=== PATIENT | female | born 1945 | race Caucasian/White ===

== ENCOUNTER 2017-08-21 11:22 | Inpatient (IN) | payer OTHER ==
[~2017-08-21] VITALS: Ht 157.5 cm; Wt 71.7 kg
[~2017-08-21 11:22] MED LIST: AMIODARONE; AMIODARONE HCL200 MG PO; ASPIR 8181 MG PO; ASPIRIN; CATAPRES0.1 MG PO; COUMADIN5 MG PO; DIGOXIN125 MCG PO; FUROSEMIDE; FUROSEMIDE20 MG PO; HYDRALAZINE HCL25 MG PO; KEFLEX250 MG PO; LASIX40 MG PO; LEVOTHYROXINE150 MCG PO; LOPRESSOR25 MG PO; MEDROL4 MG/DOSE- PO; METOPROLOL; METOPROLOL SUCC25 MG PO; METOPROLOL SUCC50 MG PO; METOPROLOL TART50 MG PO; MIDODRINE HCL2.5 MG PO; MIDORINE PO; PRAVACHOL40 MG PO; PRAVASTATIN; PREDNISONE5 MG PO; SODIUM BICARBO650 MG PO; SODIUM BICARBONATE; SYMBICORT 80-10.2 GM INH; THYROID; ULTRACET TABLE1 EACH PO; VITAMIN B-12500 MCG PO; VITAMIN B12-FO1 EACH PO; VITAMIN D; VITAMIN D400 UNI1 PO; VITAMIN D400 UNIT PO; WARFARIN SODIU2.5 MG PO; XOPENEX1.25 MG/3 INH; [UNRECOGNIZED DRUG - CODE] PO
--- OUTSIDE RECORDS SUMMARY | 2017-08-21 11:26 | XMS REPORT ---
Author Author [facility] Address Unknown Phone Unavailable Care Team Providers Care Wheel Adjuster Name Role Phone BREE SUSHILA Unavailable Unavailable CARLY RINCON Unavailable Unavailable KETTY BEAR Unavailable Unavailable Problems This patient has no known problems. Allergies, Adverse Reactions, Alerts This patient has no known allergies or adverse reactions. Medications This patient has no known medications. Results Test Description Test Time Test Comments Text Results Atomic Results Result Comments HEPATITIS B SURFACE ANTIGEN 2017-03-25 09:53:00 HEPATITIS B SURFACE ANTIGEN (2) (BEAKER) (test pnwc=5997) Nonreactive Nonreactive CBC W/PLT COUNT & AUTO [id number] 05:35:00* Test Item Value Reference Range Comments WHITE BLOOD CELL COUNT (BEAKER) (test kczq=445) 5.1 K/ L 3.5-10.5 RED BLOOD CELL COUNT (BEAKER) (test zkoj=886) 3.23 M/ L 3.93-5.22 HEMOGLOBIN (BEAKER) (test cvrc=904) 9.7 GM/DL 11.2-15.7 HEMATOCRIT (BEAKER) (test eunt=283) 32.1 % 34.1-44.9 MEAN CORPUSCULAR VOLUME (BEAKER) (test ulle=471) 99.4 fL 79.4-94.8 MEAN CORPUSCULAR HEMOGLOBIN (BEAKER) (test lhoi=351) 30.0 pg 25.6-32.2 MEAN CORPUSCULAR HEMOGLOBIN CONC (BEAKER) (test kpdr=683) 30.2 GM/DL 32.2- 35.5 RED CELL DISTRIBUTION WIDTH (BEAKER) (test dwxv=844) 18.3 % 11.7-14.4 PLATELET COUNT (BEAKER) (test rpvg=708) 92 K/CU MM 150-450 MEAN PLATELET VOLUME (BEAKER) (test thpr=650) 11.5 fL 9.4-12.3 NUCLEATED RED BLOOD CELLS (BEAKER) (test gdhz=131) 0 /100 WBC 0-0 NEUTROPHILS RELATIVE PERCENT (BEAKER) (test oith=242) 64 % LYMPHOCYTES RELATIVE PERCENT (BEAKER) (test ipac=680) 18 % MONOCYTES RELATIVE PERCENT (BEAKER) (test drvn=952) 10 % EOSINOPHILS RELATIVE PERCENT (BEAKER) (test enmz=926) 7 % BASOPHILS RELATIVE PERCENT (BEAKER) (test xnyr=416) 1 % NEUTROPHILS ABSOLUTE COUNT (BEAKER) (test wlyl=202) 3.27 K/ L 1.56-6.13 LYMPHOCYTES ABSOLUTE COUNT (BEAKER) (test tkug=859) 0.89 K/ L 1.18-3.74 MONOCYTES ABSOLUTE COUNT (BEAKER) (test btra=040) 0.48 K/ L 0.24-0.36 EOSINOPHILS ABSOLUTE COUNT (BEAKER) (test hury=072) 0.36 K/ L 0.04-0.36 BASOPHILS ABSOLUTE COUNT (BEAKER) (test jrdh=483) 0.06 K/ L 0.01-0.08 IMMATURE GRANULOCYTES-RELATIVE PERCENT (BEAKER) (test kzhs=8011) 0 % 0-1 BASIC METABOLIC [id number] 04:31:00* Test Item Value Reference Range Comments SODIUM (BEAKER) (test zslx=804) 135 meq/L 136-145 POTASSIUM (BEAKER) (test upkt=755) 5.5 meq/L 3.5-5.1 CHLORIDE (BEAKER) (test grse=900) 102 meq/L 98-107 CO2 (BEAKER) (test ouqg=120) 22 meq/L 22-29 BLOOD UREA NITROGEN (BEAKER) (test ghrj=062) 49 mg/dL 7-21 CREATININE (BEAKER) (test betd=389) 7.52 mg/dL 0.57-1.25 GLUCOSE RANDOM (BEAKER) (test eiip=839) 74 mg/dL 70-105 CALCIUM (BEAKER) (test scws=314) 8.1 mg/dL 8.4-10.2 EGFR (BEAKER) (test xadg=7546) 5 mL/min/1.73 sq m ESTIMATED GFR IS NOT ACCURATE CREATININE CLEARANCE IN PREDICTING GLOMERULAR FILTRATION RATE. ESTIMATED GFR IS NOT APPLICABLE FOR DIALYSIS PATIENTS. PROTHROMBIN TIME/[id number] 04:22:00* Test Item Value Reference Range Comments PROTIME (BEAKER) (test qowc=538) 15.6 seconds 11.7-14.7 INR (BEAKER) (test tkzf=482) 1.3 <=5.9 RECOMMENDED COUMADIN/WARFARIN INR THERAPY RANGESSTANDARD DOSE: 2.0 - 3.0 Includes: PROPHYLAXIS for venous thrombosis, systemic embolization; TREATMENT for venous thrombosis and/or pulmonary embolus.HIGH RISK: Target INR is 2.5-3.5 for patients with mechanical heart valves.While on warfarin.[id number] 13:53:00* Test Item Value Reference Range Comments ACTIVATED CLOTTING TIME (BEAKER) (test blyv=023) 136 sec TESTED AT [place] [address] [id number] 13:43:00* Test Item Value Reference Range Comments ACTIVATED CLOTTING TIME (BEAKER) (test csvg=636) 241 sec TESTED AT [place] [address] [id number] 13:10:00* Test Item Value Reference Range Comments ACTIVATED CLOTTING TIME (BEAKER) (test oyas=385) 191 sec TESTED AT [place] [id number] POTASSIUM-STAT [id number] 09:14:00* Test Item Value Reference Range Comments POTASSIUM (BEAKER) (test nyim=356) 4.5 meq/L 3.6-5.5 B-TYPE NATRIURETIC FACTOR (BNP)2017-03-22 12:40:00* Test Item Value Reference Range Comments B-TYPE NATRIURETIC PEPTIDE (BEAKER) (test ogiz=153) 2627 pg/mL 0-100 BASIC METABOLIC [id number] 12:25:00* Test Item Value Reference Range Comments SODIUM (BEAKER) (test wutt=946) 138 meq/L 136-145 POTASSIUM (BEAKER) (test setq=337) 4.8 meq/L 3.5-5.1 CHLORIDE (BEAKER) (test auol=065) 97 meq/L 98-107 CO2 (BEAKER) (test fgxl=130) 26 meq/L 22-29 BLOOD UREA NITROGEN (BEAKER) (test ayvi=287) 36 mg/dL 7-21 CREATININE (BEAKER) (test ksla=478) 5.98 mg/dL 0.57-1.25 GLUCOSE RANDOM (BEAKER) (test iogy=161) 74 mg/dL 70-105 CALCIUM (BEAKER) (test rked=827) 9.0 mg/dL 8.4-10.2 EGFR (BEAKER) (test jagu=6454) mL/min/1.73 sq m INSUFFICIENT CLINICAL DATA TO CALCULATE ESTIMATED GFR. [id number] 12:18:00* Test Item Value Reference Range Comments ALBUMIN (BEAKER) (test inft=6832) 3.4 g/dL 3.5-5.0 PROTHROMBIN TIME/[id number] 12:08:00* Test Item Value Reference Range Comments PROTIME (BEAKER) (test vrax=499) 14.5 seconds 11.7-14.7 INR (BEAKER) (test dzqd=846) 1.1 <=5.9 RECOMMENDED COUMADIN/WARFARIN INR THERAPY RANGESSTANDARD DOSE: 2.0 - 3.0 Includes: PROPHYLAXIS for venous thrombosis, systemic embolization; TREATMENT for venous thrombosis and/or pulmonary embolus.HIGH RISK: Target INR is 2.5-3.5 for patients with mechanical heart valves.CBC W/PLT COUNT & AUTO [id number] 11:58:00* Test Item Value Reference Range Comments WHITE BLOOD CELL COUNT (BEAKER) (test jvzz=698) 5.6 K/ L 3.5-10.5 RED BLOOD CELL COUNT (BEAKER) (test qjxo=773) 3.75 M/ L 3.93-5.22 HEMOGLOBIN (BEAKER) (test hupg=715) 11.4 GM/DL 11.2-15.7 HEMATOCRIT (BEAKER) (test oamd=501) 37.4 % 34.1-44.9 MEAN CORPUSCULAR VOLUME (BEAKER) (test bmdi=495) 99.7 fL 79.4-94.8 MEAN CORPUSCULAR HEMOGLOBIN (BEAKER) (test uhjk=583) 30.4 pg 25.6-32.2 MEAN CORPUSCULAR HEMOGLOBIN CONC (BEAKER) (test xrcd=826) 30.5 GM/DL 32.2- 35.5 RED CELL DISTRIBUTION WIDTH (BEAKER) (test lbdd=712) 19.1 % 11.7-14.4 PLATELET COUNT (BEAKER) (test nloi=628) 118 K/CU MM 150-450 MEAN PLATELET VOLUME (BEAKER) (test fvxo=446) 11.3 fL 9.4-12.3 NUCLEATED RED BLOOD CELLS (BEAKER) (test ncje=676) 0 /100 WBC 0-0 NEUTROPHILS RELATIVE PERCENT (BEAKER) (test ikqh=615) 68 % LYMPHOCYTES RELATIVE PERCENT (BEAKER) (test bobu=250) 17 % MONOCYTES RELATIVE PERCENT (BEAKER) (test sglf=468) 8 % EOSINOPHILS RELATIVE PERCENT (BEAKER) (test xdsh=021) 6 % BASOPHILS RELATIVE PERCENT (BEAKER) (test hjqi=023) 1 % NEUTROPHILS ABSOLUTE COUNT (BEAKER) (test ojcs=505) 3.81 K/ L 1.56-6.13 LYMPHOCYTES ABSOLUTE COUNT (BEAKER) (test rmjx=847) 0.93 K/ L 1.18-3.74 MONOCYTES ABSOLUTE COUNT (BEAKER) (test jvou=275) 0.45 K/ L 0.24-0.36 EOSINOPHILS ABSOLUTE COUNT (BEAKER) (test zkff=670) 0.35 K/ L 0.04-0.36 BASOPHILS ABSOLUTE COUNT (BEAKER) (test ocpx=832) 0.06 K/ L 0.01-0.08 IMMATURE GRANULOCYTES-RELATIVE PERCENT (BEAKER) (test hfzy=6042) 0 % 0-1 CTA, CHEST, ABDOMEN - PELVIS, FOR [id number] 17:16:00Reason for exam:- >TAVR ProtocolAddendum BeginsREPORT STATUS:A ADDENDUM: Study reviewed by radiology. Agree with the nonvascular findings as described below. Signed: Shayne Gibson MDReport Verified Date/Time: 02/23/2017 17:16: 08 Reading Location: [facility] P048 Angio Body Reading RoomAddendum EndsFINAL REPORT CT angiography of the thoracoabdominal aorta and pelvic arteries, 23 February 2017 INDICATION: This is a 72 years old female, with a diagnosis of aortic stenosis presents for preprocedure TAVR assessment. This study is performed in attempt to avoid invasive procedure. TECHNIQUE: Spiral acquisition before and during contrast administration using a Paulette multidetector CT scanner. Multiplanar 3-D volume rendering reformation was performed using an independent workstation interactively by the dictating physician and and the 3-D specialist. The amount of contrast used and method of administration can be found in the scanned EPIC document. This exam was performed according to our departmental dose-optimization program, which includes automated exposure control, adjustment of the mA and/or kV according to patient size and/or use of iterative reconstruction technique. Dose modulation, iterative reconstruction, and/or weight based adjustment of the mA/ kV was utilized to reduce the radiation dose to as low as reasonably achievable. This is a second examination due to IV infiltration during test bolus a few days ago. FINDINGS: VASCULAR: The central pulmonary artery is mildly prominent, measure 3.3 cm in diameter. No evidence of central pulmonary artery embolism is seen. The left ventricle is mildly prominent. Mitral annular calcification is seen, both posteriorly and anteriorly. Left and right atrial enlargement is identified. Diffuse coronary artery calcification is seen in all three coronary territories. A DOLAN graft is identified. At the level of the left brachiocephalic vein, the DOLAN is at most 102 mm behind the sternum at image 67 of the 35% reconstruction. More inferiorly, at image 85, it is approximately 1.3 cm behind the sternum. One bypass graft is seen to the RCA territory and another bypass graft is seen to the left circumflex territory. These grafts, at image 115, is approximately 2.4 cm behind the sternum. Both the RV free wall of the pericardium is in close proximity to the sternum, for example image 172. Patient has a diagnosis of aortic stenosis. Aortic Agatston score is [____]. Aortic valve area by planimetry is 74 mm sq. The location of aortic valvular calcification can be seen in dedicated reformatted data sent to PACS. Regarding the aorta, there is mild calcific atherosclerosis seen in the ascending thoracic aorta and both mild calcific and noncalcific atherosclerosis is seen in the transverse arch, and mild calcific and noncalcific atherosclerosis seen in the descending thoracic aorta. In the abdominal aorta, an endostent is identified, commencing inferior to the takeoff of the left renal artery, with typical salma crossing pattern. No endoleak is identified in the arterial phase image. No delayed images were obtained as this is a dedicated TAVR examination. Volumetric measurement would not be provided in the abdominal aorta. The common iliac, external iliac, common femoral, and the visualized superficial femoral arteries are patent with eccentric calcific atherosclerosis identified. The celiac axis has substantial calcific and noncalcific atherosclerosis seen proximally making accurate assessment limited and there is also mild to moderate calcific atherosclerosis seen in the takeoff of the SMA. The remainder of the SMA, and hepatic and splenic arteries are seen to be well enhanced by contrast. The renal arteries are not well seen. Arch vessel branching pattern is normal. Noncalcific atherosclerosis identified in the proximal left subclavian artery and the left subclavian artery, image 31 measuring 7 to 8 mm in diameter. Nonobstructive calcific atherosclerosis is identified in the right ablation artery, and the minimum diameter of the right occlusion artery, at image 25 is approximately 6 to 7 mm, image 23. Dimensions that may be helpful for TAVR are as below: There is mild calcific atherosclerosis identified in the ascending thoracic aorta. The major and minor aortic annulus diameter measures 24.0 and 18.9 mm, respectively. The aortic annulus perimeter measured 70 mm and the cross-sectional area measures 378 mm2. The aortic annulus diameter at the traditional LVOT and coronal LVOT measures 18.4 and 18.5 mm, respectively. For reference purpose, per [employer] S3 brochure, recommendation are as follows: CT area between 273 to 345 mm2 (20 mm valve); 338 to 430 mm2 (23 mm valve); 430 to 546 mm2 (26 mm valve); 540 to 683 mm2 (29 mm valve). For reference purpose, per [employer] brochure, recommendation are as follows: CT perimeter between 56.5-62.8 mm (23 mm valve); 62.8-72.3 mm (26 mm valve); 72.3-81.7 mm (29 mm valve); and 81.7-94.2. mm (34 mm valve). Agatston Score is 809. By planimetry, the aortic valve area is approximately 74 sq mm. The minimum distance between the most inferior bypass graft to the aortic annulus is approximately 3.6 cm. The sinus of Valsalva height, RCC (systole): 11.8 mmThe sinus of Valsalva height, LCC (systole): 12.9 mm The sinus of Valsalva diameter, RCC (diastole): 28.3 mmThe sinus of Valsalva diameter, LCC (diastole): 26.2 mmThe sinus of Valsalva diameter, NCC (diastole) : 26.2 mm The sinotubular junction measures approximately 26.3 x 25.5 mm. The aortic root angulation measures 31.5 degrees. The angle of delivery is COMORAN 7 CAR 4. The minimal and perpendicular abdominal aortic diameter measure 21.1 and 23.1 mm, respectively. The abdominal aortic diameter measure 6.2 x 6.0 cm by multiplanar reformation. The minimum and the perpendicular left common iliac artery measures 10.3 and 10.7 mm (stent). The minimum and the perpendicular left external iliac artery measures 7.3 and 8.4 mm, respectively with minimal tortuosity and no calcific atherosclerosis present. The minimum and the perpendicular left femoral artery measures 6.3 and 7.4 mm, respectively with minimal tortuosity and mild calcific atherosclerosis present. The minimum and the perpendicular right common iliac artery measures 11.11 and 11.3 mm (stent), with mild calcification seen in the most distal segment, at image 401, measures approximately 8.8 x 9.2 mm. The minimum and the perpendicular right external iliac artery measures 6.2 and 7.4 mm, respectively with mild tortuosity and mild calcific atherosclerosis present. The minimum and the perpendicular right femoral artery measures 6.3 and 6.7 mm, respectively with minimal tortuosity and mild calcific atherosclerosis present. NONVASCULAR: Assessment of the thyroid gland is limited. The chest wall and mediastinum is remarkable for prior median sternotomy. Note there are number of lymph nodes identified in the mediastinum, for example anterior to the ascending thoracic aorta at image 92, the short axis diameter is 1.5 cm and other smaller lymph nodes are seen, for example also below the sergio, image 110, measures up to 1.6 cm in diameter. Clinical significance of this finding is uncertain. Whilst this could be reactive in nature, this should be correlated clinically, and if needed follow with follow-up examination to document stability. In the lung windows, no obvious endobronchial lesion is seen. No pleural effusion is identified. Some subsegmental atelectatic changes are noted. Pulmonary vasculature appears mildly prominent that may reflect underlying cardiac congestion. Correlate with clinical examination. Overall, no suspicious pulmonary nodule is identified. In the abdomen, the liver and spleen appears unremarkable. The liver edge is smooth. No abnormal enhancing structure is identified. Gallstones are seen in the gallbladder with no wall thickening present. The adrenal glands appears not to be enlarged. The pancreas appears grossly unremarkable. The yuhaaviatam kidneys are not identified bilaterally. Correlate clinically. Some surgical clips are seen inferior to the spleen. Bowel is incompletely assessed by CT angiography as enteric contrast is not given. No obvious bowel dilation is identified. Suture material is identified in the right side indicating prior GI surgery. There is diverticular disease present. In addition, there could be some wall thickening identified in the descending and sigmoid colon. An addendum will be dictated thereafter, if needed. Tiny ventral hernia is identified, with loops of bowel present, at image 418. There could be another fat-containing hernia is identified to the right side of the abdomen, for example image 359. The bladder is not distended. The uterus not identified. No obvious abnormal adnexal masses seen though CT is not optimized in assessment of pelvic gynecological structures. There could be surgical clips identified in the dependent portion of the pelvis. Correlate clinically. In the bony windows, no acute bony pathology is identified. Some degenerative changes are noted. Conclusions: 1. Patient has a diagnosis of aortic stenosis. The Agatston score is over 1000. Aortic valve area is approximately 74 sq mm. There is mild calcific atherosclerosis seen in the ascending thoracic aorta. Mild mitral annular calcification is seen in the anterior posterior mitral valve annulus. Diffuse coronary artery calcification is identified and patient is post coronary artery bypass surgery with a DOLAN graft as well as two bypass grafts identified that are patent. Dimensions that may be helpful for TAVR as described above. 2. The central pulmonary artery is mildly prominent with no evidence of central pulmonary artery embolism as described. 3. Other findings as described above including the bowel findings, a degree of mediastinal adenopathy. 4. An addendum will be dictated by the Bridge Attacher Radiologist regarding the nonvascular findings. Signed: [facility] Verified Date/Time: 02/23/2017 12:22:19 Reading Location: [place] [address] Cardiology MRI IUM , [id number] 05:47:00* Test Item Value Reference Range Comments CALCIUM IONIZED (BEAKER) (test puvp=950) 1.09 mmol/L 1.12-1.27 PH, BLOOD (BEAKER) (test yart=0443) 7.39 BASIC METABOLIC [id number] 04:47:00* Test Item Value Reference Range Comments SODIUM (BEAKER) (test txzu=098) 138 meq/L 136-145 POTASSIUM (BEAKER) (test jllp=195) 4.8 meq/L 3.5-5.1 CHLORIDE (BEAKER) (test ohlf=401) 101 meq/L 98-107 CO2 (BEAKER) (test yfwg=066) 26 meq/L 22-29 BLOOD UREA NITROGEN (BEAKER) (test muku=929) 33 mg/dL 7-21 CREATININE (BEAKER) (test zcmj=578) 6.06 mg/dL 0.57-1.25 GLUCOSE RANDOM (BEAKER) (test tkcs=226) 92 mg/dL 70-105 CALCIUM (BEAKER) (test rqty=999) 9.1 mg/dL 8.4-10.2 EGFR (BEAKER) (test ceoc=7984) mL/min/1.73 sq m INSUFFICIENT CLINICAL DATA TO CALCULATE ESTIMATED GFR. [id number] 04:34:00* Test Item Value Reference Range Comments PHOSPHORUS (BEAKER) (test ujny=644) 3.9 mg/dL 2.3-4.7 [id number] 04:34:00* Test Item Value Reference Range Comments MAGNESIUM (BEAKER) (test nspt=538) 2.0 mg/dL 1.6-2.6 CBC W/PLT COUNT & AUTO [id number] 04:31:00* Test Item Value Reference Range Comments WHITE BLOOD CELL COUNT (BEAKER) (test iixg=949) 5.7 K/ L 3.5-10.5 RED BLOOD CELL COUNT (BEAKER) (test wepr=395) 3.07 M/ L 3.93-5.22 HEMOGLOBIN (BEAKER) (test kdzq=511) 9.0 GM/DL 11.2-15.7 HEMATOCRIT (BEAKER) (test hhrr=971) 29.4 % 34.1-44.9 MEAN CORPUSCULAR VOLUME (BEAKER) (test wivz=815) 95.8 fL 79.4-94.8 MEAN CORPUSCULAR HEMOGLOBIN (BEAKER) (test gbrl=500) 29.3 pg 25.6-32.2 MEAN CORPUSCULAR HEMOGLOBIN CONC (BEAKER) (test ihak=345) 30.6 GM/DL 32.2- 35.5 RED CELL DISTRIBUTION WIDTH (BEAKER) (test pncn=351) 17.3 % 11.7-14.4 PLATELET COUNT (BEAKER) (test doax=272) 164 K/CU MM 150-450 MEAN PLATELET VOLUME (BEAKER) (test crpf=871) 10.8 fL 9.4-12.3 NUCLEATED RED BLOOD CELLS (BEAKER) (test nvsh=542) 0 /100 WBC 0-0 NEUTROPHILS RELATIVE PERCENT (BEAKER) (test vxbo=790) 55 % LYMPHOCYTES RELATIVE PERCENT (BEAKER) (test qdtp=293) 20 % MONOCYTES RELATIVE PERCENT (BEAKER) (test ntxc=844) 11 % EOSINOPHILS RELATIVE PERCENT (BEAKER) (test qriv=418) 13 % BASOPHILS RELATIVE PERCENT (BEAKER) (test ndsb=489) 1 % NEUTROPHILS ABSOLUTE COUNT (BEAKER) (test pqbp=047) 3.11 K/ L 1.56-6.13 LYMPHOCYTES ABSOLUTE COUNT (BEAKER) (test jrpx=714) 1.16 K/ L 1.18-3.74 MONOCYTES ABSOLUTE COUNT (BEAKER) (test pkcd=689) 0.60 K/ L 0.24-0.36 EOSINOPHILS ABSOLUTE COUNT (BEAKER) (test yxcb=305) 0.71 K/ L 0.04-0.36 BASOPHILS ABSOLUTE COUNT (BEAKER) (test wjjd=381) 0.06 K/ L 0.01-0.08 IMMATURE GRANULOCYTES-RELATIVE PERCENT (BEAKER) (test whuw=9988) 1 % 0-1 BASIC METABOLIC [id number] 05:10:00* Test Item Value Reference Range Comments SODIUM (BEAKER) (test ajlq=372) 141 meq/L 136-145 POTASSIUM (BEAKER) (test ouox=813) 3.9 meq/L 3.5-5.1 CHLORIDE (BEAKER) (test cflj=581) 103 meq/L 98-107 CO2 (BEAKER) (test hbwm=166) 27 meq/L 22-29 BLOOD UREA NITROGEN (BEAKER) (test eqrd=960) 20 mg/dL 7-21 CREATININE (BEAKER) (test dydz=809) 4.29 mg/dL 0.57-1.25 GLUCOSE RANDOM (BEAKER) (test wepj=763) 105 mg/dL 70-105 CALCIUM (BEAKER) (test tfhx=584) 8.9 mg/dL 8.4-10.2 EGFR (BEAKER) (test arrk=5192) mL/min/1.73 sq m INSUFFICIENT CLINICAL DATA TO CALCULATE ESTIMATED GFR. CBC W/PLT COUNT & AUTO [id number] 05:05:00* Test Item Value Reference Range Comments WHITE BLOOD CELL COUNT (BEAKER) (test wsok=665) 5.2 K/ L 3.5-10.5 RED BLOOD CELL COUNT (BEAKER) (test bwhz=122) 3.03 M/ L 3.93-5.22 HEMOGLOBIN (BEAKER) (test teuv=501) 8.8 GM/DL 11.2-15.7 HEMATOCRIT (BEAKER) (test jllm=237) 28.9 % 34.1-44.9 MEAN CORPUSCULAR VOLUME (BEAKER) (test zlee=211) 95.4 fL 79.4-94.8 MEAN CORPUSCULAR HEMOGLOBIN (BEAKER) (test owxv=902) 29.0 pg 25.6-32.2 MEAN CORPUSCULAR HEMOGLOBIN CONC (BEAKER) (test wwsh=351) 30.4 GM/DL 32.2- 35.5 RED CELL DISTRIBUTION WIDTH (BEAKER) (test xiic=536) 17.4 % 11.7-14.4 PLATELET COUNT (BEAKER) (test vpdp=854) 175 K/CU MM 150-450 MEAN PLATELET VOLUME (BEAKER) (test dgfk=657) 10.7 fL 9.4-12.3 NUCLEATED RED BLOOD CELLS (BEAKER) (test vvgh=010) 0 /100 WBC 0-0 NEUTROPHILS RELATIVE PERCENT (BEAKER) (test csxw=314) 56 % LYMPHOCYTES RELATIVE PERCENT (BEAKER) (test xjjf=575) 18 % MONOCYTES RELATIVE PERCENT (BEAKER) (test afgb=569) 11 % EOSINOPHILS RELATIVE PERCENT (BEAKER) (test dhbd=767) 14 % BASOPHILS RELATIVE PERCENT (BEAKER) (test dwfq=052) 2 % NEUTROPHILS ABSOLUTE COUNT (BEAKER) (test vfiq=607) 2.90 K/ L 1.56-6.13 LYMPHOCYTES ABSOLUTE COUNT (BEAKER) (test meix=456) 0.91 K/ L 1.18-3.74 MONOCYTES ABSOLUTE COUNT (BEAKER) (test lqmp=794) 0.55 K/ L 0.24-0.36 EOSINOPHILS ABSOLUTE COUNT (BEAKER) (test rnni=547) 0.74 K/ L 0.04-0.36 BASOPHILS ABSOLUTE COUNT (BEAKER) (test jrrn=046) 0.08 K/ L 0.01-0.08 IMMATURE GRANULOCYTES-RELATIVE PERCENT (BEAKER) (test sfcg=6210) 0 % 0-1 CBC W/PLT COUNT & AUTO [id number] 05:28:00* Test Item Value Reference Range Comments WHITE BLOOD CELL COUNT (BEAKER) (test lfxx=604) 7.1 K/ L 3.5-10.5 RED BLOOD CELL COUNT (BEAKER) (test ddti=112) 2.98 M/ L 3.93-5.22 HEMOGLOBIN (BEAKER) (test bjjz=263) 8.7 GM/DL 11.2-15.7 HEMATOCRIT (BEAKER) (test pzub=197) 28.1 % 34.1-44.9 MEAN CORPUSCULAR VOLUME (BEAKER) (test bjfc=022) 94.3 fL 79.4-94.8 MEAN CORPUSCULAR HEMOGLOBIN (BEAKER) (test bkrn=802) 29.2 pg 25.6-32.2 MEAN CORPUSCULAR HEMOGLOBIN CONC (BEAKER) (test ihpi=721) 31.0 GM/DL 32.2- 35.5 RED CELL DISTRIBUTION WIDTH (BEAKER) (test vvna=822) 17.4 % 11.7-14.4 PLATELET COUNT (BEAKER) (test mftj=539) 177 K/CU MM 150-450 MEAN PLATELET VOLUME (BEAKER) (test oonp=353) 10.9 fL 9.4-12.3 NUCLEATED RED BLOOD CELLS (BEAKER) (test mnyi=801) 0 /100 WBC 0-0 NEUTROPHILS RELATIVE PERCENT (BEAKER) (test lxhw=366) 66 % LYMPHOCYTES RELATIVE PERCENT (BEAKER) (test fvya=209) 15 % MONOCYTES RELATIVE PERCENT (BEAKER) (test wazn=022) 7 % EOSINOPHILS RELATIVE PERCENT (BEAKER) (test mtjg=342) 12 % BASOPHILS RELATIVE PERCENT (BEAKER) (test wkpr=253) 1 % NEUTROPHILS ABSOLUTE COUNT (BEAKER) (test afza=419) 4.67 K/ L 1.56-6.13 LYMPHOCYTES ABSOLUTE COUNT (BEAKER) (test ewdd=925) 1.03 K/ L 1.18-3.74 MONOCYTES ABSOLUTE COUNT (BEAKER) (test gegm=857) 0.46 K/ L 0.24-0.36 EOSINOPHILS ABSOLUTE COUNT (BEAKER) (test jqki=362) 0.85 K/ L 0.04-0.36 BASOPHILS ABSOLUTE COUNT (BEAKER) (test oarj=720) 0.06 K/ L 0.01-0.08 IMMATURE GRANULOCYTES-RELATIVE PERCENT (BEAKER) (test fgcy=6576) 0 % 0-1 CALCIUM, [id number] 05:19:00* Test Item Value Reference Range Comments CALCIUM IONIZED (BEAKER) (test hacc=799) 1.09 mmol/L 1.12-1.27 PH, BLOOD (BEAKER) (test qcjw=3305) 7.42 [id number] 05:19:00* Test Item Value Reference Range Comments PHOSPHORUS (BEAKER) (test hljn=222) 4.6 mg/dL 2.3-4.7 [id number] 05:19:00* Test Item Value Reference Range Comments MAGNESIUM (BEAKER) (test rsjg=235) 1.9 mg/dL 1.6-2.6 BASIC METABOLIC [id number] 05:19:00* Test Item Value Reference Range Comments SODIUM (BEAKER) (test ymsk=847) 141 meq/L 136-145 POTASSIUM (BEAKER) (test xtik=947) 4.3 meq/L 3.5-5.1 CHLORIDE (BEAKER) (test oudm=706) 103 meq/L 98-107 CO2 (BEAKER) (test wfnp=428) 27 meq/L 22-29 BLOOD UREA NITROGEN (BEAKER) (test nkcd=655) 47 mg/dL 7-21 CREATININE (BEAKER) (test xoxl=570) 7.22 mg/dL 0.57-1.25 GLUCOSE RANDOM (BEAKER) (test hcxe=059) 105 mg/dL 70-105 CALCIUM (BEAKER) (test hopl=682) 8.9 mg/dL 8.4-10.2 EGFR (BEAKER) (test qlnp=8898) mL/min/1.73 sq m INSUFFICIENT CLINICAL DATA TO CALCULATE ESTIMATED GFR. BASIC METABOLIC [id number] 05:40:00* Test Item Value Reference Range Comments SODIUM (BEAKER) (test sbqr=877) 140 meq/L 136-145 POTASSIUM (BEAKER) (test cjby=143) 4.7 meq/L 3.5-5.1 CHLORIDE (BEAKER) (test ehfk=305) 103 meq/L 98-107 CO2 (BEAKER) (test ishs=538) 30 meq/L 22-29 BLOOD UREA NITROGEN (BEAKER) (test rnyg=320) 31 mg/dL 7-21 CREATININE (BEAKER) (test gcvr=314) 5.85 mg/dL 0.57-1.25 GLUCOSE RANDOM (BEAKER) (test ftxu=223) 96 mg/dL 70-105 CALCIUM (BEAKER) (test fwvg=877) 8.8 mg/dL 8.4-10.2 EGFR (BEAKER) (test tsrt=9222) mL/min/1.73 sq m INSUFFICIENT CLINICAL DATA TO CALCULATE ESTIMATED GFR. CBC W/PLT COUNT & AUTO [id number] 05:22:00* Test Item Value Reference Range Comments WHITE BLOOD CELL COUNT (BEAKER) (test gkjl=681) 7.6 K/ L 3.5-10.5 RED BLOOD CELL COUNT (BEAKER) (test yqhd=679) 3.02 M/ L 3.93-5.22 HEMOGLOBIN (BEAKER) (test vvwh=653) 8.8 GM/DL 11.2-15.7 HEMATOCRIT (BEAKER) (test zcxl=823) 28.9 % 34.1-44.9 MEAN CORPUSCULAR VOLUME (BEAKER) (test lesj=761) 95.7 fL 79.4-94.8 MEAN CORPUSCULAR HEMOGLOBIN (BEAKER) (test mnei=636) 29.1 pg 25.6-32.2 MEAN CORPUSCULAR HEMOGLOBIN CONC (BEAKER) (test vwqt=697) 30.4 GM/DL 32.2- 35.5 RED CELL DISTRIBUTION WIDTH (BEAKER) (test aquv=059) 17.8 % 11.7-14.4 PLATELET COUNT (BEAKER) (test rtxx=212) 180 K/CU MM 150-450 MEAN PLATELET VOLUME (BEAKER) (test vash=188) 10.6 fL 9.4-12.3 NUCLEATED RED BLOOD CELLS (BEAKER) (test ibst=623) 0 /100 WBC 0-0 NEUTROPHILS RELATIVE PERCENT (BEAKER) (test mlag=667) 65 % LYMPHOCYTES RELATIVE PERCENT (BEAKER) (test dtwo=673) 14 % MONOCYTES RELATIVE PERCENT (BEAKER) (test cnfp=240) 7 % EOSINOPHILS RELATIVE PERCENT (BEAKER) (test pwar=469) 13 % BASOPHILS RELATIVE PERCENT (BEAKER) (test eqte=405) 1 % NEUTROPHILS ABSOLUTE COUNT (BEAKER) (test vper=785) 4.93 K/ L 1.56-6.13 LYMPHOCYTES ABSOLUTE COUNT (BEAKER) (test puxe=256) 1.09 K/ L 1.18-3.74 MONOCYTES ABSOLUTE COUNT (BEAKER) (test ukof=074) 0.55 K/ L 0.24-0.36 EOSINOPHILS ABSOLUTE COUNT (BEAKER) (test gxgz=953) 0.95 K/ L 0.04-0.36 BASOPHILS ABSOLUTE COUNT (BEAKER) (test fzbc=846) 0.05 K/ L 0.01-0.08 IMMATURE GRANULOCYTES-RELATIVE PERCENT (BEAKER) (test rsal=2353) 0 % 0-1 BASIC METABOLIC [id number] 05:59:00* Test Item Value Reference Range Comments SODIUM (BEAKER) (test wcdq=904) 139 meq/L 136-145 POTASSIUM (BEAKER) (test htxo=398) 4.0 meq/L 3.5-5.1 CHLORIDE (BEAKER) (test hjdb=289) 103 meq/L 98-107 CO2 (BEAKER) (test molt=915) 30 meq/L 22-29 BLOOD UREA NITROGEN (BEAKER) (test rxrl=011) 18 mg/dL 7-21 CREATININE (BEAKER) (test hvay=905) 3.76 mg/dL 0.57-1.25 GLUCOSE RANDOM (BEAKER) (test wtfv=973) 109 mg/dL 70-105 CALCIUM (BEAKER) (test xkbq=088) 8.6 mg/dL 8.4-10.2 EGFR (BEAKER) (test nayo=2583) mL/min/1.73 sq m INSUFFICIENT CLINICAL DATA TO CALCULATE ESTIMATED GFR. CBC W/PLT COUNT & AUTO [id number] 05:54:00* Test Item Value Reference Range Comments WHITE BLOOD CELL COUNT (BEAKER) (test xice=100) 7.1 K/ L 3.5-10.5 RED BLOOD CELL COUNT (BEAKER) (test vzyp=090) 2.85 M/ L 3.93-5.22 HEMOGLOBIN (BEAKER) (test blih=387) 8.3 GM/DL 11.2-15.7 HEMATOCRIT (BEAKER) (test gllq=311) 26.8 % 34.1-44.9 MEAN CORPUSCULAR VOLUME (BEAKER) (test htts=546) 94.0 fL 79.4-94.8 MEAN CORPUSCULAR HEMOGLOBIN (BEAKER) (test vwar=551) 29.1 pg 25.6-32.2 MEAN CORPUSCULAR HEMOGLOBIN CONC (BEAKER) (test fehg=278) 31.0 GM/DL 32.2- 35.5 RED CELL DISTRIBUTION WIDTH (BEAKER) (test qzuh=949) 17.8 % 11.7-14.4 PLATELET COUNT (BEAKER) (test ljnu=382) 175 K/CU MM 150-450 MEAN PLATELET VOLUME (BEAKER) (test sqpi=787) 10.7 fL 9.4-12.3 NUCLEATED RED BLOOD CELLS (BEAKER) (test hnkv=283) 0 /100 WBC 0-0 NEUTROPHILS RELATIVE PERCENT (BEAKER) (test otsz=278) 64 % LYMPHOCYTES RELATIVE PERCENT (BEAKER) (test sqqv=322) 15 % MONOCYTES RELATIVE PERCENT (BEAKER) (test ohes=388) 8 % EOSINOPHILS RELATIVE PERCENT (BEAKER) (test ipvk=794) 12 % BASOPHILS RELATIVE PERCENT (BEAKER) (test mifs=953) 1 % NEUTROPHILS ABSOLUTE COUNT (BEAKER) (test ckyj=642) 4.53 K/ L 1.56-6.13 LYMPHOCYTES ABSOLUTE COUNT (BEAKER) (test auku=780) 1.07 K/ L 1.18-3.74 MONOCYTES ABSOLUTE COUNT (BEAKER) (test jlez=020) 0.55 K/ L 0.24-0.36 EOSINOPHILS ABSOLUTE COUNT (BEAKER) (test jkqo=696) 0.86 K/ L 0.04-0.36 BASOPHILS ABSOLUTE COUNT (BEAKER) (test fkaa=500) 0.04 K/ L 0.01-0.08 IMMATURE GRANULOCYTES-RELATIVE PERCENT (BEAKER) (test jnvj=2515) 0 % 0-1 [id number] 05:31:00* Test Item Value Reference Range Comments PHOSPHORUS (BEAKER) (test ibpu=807) 2.9 mg/dL 2.3-4.7 CALCIUM, [id number] 06:32:00* Test Item Value Reference Range Comments CALCIUM IONIZED (BEAKER) (test nqhu=603) 1.05 mmol/L 1.12-1.27 PH, BLOOD (BEAKER) (test jspd=3974) 7.41 BASIC METABOLIC [id number] 05:29:00* Test Item Value Reference Range Comments SODIUM (BEAKER) (test iejj=036) 140 meq/L 136-145 POTASSIUM (BEAKER) (test zpjs=617) 4.4 meq/L 3.5-5.1 CHLORIDE (BEAKER) (test jxbn=776) 104 meq/L 98-107 CO2 (BEAKER) (test pjsm=322) 27 meq/L 22-29 BLOOD UREA NITROGEN (BEAKER) (test omeh=975) 33 mg/dL 7-21 CREATININE (BEAKER) (test hpcz=059) 5.82 mg/dL 0.57-1.25 GLUCOSE RANDOM (BEAKER) (test izof=382) 92 mg/dL 70-105 CALCIUM (BEAKER) (test utvl=996) 8.3 mg/dL 8.4-10.2 EGFR (BEAKER) (test javi=1614) mL/min/1.73 sq m INSUFFICIENT CLINICAL DATA TO CALCULATE ESTIMATED GFR. [id number] 05:22:00* Test Item Value Reference Range Comments PHOSPHORUS (BEAKER) (test tfbi=654) 4.4 mg/dL 2.3-4.7 [id number] 05:22:00* Test Item Value Reference Range Comments MAGNESIUM (BEAKER) (test anbk=475) 1.8 mg/dL 1.6-2.6 CBC W/PLT COUNT & AUTO [id number] 04:55:00* Test Item Value Reference Range Comments WHITE BLOOD CELL COUNT (BEAKER) (test yarr=126) 9.3 K/ L 3.5-10.5 RED BLOOD CELL COUNT (BEAKER) (test ebkt=102) 2.41 M/ L 3.93-5.22 HEMOGLOBIN (BEAKER) (test qnku=209) 6.9 GM/DL 11.2-15.7 HEMATOCRIT (BEAKER) (test kmbv=315) 23.3 % 34.1-44.9 MEAN CORPUSCULAR VOLUME (BEAKER) (test qqlp=248) 96.7 fL 79.4-94.8 MEAN CORPUSCULAR HEMOGLOBIN (BEAKER) (test yami=631) 28.6 pg 25.6-32.2 MEAN CORPUSCULAR HEMOGLOBIN CONC (BEAKER) (test hada=428) 29.6 GM/DL 32.2- 35.5 RED CELL DISTRIBUTION WIDTH (BEAKER) (test wdfy=794) 18.2 % 11.7-14.4 PLATELET COUNT (BEAKER) (test ymmy=473) 180 K/CU MM 150-450 MEAN PLATELET VOLUME (BEAKER) (test jjuc=878) 10.5 fL 9.4-12.3 NUCLEATED RED BLOOD CELLS (BEAKER) (test ykmp=328) 0 /100 WBC 0-0 NEUTROPHILS RELATIVE PERCENT (BEAKER) (test reed=006) 69 % LYMPHOCYTES RELATIVE PERCENT (BEAKER) (test hnpu=354) 13 % MONOCYTES RELATIVE PERCENT (BEAKER) (test efxn=696) 8 % EOSINOPHILS RELATIVE PERCENT (BEAKER) (test opzz=391) 10 % BASOPHILS RELATIVE PERCENT (BEAKER) (test jrnj=501) 0 % NEUTROPHILS ABSOLUTE COUNT (BEAKER) (test cduc=913) 6.41 K/ L 1.56-6.13 LYMPHOCYTES ABSOLUTE COUNT (BEAKER) (test inil=624) 1.20 K/ L 1.18-3.74 MONOCYTES ABSOLUTE COUNT (BEAKER) (test yial=649) 0.72 K/ L 0.24-0.36 EOSINOPHILS ABSOLUTE COUNT (BEAKER) (test hawn=779) 0.92 K/ L 0.04-0.36 BASOPHILS ABSOLUTE COUNT (BEAKER) (test bccj=829) 0.03 K/ L 0.01-0.08 IMMATURE GRANULOCYTES-RELATIVE PERCENT (BEAKER) (test cyvc=8132) 0 % 0-1 CT, [id number] 10:10:00FINAL REPORT CT OF THE ABDOMEN AND PELVIS CLINICAL HISTORY: GI bleed TECHNIQUE: CT of the abdomen and pelvis is performed without intravenous contrast administration. This exam was performed according to our departmental dose-optimization program which includes automated exposure control, adjustment of the mA and/or kV according to patient size and/or use of iterative reconstruction technique. COMPARISON FILM: None DISCUSSION: LOWER THORAX: Trace bilateral pleural effusions. Subsegmental bibasilar atelectasis and scarring. Cardiomegaly. HEPATOBILIARY: Cholelithiasis. Mildly cirrhotic morphology of the liver.PANCREAS: No pancreatic ductal dilation. No peripancreatic inflammatory change. SPLEEN: No splenomegaly. ADRENALS: No nodule. 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 GI TRACT: Moderate colonic diverticulosis. There is minimal stranding adjacent to the sigmoid colon with minimal wall thickening. Assessment is limited bilateral intravenous and oral contrast. There are findings of prior partial right colectomy. Remainder of the bowel is grossly unremarkable. PERITONEUM/RETROPERITONEUM: No free fluid or free air.LYMPH NODES: No upper abdominal, retroperitoneal, mesenteric, or pelvic lymphadenopathy.VESSELS: Assessment of the vasculature is limited by lack of intravenous contrast. There is a 5.7 x 5.8 cm infrarenal abdominal aortic aneurysm which extends to the aortic bifurcation. An aortobiiliac stent graft is present. BONES AND SOFT TISSUES: Degenerative changes in the lower lumbar spine. No destructive osseous lesion. IMPRESSION: Moderate colonic diverticulosis with wall thickening and minimal stranding adjacent to the sigmoid colon. Assessment is limited by lack of intravenous contrast. Findings may suggest diverticulitis or colitis in the appropriate clinical context. Infrarenal abdominal aortic aneurysm measuring 5.8 cm, status post aortobiiliac stent graft placement. Assessment for leak or aortoenteric fistula is difficult without intravenous contrast. Findings of prior partial right hemicolectomy, bilateral nephrectomy, hysterectomy, and likely pelvic lymph node dissection. Signed: Naveen Honeycutt MDReport Verified Date/Time: 02/17/2017 10:10:39 Reading Location: [address] Radiology Reading Room C METABOLIC [id number] 03:53: 00* Test Item Value Reference Range Comments SODIUM (BEAKER) (test grkt=900) 141 meq/L 136-145 POTASSIUM (BEAKER) (test otdv=533) 3.2 meq/L 3.5-5.1 CHLORIDE (BEAKER) (test hlwg=612) 104 meq/L 98-107 CO2 (BEAKER) (test lptt=712) 29 meq/L 22-29 BLOOD UREA NITROGEN (BEAKER) (test lqjo=017) 21 mg/dL 7-21 CREATININE (BEAKER) (test ewlm=553) 2.93 mg/dL 0.57-1.25 GLUCOSE RANDOM (BEAKER) (test rbtk=684) 95 mg/dL 70-105 CALCIUM (BEAKER) (test vwnp=162) 8.5 mg/dL 8.4-10.2 EGFR (BEAKER) (test uiyh=8616) mL/min/1.73 sq m INSUFFICIENT CLINICAL DATA TO CALCULATE ESTIMATED GFR. [id number] 03:51:00* Test Item Value Reference Range Comments PHOSPHORUS (BEAKER) (test yfcj=528) 2.0 mg/dL 2.3-4.7 [id number] 03:51:00* Test Item Value Reference Range Comments MAGNESIUM (BEAKER) (test uoro=370) 1.8 mg/dL 1.6-2.6 CALCIUM, [id number] 03:43:00* Test Item Value Reference Range Comments CALCIUM IONIZED (BEAKER) (test ugij=862) 1.13 mmol/L 1.12-1.27 PH, BLOOD (BEAKER) (test zufp=1936) 7.51 CBC W/PLT COUNT & AUTO [id number] 03:30:00* Test Item Value Reference Range Comments WHITE BLOOD CELL COUNT (BEAKER) (test fyce=083) 7.7 K/ L 3.5-10.5 RED BLOOD CELL COUNT (BEAKER) (test dwqq=165) 2.57 M/ L 3.93-5.22 HEMOGLOBIN (BEAKER) (test xwgd=530) 7.5 GM/DL 11.2-15.7 HEMATOCRIT (BEAKER) (test wcvc=338) 23.6 % 34.1-44.9 MEAN CORPUSCULAR VOLUME (BEAKER) (test evwl=764) 91.8 fL 79.4-94.8 MEAN CORPUSCULAR HEMOGLOBIN (BEAKER) (test awft=217) 29.2 pg 25.6-32.2 MEAN CORPUSCULAR HEMOGLOBIN CONC (BEAKER) (test nobi=318) 31.8 GM/DL 32.2- 35.5 RED CELL DISTRIBUTION WIDTH (BEAKER) (test mfru=325) 17.9 % 11.7-14.4 PLATELET COUNT (BEAKER) (test eupa=583) 181 K/CU MM 150-450 MEAN PLATELET VOLUME (BEAKER) (test sgxs=401) 10.3 fL 9.4-12.3 NUCLEATED RED BLOOD CELLS (BEAKER) (test wnct=660) 0 /100 WBC 0-0 NEUTROPHILS RELATIVE PERCENT (BEAKER) (test ggeg=207) 73 % LYMPHOCYTES RELATIVE PERCENT (BEAKER) (test tqfi=344) 12 % MONOCYTES RELATIVE PERCENT (BEAKER) (test xple=126) 6 % EOSINOPHILS RELATIVE PERCENT (BEAKER) (test dsdo=918) 9 % BASOPHILS RELATIVE PERCENT (BEAKER) (test vuui=970) 0 % NEUTROPHILS ABSOLUTE COUNT (BEAKER) (test jbqj=955) 5.56 K/ L 1.56-6.13 LYMPHOCYTES ABSOLUTE COUNT (BEAKER) (test pdyy=906) 0.89 K/ L 1.18-3.74 MONOCYTES ABSOLUTE COUNT (BEAKER) (test vmzo=423) 0.47 K/ L 0.24-0.36 EOSINOPHILS ABSOLUTE COUNT (BEAKER) (test izqh=654) 0.69 K/ L 0.04-0.36 BASOPHILS ABSOLUTE COUNT (BEAKER) (test kmpe=524) 0.02 K/ L 0.01-0.08 IMMATURE GRANULOCYTES-RELATIVE PERCENT (BEAKER) (test rukq=6553) 0 % 0-1 HEMORRHAGE IMAGING, [id number] 10:07:00Per Dr. Jacobson, HarshinieFINAL REPORT PROCEDURE: HEMORRHAGE STUDY with RBCs CPT CODE : 18523 INDICATION: Gastrointestinal Bleeding PROTOCOL: 19.8 mCi of Tc-99m was injected intravenously as labeled autologous red blood cells. Flow images of the abdomen were obtained, followed by serial images for approximately 60 minutes. Additional images were obtained 4 hours and 18 hours hours after tracer injection. FINDINGS: There is increase in tracer activity in the right upper quadrant of the abdomen in the area of the hepatic flexure, as well as in the mid abdomen. IMPRESSION: Findings are suggestive of interval gastrointestinal bleed. Signed: Marky Cheathamort Verified Date/Time: 02/16/2017 10:07:39 Reading Location: [address] Reading Room Electronically signed by: MARKY CHEATHAM M.D. on 10:07 AM CALCIUM, [id number] 05:53:00* Test Item Value Reference Range Comments CALCIUM IONIZED (BEAKER) (test yshw=552) 0.99 mmol/L 1.12-1.27 PH, BLOOD (BEAKER) (test vrtp=5902) 7.43 BASIC METABOLIC [id number] 05:40:00* Test Item Value Reference Range Comments SODIUM (BEAKER) (test nfum=757) 139 meq/L 136-145 POTASSIUM (BEAKER) (test jayo=032) 4.8 meq/L 3.5-5.1 CHLORIDE (BEAKER) (test ckha=023) 101 meq/L 98-107 CO2 (BEAKER) (test slqr=795) 25 meq/L 22-29 BLOOD UREA NITROGEN (BEAKER) (test lqvx=603) 61 mg/dL 7-21 CREATININE (BEAKER) (test egha=476) 6.83 mg/dL 0.57-1.25 GLUCOSE RANDOM (BEAKER) (test xvnm=149) 87 mg/dL 70-105 CALCIUM (BEAKER) (test fyze=664) 8.2 mg/dL 8.4-10.2 EGFR (BEAKER) (test yyoo=3550) mL/min/1.73 sq m INSUFFICIENT CLINICAL DATA TO CALCULATE ESTIMATED GFR. [id number] 05:38:00* Test Item Value Reference Range Comments PHOSPHORUS (BEAKER) (test bito=782) 5.8 mg/dL 2.3-4.7 [id number] 05:38:00* Test Item Value Reference Range Comments MAGNESIUM (BEAKER) (test odty=043) 2.0 mg/dL 1.6-2.6 PROTHROMBIN [id number] 05:36:00* Test Item Value Reference Range Comments PROTIME (BEAKER) (test stpv=172) 14.0 seconds 11.7-14.7 INR (BEAKER) (test amgw=163) 1.1 <=5.9 RECOMMENDED COUMADIN/WARFARIN INR THERAPY RANGESSTANDARD DOSE: 2.0 - 3.0 Includes: PROPHYLAXIS for venous thrombosis, systemic embolization; TREATMENT for venous thrombosis and/or pulmonary embolus.HIGH RISK: Target INR is 2.5-3.5 for patients with mechanical heart valves.CBC W/PLT COUNT & AUTO [id number] 05:20:00* Test Item Value Reference Range Comments WHITE BLOOD CELL COUNT (BEAKER) (test swrx=337) 7.4 K/ L 3.5-10.5 RED BLOOD CELL COUNT (BEAKER) (test bgvp=846) 2.50 M/ L 3.93-5.22 HEMOGLOBIN (BEAKER) (test svzd=917) 7.3 GM/DL 11.2-15.7 HEMATOCRIT (BEAKER) (test dwbc=351) 23.6 % 34.1-44.9 MEAN CORPUSCULAR VOLUME (BEAKER) (test gooq=733) 94.4 fL 79.4-94.8 MEAN CORPUSCULAR HEMOGLOBIN (BEAKER) (test lwau=476) 29.2 pg 25.6-32.2 MEAN CORPUSCULAR HEMOGLOBIN CONC (BEAKER) (test dmgt=373) 30.9 GM/DL 32.2- 35.5 RED CELL DISTRIBUTION WIDTH (BEAKER) (test pwzx=659) 18.1 % 11.7-14.4 PLATELET COUNT (BEAKER) (test bmak=543) 180 K/CU MM 150-450 MEAN PLATELET VOLUME (BEAKER) (test rrhg=135) 10.9 fL 9.4-12.3 NUCLEATED RED BLOOD CELLS (BEAKER) (test xmvj=242) 0 /100 WBC 0-0 NEUTROPHILS RELATIVE PERCENT (BEAKER) (test omxc=717) 70 % LYMPHOCYTES RELATIVE PERCENT (BEAKER) (test xgaz=113) 16 % MONOCYTES RELATIVE PERCENT (BEAKER) (test btwc=240) 8 % EOSINOPHILS RELATIVE PERCENT (BEAKER) (test sdjj=487) 6 % BASOPHILS RELATIVE PERCENT (BEAKER) (test ckgb=701) 0 % NEUTROPHILS ABSOLUTE COUNT (BEAKER) (test slqi=890) 5.18 K/ L 1.56-6.13 LYMPHOCYTES ABSOLUTE COUNT (BEAKER) (test dkpb=685) 1.17 K/ L 1.18-3.74 MONOCYTES ABSOLUTE COUNT (BEAKER) (test wval=311) 0.61 K/ L 0.24-0.36 EOSINOPHILS ABSOLUTE COUNT (BEAKER) (test afwk=996) 0.41 K/ L 0.04-0.36 BASOPHILS ABSOLUTE COUNT (BEAKER) (test pmrq=205) 0.03 K/ L 0.01-0.08 IMMATURE GRANULOCYTES-RELATIVE PERCENT (BEAKER) (test qamd=4908) 0 % 0-1 CALCIUM, [id number] 06:38:00* Test Item Value Reference Range Comments CALCIUM IONIZED (BEAKER) (test pvah=991) 1.09 mmol/L 1.12-1.27 PH, BLOOD (BEAKER) (test atgb=5591) 7.47 BASIC METABOLIC [id number] 06:05:00* Test Item Value Reference Range Comments SODIUM (BEAKER) (test jtau=566) 139 meq/L 136-145 POTASSIUM (BEAKER) (test xpjk=267) 4.6 meq/L 3.5-5.1 CHLORIDE (BEAKER) (test ykwu=031) 102 meq/L 98-107 CO2 (BEAKER) (test ovpm=138) 27 meq/L 22-29 BLOOD UREA NITROGEN (BEAKER) (test fgle=927) 47 mg/dL 7-21 CREATININE (BEAKER) (test jxvf=090) 5.17 mg/dL 0.57-1.25 GLUCOSE RANDOM (BEAKER) (test cloi=459) 123 mg/dL 70-105 CALCIUM (BEAKER) (test hhpt=391) 8.8 mg/dL 8.4-10.2 EGFR (BEAKER) (test yhdb=2979) mL/min/1.73 sq m INSUFFICIENT CLINICAL DATA TO CALCULATE ESTIMATED GFR. [id number] 05:55:00* Test Item Value Reference Range Comments PHOSPHORUS (BEAKER) (test voxj=147) 4.7 mg/dL 2.3-4.7 [id number] 05:55:00* Test Item Value Reference Range Comments MAGNESIUM (BEAKER) (test sxcv=576) 1.9 mg/dL 1.6-2.6 PROTHROMBIN [id number] 05:34:00* Test Item Value Reference Range Comments PROTIME (BEAKER) (test epdp=512) 14.2 seconds 11.7-14.7 INR (BEAKER) (test njmt=437) 1.1 <=5.9 RECOMMENDED COUMADIN/WARFARIN INR THERAPY RANGESSTANDARD DOSE: 2.0 - 3.0 Includes: PROPHYLAXIS for venous thrombosis, systemic embolization; TREATMENT for venous thrombosis and/or pulmonary embolus.HIGH RISK: Target INR is 2.5-3.5 for patients with mechanical heart valves.CBC W/PLT COUNT & AUTO [id number] 05:30:00* Test Item Value Reference Range Comments WHITE BLOOD CELL COUNT (BEAKER) (test ooyr=748) 4.3 K/ L 3.5-10.5 RED BLOOD CELL COUNT (BEAKER) (test zmrr=786) 2.54 M/ L 3.93-5.22 HEMOGLOBIN (BEAKER) (test pwef=530) 7.3 GM/DL 11.2-15.7 HEMATOCRIT (BEAKER) (test hzqh=168) 23.4 % 34.1-44.9 MEAN CORPUSCULAR VOLUME (BEAKER) (test scil=464) 92.1 fL 79.4-94.8 MEAN CORPUSCULAR HEMOGLOBIN (BEAKER) (test zknd=272) 28.7 pg 25.6-32.2 MEAN CORPUSCULAR HEMOGLOBIN CONC (BEAKER) (test ggcn=942) 31.2 GM/DL 32.2- 35.5 RED CELL DISTRIBUTION WIDTH (BEAKER) (test nhlf=134) 17.7 % 11.7-14.4 PLATELET COUNT (BEAKER) (test ljri=314) 169 K/CU MM 150-450 MEAN PLATELET VOLUME (BEAKER) (test sdvj=668) 10.7 fL 9.4-12.3 NUCLEATED RED BLOOD CELLS (BEAKER) (test onrp=827) 0 /100 WBC 0-0 NEUTROPHILS RELATIVE PERCENT (BEAKER) (test yrfw=185) 78 % LYMPHOCYTES RELATIVE PERCENT (BEAKER) (test kxnc=125) 14 % MONOCYTES RELATIVE PERCENT (BEAKER) (test ijeu=769) 8 % EOSINOPHILS RELATIVE PERCENT (BEAKER) (test comm=525) 0 % BASOPHILS RELATIVE PERCENT (BEAKER) (test cbpg=305) 1 % NEUTROPHILS ABSOLUTE COUNT (BEAKER) (test sajg=551) 3.31 K/ L 1.56-6.13 LYMPHOCYTES ABSOLUTE COUNT (BEAKER) (test dimt=863) 0.59 K/ L 1.18-3.74 MONOCYTES ABSOLUTE COUNT (BEAKER) (test ipjo=815) 0.33 K/ L 0.24-0.36 EOSINOPHILS ABSOLUTE COUNT (BEAKER) (test xjsx=140) 0.00 K/ L 0.04-0.36 BASOPHILS ABSOLUTE COUNT (BEAKER) (test yqwt=225) 0.02 K/ L 0.01-0.08 IMMATURE GRANULOCYTES-RELATIVE PERCENT (BEAKER) (test iwnp=2435) 1 % 0-1 HEPATITIS B SURFACE [id number] 22:17:00* Test Item Value Reference Range Comments HEPATITIS B SURFACE ANTIGEN (2) (BEAKER) (test krgt=7284) Nonreactive Nonreactive HEMOGLOBIN AND [id number] 10:17:00* Test Item Value Reference Range Comments HEMOGLOBIN (BEAKER) (test vonh=008) 8.7 GM/DL 11.2-15.7 HEMATOCRIT (BEAKER) (test rowi=278) 27.5 % 34.1-44.9 HEMOGLOBIN AND [id number] 08:21:00* Test Item Value Reference Range Comments HEMOGLOBIN (BEAKER) (test hzyu=006) 7.1 GM/DL 11.2-15.7 HEMATOCRIT (BEAKER) (test esry=872) 22.7 % 34.1-44.9 BASIC METABOLIC [id number] 06:00:00* Test Item Value Reference Range Comments SODIUM (BEAKER) (test towi=032) 135 meq/L 136-145 POTASSIUM (BEAKER) (test ttqi=259) 4.8 meq/L 3.5-5.1 CHLORIDE (BEAKER) (test qdoz=490) 97 meq/L 98-107 CO2 (BEAKER) (test rszf=009) 26 meq/L 22-29 BLOOD UREA NITROGEN (BEAKER) (test cwyk=406) 82 mg/dL 7-21 CREATININE (BEAKER) (test fril=245) 7.25 mg/dL 0.57-1.25 GLUCOSE RANDOM (BEAKER) (test aqlf=676) 84 mg/dL 70-105 CALCIUM (BEAKER) (test oagu=452) 8.2 mg/dL 8.4-10.2 EGFR (BEAKER) (test fuej=1189) mL/min/1.73 sq m INSUFFICIENT CLINICAL DATA TO CALCULATE ESTIMATED GFR. CBC (HEMOGRAM ONLY)2017-02-14 05:52:00* Test Item Value Reference Range Comments WHITE BLOOD CELL COUNT (BEAKER) (test xwef=856) 8.1 K/ L 3.5-10.5 RED BLOOD CELL COUNT (BEAKER) (test petw=396) 2.78 M/ L 3.93-5.22 HEMOGLOBIN (BEAKER) (test pbjf=028) 8.0 GM/DL 11.2-15.7 HEMATOCRIT (BEAKER) (test qygp=732) 25.7 % 34.1-44.9 MEAN CORPUSCULAR VOLUME (BEAKER) (test xmfc=073) 92.4 fL 79.4-94.8 MEAN CORPUSCULAR HEMOGLOBIN (BEAKER) (test gglh=486) 28.8 pg 25.6-32.2 MEAN CORPUSCULAR HEMOGLOBIN CONC (BEAKER) (test ojeh=163) 31.1 GM/DL 32.2- 35.5 RED CELL DISTRIBUTION WIDTH (BEAKER) (test ytzq=184) 17.8 % 11.7-14.4 PLATELET COUNT (BEAKER) (test gsbh=033) 187 K/CU MM 150-450 MEAN PLATELET VOLUME (BEAKER) (test ocdr=124) 10.8 fL 9.4-12.3 NUCLEATED RED BLOOD CELLS (BEAKER) (test kzpe=846) 0 /100 WBC 0-0 PROTHROMBIN TIME/[id number] 05:41:00* Test Item Value Reference Range Comments PROTIME (BEAKER) (test iwtx=764) 14.3 seconds 11.7-14.7 INR (BEAKER) (test nfgx=202) 1.1 <=5.9 RECOMMENDED COUMADIN/WARFARIN INR THERAPY RANGESSTANDARD DOSE: 2.0 - 3.0 Includes: PROPHYLAXIS for venous thrombosis, systemic embolization; TREATMENT for venous thrombosis and/or pulmonary embolus.HIGH RISK: Target INR is 2.5-3.5 for patients with mechanical heart valves.CALCIUM, [id number] 05:35:00* Test Item Value Reference Range Comments CALCIUM IONIZED (BEAKER) (test mbno=534) 0.96 mmol/L 1.12-1.27 PH, BLOOD (BEAKER) (test ikhy=5436) 7.39 HEMOGLOBIN AND [id number] 21:46:00* Test Item Value Reference Range Comments HEMOGLOBIN (BEAKER) (test fogw=154) 8.5 GM/DL 11.2-15.7 HEMATOCRIT (BEAKER) (test vphz=091) 27.5 % 34.1-44.9 BASIC METABOLIC [id number] 18:14:00* Test Item Value Reference Range Comments SODIUM (BEAKER) (test inec=105) 137 meq/L 136-145 POTASSIUM (BEAKER) (test tbps=125) 4.7 meq/L 3.5-5.1 CHLORIDE (BEAKER) (test qddz=591) 96 meq/L 98-107 CO2 (BEAKER) (test yute=510) 28 meq/L 22-29 BLOOD UREA NITROGEN (BEAKER) (test abni=075) 72 mg/dL 7-21 CREATININE (BEAKER) (test yput=417) 6.37 mg/dL 0.57-1.25 GLUCOSE RANDOM (BEAKER) (test txxo=324) 88 mg/dL 70-105 CALCIUM (BEAKER) (test xiba=805) 8.5 mg/dL 8.4-10.2 EGFR (BEAKER) (test cnoz=8529) mL/min/1.73 sq m INSUFFICIENT CLINICAL DATA TO CALCULATE ESTIMATED GFR. CBC (HEMOGRAM ONLY)2017-02-13 17:35:00* Test Item Value Reference Range Comments WHITE BLOOD CELL COUNT (BEAKER) (test rlyi=877) 8.3 K/ L 3.5-10.5 RED BLOOD CELL COUNT (BEAKER) (test bixl=346) 2.91 M/ L 3.93-5.22 HEMOGLOBIN (BEAKER) (test nwrw=137) 8.4 GM/DL 11.2-15.7 HEMATOCRIT (BEAKER) (test kkcg=868) 26.6 % 34.1-44.9 MEAN CORPUSCULAR VOLUME (BEAKER) (test ycqm=651) 91.4 fL 79.4-94.8 MEAN CORPUSCULAR HEMOGLOBIN (BEAKER) (test qqbm=953) 28.9 pg 25.6-32.2 MEAN CORPUSCULAR HEMOGLOBIN CONC (BEAKER) (test vayo=018) 31.6 GM/DL 32.2- 35.5 RED CELL DISTRIBUTION WIDTH (BEAKER) (test fidt=085) 17.7 % 11.7-14.4 PLATELET COUNT (BEAKER) (test yfio=553) 184 K/CU MM 150-450 MEAN PLATELET VOLUME (BEAKER) (test nflg=788) 10.6 fL 9.4-12.3 NUCLEATED RED BLOOD CELLS (BEAKER) (test itnb=183) 0 /100 WBC 0-0 G I BLEED [place] [address] Patient Name: JEFF CAI MR #: [id number] : 1945 Age/Sex: 72/F Req #: [id number] Adm Physician: KETTY BEAR MD Ordered by: CHAVO SWAN MD Report #: [id number] Location: MED/SURG2 Room/Bed: 200-1 Procedure: [id number] NM/G I BLEED Exam Date: 02/11/17 Exam Time: 1425 REPORT STATUS: Signed Tagged-RBC GI Bleed Study Clinical information: 72-year-old female with black stools and anemia. Patient notes rectal bleeding intermittently since 05/2016. Patient is on hemodialysis. Both kidneys and the bladder were removed in 06/2016. She was dialyzed immediately prior to this study. Discussion: The patient's own red blood cells were labeled with 24 mCi of technetium-99m pertechnetate using the in vitro method (UltraTag). Dynamic images of the abdomen were obtained through 60 minutes. A small focus of increased tracer appears in the mid abdomen slightly to the right of the IVC at the level of the aortic bifurcation at 12 minutes into the study. This focus slowly intensifies and then moves slightly to the right in a curvilinear pattern at 40 minutes into the study. Impression: Scan evidence of a very small GI bleed in small bowel that originates in the mid abdomen on the right just above the level of the aortic bifurcation. Results were called to Dr. Bernal at 3:50 PM and a message was left for him. Signed by: Dr. Emma Simental M.D. on 02/11 3:53 PM Dictated By: EMMA SIMENTAL MD 52 Transcribed By: TIESHA on 02/11/171552 COPY TO: CHAVO SWAN MD CHEST SINGLE (PORTABLE) [place] [id number] Patient Name: JEFF CAI MR #: [id number] : 1945 Age/Sex: 72/ F Req #: [id number] Adm Physician: Ordered by: SHAYNE GREGG [employer] Report #: [id number] Location: ER Room/Bed: Procedure: [id number] DX/CHEST SINGLE (PORTABLE) Exam Date: Exam Time: REPORT STATUS: Signed PROCEDURE: A single AP view of the chest. COMPARISON: [facility], DX, CHEST SINGLE (PORTABLE), 07/19/2016, 5:55. INDICATIONS: RECTAL BLEEDING FINDINGS: Lines/tubes: Previously visualized right tunneled dialysis catheter has been removed.. Lungs: The lungs are well inflated. Patchy bibasilar opacities, likely reflecting atelectasis. There is no evidence of consolidation. Pleura: There is no pleural effusion or pneumothorax. Rounded density projecting in the right lower lung may represent eventration of the right hemidiaphragm. Heart and mediastinum: Enlarged cardiac silhouette. Minimal central venous congestion. Bones: No acute bony abnormality. Plaster under wires. IMPRESSION : 1. bibasilar atelectasis. 2. Minimal central venous congestion. 3. Rounded density in the right lower lung may represent eventration of the right hemidiaphragm. Recommend chest PA and lateral for further evaluation. Brock Maradiaga M.D. Dictated by: Brock Maradiaga M.D. on 02/09/2017 at 18:55 Electronically approved by: Brock Maradiaga M.D. on 02/09/2017 at 18:55 Dictated By: BROCK MARADIAGA MD 54 Transcribed By: JUN on 02/09/171854 COPY TO: SHAYNE GREGG NP
[2017-08-21] MEDS ORDERED: MORPHINE SULFATE 2 MG/ML SYR IV STA (12:42)
[2017-08-21 12:46] LABS: BASOPHILS # (AUTO) 0.1 (0.0-0.1); BASOPHILS % 0.7 % (0.0-1.0); EOSINOPHILS # (AUTO) 0.2 (0.0-0.4); EOSINOPHILS % 3.4 % (0.0-6.0); HEMATOCRIT 35.2 % (34.2-44.1); HEMOGLOBIN 10.8 g/dL (12.0-16.0); LYMPHOCYTES % 13.6 % (18.0-39.1); MEAN CORPUSCULAR HEMOGLOBIN 29.8 pg (28-32); MEAN CORPUSCULAR HGB CONC 30.7 g/dL (31-35); MONOCYTES # (AUTO) 0.7 (0.2-0.8); MONOCYTES % 9.8 % (4.4-11.3); NEUTROPHILS # (AUTO) 5.1 (2.1-6.9); NEUTROPHILS % 72.2 % (38.7-80.0); PLATELET COUNT 192 x10e3/uL (140-360); RED BLOOD COUNT 3.63 x10e6/uL (3.6-5.1); RED CELL DISTRIBUTION WIDTH 18.1 % (11.7-14.4)
[2017-08-21 12:50] LABS: INR 1.05; PROTHROMBIN TIME 12.9 seconds (11.9-14.5)
[2017-08-21 12:51] LABS: PARTIAL THROMBOPLASTIN TIME 37.1 seconds (23.8-35.5)
[2017-08-21 13:01] LABS: ALBUMIN 3.2 g/dL (3.5-5.0); ALBUMIN/GLOBULIN RATIO 0.7 (0.8-2.0); ANION GAP 18.3 mmol/L (8-16); CALCIUM 9.5 mg/dL (8.4-10.2); CREATININE, SERUM 7.91 mg/dL (0.57-1.11)
[2017-08-21 13:03] LABS: POTASSIUM 5.3 mmol/L (3.5-5.1)
[2017-08-21 13:07] LABS: CREATINE KINASE MB 1.2 ng/mL (0-5.0)
[2017-08-21] MEDS ORDERED: DIATRIZOATE MEGL/DIATRIZOA SOD 30 ML BTL PO ONE (13:20)
[2017-08-21] MEDS ORDERED: ONDANSETRON HCL INJ 2 MG/ML VIAL IV ONE (13:30)
--- NOTE | 2017-08-21 14:25 | Diagnostic Imaging Report ---
EXAM: US GALLBLADDER DATE: 08/21/2017 12:37 PM INDICATION: Pain COMPARISON: 06/17/[address] FINDINGS: Image quality degraded by bowel gas and abdominal scars. Right nephrectomy changes are present. The liver has a lobulated contour. No distinct focal mass identified. Echotexture of the liver is normal. No gallbladder wall thickening or pericholecystic fluid identified. Sonographic Saldivar sign reported as negative. Question tubal echogenic material in the gallbladder neck. Common duct normal at 0.6 cm. Pancreas and aorta are largely obscured by bowel gas. IMPRESSION: 1. Right nephrectomy changes. 2. Questionable sludge or small stones gallbladder neck. No sonographic evidence of cholecystitis, however. 3. Lobular contour of the liver raises question of cirrhotic morphology; however, no distinct nodularity identified on 06/17/2016 CT. Signed by: Dr. Jose Herzog MD on 08/21/2017 2:21 PM
--- NOTE | 2017-08-21 14:58 | Diagnostic Imaging Report ---
EXAM: CT Abdomen and Pelvis WITHOUT contrast INDICATION: Pain. History of gallstones. COMPARISON: Same day ultrasound. TECHNIQUE: Abdomen and Pelvis was scanned utilizing a multidetector helical scanner without the use of IV contrast. Coronal and sagittal reformations were obtained. IV CONTRAST: None COMPLICATIONS: None RADIATION DOSE: Total DLP: 456 mGy*cm Estimated effective dose: (DLP x 0.015 x size factor) mSv CTDIvol has been reviewed. It is below the limits set by the Radiation Protocol Committee (RPC). FINDINGS: Abdomen: Lung Bases: Atelectasis. Cardiomegaly. Mitral annular calcifications. Solid Organs: Gallbladder is mildly distended. Bilateral nephrectomy changes present. Nonenhanced images of liver, adrenals, spleen, and pancreas grossly unremarkable. Upper GI Tract: Stomach is decompressed, limiting adequate evaluation. No small bowel obstructive changes. Vascularity: Advanced aortic vascular calcifications. Aortobiiliac stent present. Patency not assessed due to lack of IV contrast. Excluded aneurysm 60 mm. Mesenteric vascular calcifications. Lymph Nodes: Lack of IV contrast limits evaluation. Other: Mild haziness of mesentery. Small ventral hernia inferiorly. Pelvis: Bladder: Not distinctly visualized, presumably completely decompressed. Other: Numerous surgical clips in the pelvis. Cystectomy changes possible. Colon: Significant wall thickening and pericolonic stranding descending colon and sigmoid colon. Moderate stool transverse colon. Partial right hemicolectomy changes noted. Bones: Degenerative changes. IMPRESSION: 1. Colonic wall thickening and pericolonic stranding descending and sigmoid colon suggesting infectious/inflammatory colitis. 2. Post surgical changes as above. 3. Aortic aneurysm with aortobiiliac stent. 4. See above for full details. Signed by: Dr. Jose Herzog MD on 08/21/2017 2:54 PM
[2017-08-21] MEDS ORDERED: ALBUTEROL SULF 0.083% NEB SOLN 3 ML NEB NEB STA (15:18)
[2017-08-21] MEDS ORDERED: DEXTROSE 50% SYRINGE 50 ML IV PRN (15:30)
[2017-08-21] MEDS ORDERED: LACTULOSE SYRUP 20 GM/30 ML UDC PO ONE (15:30)
[2017-08-21] MEDS ORDERED: IPRATROPIUM BROMIDE 0.02% 2.5 ML NEB NEB ONE (15:30)
[2017-08-21] MEDS ORDERED: PLAVIX75 MG PO (15:32)
[2017-08-21] MEDS ORDERED: LEVOTHYROXINE50 MCG PO (15:32)
[2017-08-21] MEDS: INSULIN REGULAR, HUMAN 100 UNIT/1 ML 3ML VIAL SQ SCH ×2 (16:30→20:20)
[2017-08-21] MEDS ORDERED: PIPER-TAZ 3.375 GM/50 ML BAG IV ONE (16:30)
[2017-08-21] MEDS: MORPHINE SULFATE 2 MG/ML SYR IV PRN (17:55)
[2017-08-21] MEDS: ONDANSETRON HCL INJ 2 MG/ML VIAL IV PRN (17:55)
[2017-08-21 18:04] VITALS: BP 116/59
[2017-08-21] MEDS ORDERED: ASPIR 8181 MG PO (18:10)
[2017-08-21 19:30] VITALS: BP 104/52
[2017-08-21] MEDS: LACTULOSE SYRUP 20 GM/30 ML UDC PO SCH (21:34)
[2017-08-22] VITALS (7 sets, daily range): BP systolic 94–115; BP diastolic 47–56
[2017-08-22] MEDS: ONDANSETRON HCL INJ 2 MG/ML VIAL IV PRN (03:30)
[2017-08-22] MEDS: MORPHINE SULFATE 2 MG/ML SYR IV PRN (03:30)
[2017-08-22] MEDS: LACTULOSE SYRUP 20 GM/30 ML UDC PO SCH ×3 (05:44→21:29)
[2017-08-22 06:44] LABS: BASOPHILS # (AUTO) 0.1 (0.0-0.1); BASOPHILS % 0.5 % (0.0-1.0); EOSINOPHILS # (AUTO) 0.2 (0.0-0.4); EOSINOPHILS % 1.5 % (0.0-6.0); HEMATOCRIT 30.5 % (34.2-44.1); HEMOGLOBIN 9.4 g/dL (12.0-16.0); LYMPHOCYTES # (AUTO) 0.8 (1.0-3.2); LYMPHOCYTES % 7.4 % (18.0-39.1); MEAN CORPUSCULAR HEMOGLOBIN 30.4 pg (28-32); MEAN CORPUSCULAR HGB CONC 30.8 g/dL (31-35); MEAN CORPUSCULAR VOLUME 98.7 fL (81-99); MONOCYTES % 8.9 % (4.4-11.3); NEUTROPHILS # (AUTO) 8.7 (2.1-6.9); NEUTROPHILS % 81.4 % (38.7-80.0); PLATELET COUNT 174 x10e3/uL (140-360); RED BLOOD COUNT 3.09 x10e6/uL (3.6-5.1); RED CELL DISTRIBUTION WIDTH 18.2 % (11.7-14.4)
[2017-08-22 07:05] LABS: ALBUMIN 2.8 g/dL (3.5-5.0); ALBUMIN/GLOBULIN RATIO 0.8 (0.8-2.0); CALCIUM 8.6 mg/dL (8.4-10.2); CREATININE, SERUM 8.84 mg/dL (0.57-1.11)
[2017-08-22] MEDS: INSULIN REGULAR, HUMAN 100 UNIT/1 ML 3ML VIAL SQ SCH ×4 (07:30→21:00)
[2017-08-22] MEDS ORDERED: DEXTROSE 50% SYRINGE 50 ML IV STA (09:23)
[2017-08-22] MEDS ORDERED: INSULIN REGULAR, HUMAN 100 UNIT/1 ML 3ML VIAL SQ ONE (09:50)
[2017-08-22] MEDS: VANCOMYCIN 250MG/5ML ORAL SOLN PO SCH ×3 (09:58→21:29)
[2017-08-22] MEDS ORDERED: MANNITOL 25% 12.5GM/50 ML VIAL IV PRN (10:00)
[2017-08-22] MEDS ORDERED: ALBUMIN HUMAN 50 ML IV PRN (10:00)
[2017-08-22] MEDS ORDERED: SODIUM CHLORIDE 0.9% 1000ML 2,000 ML ONE (10:53)
--- NOTE | 2017-08-22 10:58 | Consultation ---
DATE OF CONSULTATION: August 22, 2017 Ms. Soumya Jones is well known to me. A 72-year-old female with underlying history of type 2 diabetes, end-organ damage, end-stage renal disease, history of inflammatory bowel disease, ulcerative colitis, history of hypothyroidism, hyperlipidemia, congestive heart failure, admitted with abdominal pain, history of recent GI bleed, history of prior nephrectomy, bladder resection, urostomy placement, prior coronary artery bypass surgery, history of ablation for SVT and aneurysmal repair, currently sitting up. Still has some abdominal discomfort, but no pain. No nausea, vomiting or diarrhea. No blood cultures have been done. No urine culture has been done. She is anuric as a matter of fact. White count is 10.66, hemoglobin 9.4. Potassium 6, BUN and creatinine 65 and 8.8. BNP 195.4. Total bili of 1 with alkaline phosphatase, AST and ALT normal range. Had abdominal CT of pelvis and shows colonic wall thickening with pericolonic stranding in descending sigmoid colon, infectious inflammatory colitis with aortic aneurysm with aortoiliac stent. ALLERGIES: CLONIDINE PATCH, SURGICAL TAPE, SULFA, AMLODIPINE, CLONIDINE, AND NIFEDIPINE. CURRENT MEDICATIONS 1. He is on Zofran p.r.n. 2. Albuterol. 3. Insulin. 4. Lactulose. 5. Thyroid medication has not been renewed. PHYSICAL EXAMINATION GENERAL: Awake, alert and sitting up in no apparent distress. VITALS: Blood pressure of 115/55, pulse rate 80, afebrile, oxygen saturation 94%. HEAD AND NECK: Corneae clear. Oral mucosa is dry. LUNGS: Bibasilar rales. HEART: S1 and S2 audible. ABDOMEN: Otherwise soft. Surgical incision scars. SOCIAL HISTORY: Does not smoke or drink. FAMILY HISTORY: Type 2 diabetes. PLAN: Arranging for dialysis. Treat hyperkalemia immediately with dextrose, insulin and calcium. Dialysis nurse on her way to dialysis. She should be here within the next 20 minutes. Will start p.o. vancomycin. Send stool for C. diff. Discussed with RN. Job#: [id number] SD
[2017-08-22] MEDS ORDERED: LEVOFLOXACIN 250 MG TAB PO SCH (14:45)
--- NOTE | 2017-08-22 15:05 | History and Physical ---
Patient came in with complaint of abdominal pain. HISTORY: The patient is a 72-year-old female with a history of nephrectomy, end-stage renal disease on dialysis. Patient came in with abdominal pain, diffuse and no radiation. No nausea or vomiting. The patient stated that the pain came on suddenly. She did not have any diet changes. No history of traveling. She did have some nausea, but much improved. The patient is otherwise stable. No diarrhea. No constipation. PAST MEDICAL HISTORY: End-stage renal disease, on dialysis, gallstones, coronary disease with history of previous coronary artery bypass surgery, dialysis abscess, urinary bladder surgery, aortic valve replacement, history of recurrent upper GI bleed, nephrectomy, history of ulcerative colitis, hypothyroidism, hyperlipidemia, congestive heart failure, history of ablation for SVT, aneurysm repair. SOCIAL HISTORY: Patient does not smoke or use alcohol. No regular drugs. ALLERGIES: CLONIDINE PATCH, SURGICAL TAPE, SULFA, NORVASC, CLONIDINE, AND NIFEDIPINE. HOME MEDICATIONS: List is reviewed. REVIEW OF SYSTEMS: Abdominal pain, improving. Some nausea but no vomiting. PHYSICAL EXAMINATION VITAL SIGNS: Temperature is 98, blood pressure 115/55, pulse rate 80, respirations 18. GENERAL: The patient is not in acute distress. She is awake. HEENT: Normocephalic and atraumatic. Sclera anicteric. NECK: Supple grossly. PULMONARY: Diminished breath sounds without any wheeze. CARDIOVASCULAR: S1 and S2. Regular rate and rhythm. ABDOMEN: Tenderness but no guarding or rebound. EXTREMITIES: No cyanosis or edema. NEUROLOGIC: No focal deficit. LABORATORY: Sodium is 136, potassium 6, chloride 93, bicarb 20, BUN 65, creatinine 8.8, glucose 85. WBC is 10.6, hemoglobin 9.4, hematocrit 30.5, and platelets is 174,000. IMPRESSION 1. Hyperkalemia. 2. Abdominal pain. PLAN: The patient had multiple imaging tests. CT scan of the abdomen and pelvis is done. Ultrasound is done. Will review. The patient is otherwise stable at this time. Job#: [id number] KAILEY
[2017-08-22] MEDS ORDERED: MORPHINE SULFATE 2 MG/ML SYR IV PRN (15:30)
[2017-08-22] MEDS: METRONIDAZOLE 250 MG TAB PO SCH ×2 (17:00→21:28)
[2017-08-22] MEDS ORDERED: ASPIRIN 81 MG CHEW TAB PO SCH (21:00)
[2017-08-23] VITALS: BP 124/58
[2017-08-23 04:00] VITALS: BP 102/50
[2017-08-23] MEDS: VANCOMYCIN 250MG/5ML ORAL SOLN PO SCH (05:46)
[2017-08-23] MEDS: LACTULOSE SYRUP 20 GM/30 ML UDC PO SCH (05:46)
[2017-08-23] MEDS ORDERED: LEVOTHYROXINE SODIUM 100 MCG TAB PO SCH (06:00)
[2017-08-23 06:57] LABS: ALBUMIN 2.5 g/dL (3.5-5.0); ALBUMIN/GLOBULIN RATIO 0.6 (0.8-2.0); ALKALINE PHOSPHATASE 109 IU/L (40-150); ANION GAP 15.1 mmol/L (8-16); BLOOD UREA NITROGEN 29 mg/dL (7-26); BUN/CREATININE RATIO 6 (6-25); CALCIUM 8.9 mg/dL (8.4-10.2); CARBON DIOXIDE 27 mmol/L (22-29); CHLORIDE 104 mmol/L (98-107); CREATININE, SERUM 5.27 mg/dL (0.57-1.11); EST GLOMERULAR FILTRATION RATE 8 ML/MIN (60-); GLUCOSE 89 mg/dL (74-118); POTASSIUM 5.1 mmol/L (3.5-5.1); SODIUM 141 mmol/L (136-145)
[2017-08-23 06:59] LABS: ALANINE AMINOTRANSFERASE < 6 IU/L (0-55)
[2017-08-23] MEDS: INSULIN REGULAR, HUMAN 100 UNIT/1 ML 3ML VIAL SQ SCH ×2 (07:30→11:30)
[2017-08-23 08:00] VITALS: BP 114/57
[2017-08-23] MEDS: METRONIDAZOLE 250 MG TAB PO SCH (08:30)
[2017-08-23] MEDS ORDERED: CLOPIDOGREL BISULFATE 75 MG TAB PO SCH (09:00)
[2017-08-23] MEDS ORDERED: LEVOTHYROXINE SODIUM 50 MCG TAB PO SCH (09:00)
[2017-08-23] MEDS ORDERED: AMIODARONE HCL 200 MG TAB PO SCH (09:00)
[2017-08-23 09:45] VITALS: BP 114/57
[2017-08-23 12:00] VITALS: BP 106/56
== END 2017-08-23 13:35 | disposition home or self-care (01) | DRG 640 ==
LOC: ER 11:22 → ERHOLD 16:09 → MED/SURG2 16:11
PROVIDERS: ADMIT Internal Medicine; ATTEND Internal Medicine
PROC: 5A1D70Z Performance of Urinary Filtration, Intermittent, Less than 6 Hours Per Day (ICD-10-PCS; principal; 2017-08-22)
DX: E87.5 Hyperkalemia (principal); N18.6 End stage renal disease; I13.2 Hypertensive heart and chronic kidney disease with heart failure and with stage 5 chronic kidney disease, or end stage renal disease; K51.50 Left sided colitis without complications; E11.22 Type 2 diabetes mellitus with diabetic chronic kidney disease; Z99.2 Dependence on renal dialysis; Z79.4 Long term (current) use of insulin; I50.9 Heart failure, unspecified; E03.9 Hypothyroidism, unspecified; E78.5 Hyperlipidemia, unspecified; Z90.5 Acquired absence of kidney; I25.10 Atherosclerotic heart disease of native coronary artery without angina pectoris; Z95.1 Presence of aortocoronary bypass graft; Z95.2 Presence of prosthetic heart valve; Z28.21 Immunization not carried out because of patient refusal; Z79.82 Long term (current) use of aspirin; Z79.02 Long term (current) use of antithrombotics/antiplatelets; Z88.8 Allergy status to other drugs, medicaments and biological substances; Z88.2 Allergy status to sulfonamides; Z91.048 Other nonmedicinal substance allergy status
CPT/HCPCS: 36415; 74176; 76705; 80053; 82150; 82550; 82553; 82948; 83690; 83880; 84484; 85025; 85610; 85730; 87340; 90962; 93005; 99285; J2270; J2405; J2543; J7030; J7799

== ENCOUNTER 2017-09-12 07:49 | Emergency (ER) | payer OTHER ==
[~2017-09-12] VITALS: Ht 309.9 cm; Wt 71.7 kg
[~2017-09-12 07:49] MED LIST changes: +LEVOTHYROXINE50 MCG PO; +PLAVIX75 MG PO
--- OUTSIDE RECORDS SUMMARY | 2017-09-12 07:52 | XMS REPORT | Clinical Summary ---
Author Author CLAUDIA [facility] Address Unknown Phone Unavailable Care Team Providers Care Ms Sql Dba Name Role Phone PCP Unavailable Allergies Active Allergy Reactions Severity Noted Date Comments Amoxicillin-Pot Itching 03/24/2017 Clavulanate Clonidine 02/13/2017 Pt unsure of reaction Amlodipine 02/13/2017 Pt states became confused Adhesive Tape 02/13/2017 Pt states gets red, starts itching, states is okay with paper tape Metronidazole Rash Low 03/24/2017 Vaginal insert cream made her itch with a rash Sulfa (Sulfonamide Rash Low 02/13/2017 Pt states broke out in Antibiotics) rash Current Medications Prescription Sig. Disp. Refills Start End Date Status Date levothyroxine (SYNTHROID, Take 175 mcg by mouth Active LEVOTHROID) 175 MCG every morning before tablet breakfast. amiodarone (PACERONE) 100 Take 100 mg by mouth Active MG tablet daily. pravastatin (PRAVACHOL) Take 40 mg by mouth Active 40 MG tablet daily. midodrine (PROAMATINE) 5 Take 5 mg by mouth once Active MG tabletIndications: as needed (taken before taken before diaylsis diaylsis). clopidogrel (PLAVIX) 75 Take 1 tablet (75 mg 90 tablet 3 03/26/20 Active mg tablet total) by mouth daily. 17 18 aspirin 81 MG EC tablet Take 1 tablet (81 mg 30 tablet 11 03/25/20 03/25/20 Active total) by mouth daily. 17 18 warfarin (COUMADIN) 2.5 Take 2.5 mg by mouth 02/24/20 Discontin MG tablet daily. 17 ued aspirin 81 MG EC tablet Take 81 mg by mouth 02/24/20 Discontin daily. 17 ued cephalexin (KEFLEX) 500 Take 500 mg by mouth 3 02/24/20 Discontin MG capsuleIndications: to (three) times daily. 17 ued be completed on 02/15/17 Active Problems Problem Noted Date Aortic valve stenosis, etiology of cardiac valve disease unspecified 2016 Aortic stenosis 03/23/2017 Obesity 02/23/2017 GI bleed 02/13/2017 HTN (hypertension) ESRD (end stage renal disease) ([facility]) Chronic a-fib ([facility]) Aortic valvar stenosis Anemia CAD (coronary artery disease) Bladder cancer ([facility]) Hypothyroidism Encounters Date Type Specialty Care Team Description 03/24/2017 [facility] Card[facility] Mihai Howard, Nonrheumatic aortic valve - Encounter MD stenosis 03/25/2017 03/24/2017 Anesthesia Shahram Velásquez, AA Event 03/24/2017 Procedure Pass 03/24/2017 Surgery Mihai Howard, TAVR / HA MCR - IP MD PROC ONLY 03/22/2017 [facility] Mihai Howard, Aortic valve stenosis, Encounter MD etiology of cardiac valve disease unspecified 03/22/2017 Orders Only General Internal Medicine 02/25/2017 Documentation Nephrology Maya Gamez MD 02/16/2017 Procedure Pass 02/16/2017 Surgery Travis Hoyt MD L CATH & CORONARY ANGIOS 02/15/2017 Procedure Pass Gastroenterology 02/14/2017 Anesthesia Gastroenterology Dale Lam, Event ASPHALT SMOOTHER 02/14/2017 Procedure Pass Gastroenterology 02/14/2017 Surgery Gastroenterology Amita Jacosbon ENTEROSCOPY, SALVADOR Lucas MD OVERTUBE SMALL INTESTINE-UPPER 02/13/2017 [facility] Cardiology Dank Quiroz MD Gastrointestinal - Encounter Tiffany Duque-D hemorrhage, unspecified 02/23/2017 Migel Dolan, gastrointestinal hemorrhage type;Tobi Escamilla MD (shortness of breath);AF (paroxysmal atrial fibrillation) ([facility]);Secondary hypertension;ESRD (end stage renal disease) ([facility]);Hypothyroidism, unspecified type;Hyperlipidemia, unspecified hyperlipidemia type;ESRD (end stage renal disease) on dialysis ([facility]);Essential hypertension;Nonrheumatic aortic valve stenosis;Non-rheumatic mitral regurgitation 02/11/2017 Orders Only Internal Medicine Dank Quiroz MD after 09/11/2016 Social History Tobacco Use Types Packs/Day Years Used Date Former Smoker Quit: 05/30/1998 Smokeless Tobacco: Never Used Alcohol Use Drinks/Week oz/Week Comments No Sex Assigned at Date Recorded Not on file Last Filed Vital Signs Vital Sign Reading Time Taken Blood Pressure 104/39 03/24/2017 3:45 PM CDT Pulse 69 03/25/2017 3:00 PM CDT Temperature 37 C (98.6 F) 03/25/2017 3:00 PM CDT Respiratory Rate 14 03/25/2017 3:00 PM CDT Oxygen Saturation 92% 03/25/2017 3:00 PM CDT Inhaled Oxygen - - Concentration Weight 69.2 kg (152 lb 8.9 oz) 03/25/2017 6:00 AM CDT Height 157.5 cm (5' 2") 03/24/2017 7:58 AM CDT Body Mass Index 27.9 03/25/2017 6:00 AM CDT Plan of Treatment Not on file Implants Implanted Type Area Real Estate Professional Device Expiration Model / Identifier Date Serial / Lot Device Clsr Angio-Seal Vip 6fr Cardiovasc Left: [employer] GILMAR 12/27/2017 [id number] / [id number] - [id number] ultony Beckwith MED:CARDIAC / Implanted: Qty: 1 on 03/24/2017 by SURG [id number] Mihai Howard MD Closure Sys Perclose Progl 6fr Cardiovasc Right: [place] [facility]:VASC [id number] / [id number] - [id number] isabella Beckwith DEV / Implanted: Qty: 2 on 03/24/2017 by [id number] Mihai Howard MD Device Clsr Angio-Seal Vip 6fr Cardiovasc Right: [employer] 02/27/2020 [id number] / [id number] - [id number] isabella Beckwith MED:CARDIAC / Implanted: Qty: 1 on 03/24/2017 by SURG [id number] Mihai Howard MD Valve Aortic 26 [id number] - Valves [employer]:STRUC 11/03/2019 EVOLUTR-26 [id number] TURAL HEART -US / Implanted: Qty: 1 on 03/24/2017 by [id number] / Mihai Howard MD Procedures Procedure Name Priority Date/Time Associated Diagnosis Comments TAVR / HA MCR - IP 03/24/2017 Aortic valve stenosis, PROC ONLY 11:18 AM CDT etiology of cardiac valve disease unspecified Case Notes POP6 ANGEL GUIDED (W/ANESTH) . 321mGy L CATH & CORONARY ANGIOS 02/16/2017 Encounter for 4:36 PM CDT pre-operative examination Case Notes 1546 Special Needs Ok by Sushant ENTEROSCOPY,BALLOON 02/14/2017 GI BLEED OVERTUBE SMALL 2:00 PM CDT INTESTINE-UPPER Case Notes ENTEROSCOP Y, BALLOON OVERTUBE SMALL INTESTINE- UPPER WITH ANES Special Needs ENTEROSCOP Y, BALLOON OVERTUBE SMALL INTESTINE- UPPER WITH ANES after 09/11/2016 Results * ECHOCARDIOGRAM REPORT - SCAN (03/31/2017 10:50 AM) Only the most recent of 4 results within the time period is included. * RHYTHM STRIP - SCAN (03/28/2017 12:50 PM) Only the most recent of 4 results within the time period is included. * CARDIAC CATH REPORT - SCAN (03/25/2017 9:50 PM) Only the most recent of 2 results within the time period is included. * TRANSFUSION SERVICE REPORT - SCAN (03/25/2017 5:42 PM) Only the most recent of 5 results within the time period is included. * 2D Echo W/Doppler(CW/PW/Color) (03/25/2017 11:05 AM) Only the most recent of 2 results within the time period is included. Component Value Ref Range Ejection Fraction Specimen Performing Laboratory [facility] ECHO HEARTLAB MKCKESSON CPACS Narrative Transthoracic Echocardiography Report (TTE) Demographics Patient Name Javid JONES of Study 03/25/2017 BLEYL [id number] Female Visit Number [id number] Unknown [id number] Room Number 6217 Number Date of Birth1945Referring Physician Anita Jerome Age72 year(s)Cream Dipper Emeli Rizvi, [facility] AnalystAlex Jeremiah Interpreting Zaire Chery MD Physician Procedure Type of Study TTE procedure:2DECHO W DOPPLER(CW/PW/COLOR) (Routine) Indications:Initial post operative evaluation of prosthetic valve. Clinical History HGB 9.7 HCT 32.1 % AbdAoAneurysm. , A-fib, ESRD, HTN, [place], CAD s/p ABC x 3 (2009) s/p Bilateral nephrectomy s/p TAVR/HA (03/24/2017, Evolut Pro #26) Height: 62 inches Weight: 68.95 kg (152 lbs) BSA: 1.7 m^2 BMI: 27.8 kg/m^2 HR: 69 bpm BP: 149/60 mmHg Summary 1. Severely enlarged LV. The LV function appears mildly depressed. LVEF is 40-44%. Severe hypokinesis noted in the inferior wall. 2. Diastology: Unable to comment due to sever mitral regurgitation. 3. S/p TAVR. Pk / Mn: 18.3 / 7 mm Hg. 4. Severe mitral regurgitation 5. Moderate to severe tricuspid regurgitation. Estimated RVSP 70-75 mm Hg. 6. When compared with previous study, the patient is s/p TAVR. Signature Findings Technical Quality: Technically adequate exam. Left Ventricle No evidence of LV hypertrophy. The following segment(s) appear severely hypokinetic: inferior . The other segments contract normally. Global LV systolic functionis mildly depressed.. Estimated LVEF by qualitative assessment is normal (50-54) . The left ventricle is chamber size (by vol index) is severely enlarged (female - LVED vol >80ml/m2). LV diastolic function is indeterminate. Left AtriumLA size is severely enlarged . Right VentricleRV chamber size is moderately enlarged . Global RV systolic function is depressed. Right Atrium RA size is severely dilated. Aortic Valve A Karli percutaneous (TAVR) biologic AoV prosthesis is visualized . The prosthetic AoV appears well- seated with normal function by Doppler. Mitral Valve Mild MV leaflet thickening. Mild mitral annular calcification. Severe mitral regurgitation. Tricuspid ValveModerate to severe tricuspid regurgitation (3+). Estimated peak systolic PA pressure is 70-75 mmHg . Pulmonic Valve Normal PV structure and function by limited views and Doppler. PericardiumNo evidence of pericardial effusion. IVC/SVC/PA/PV/PleuralThe estimated RA pressure by IVC dynamics 16-20mmHg . Chambers/Structures Left Atrium LA Dimension: 4.67 cmLA Area: 35.82 cm^2 LA Volume: 139.3 ml LA Vol. Index: 82 ml/m^2 Left Ventricle LVIDd: 5.27 cm LVEDV 2D:133.55 ml LV Septum Diastolic: 1.02 cm LV PW Diastolic: 1.14 cm LVEDV BP Hoyt's:199 ml LVESV BP Hoyt's:111 ml LVEF BP Hoyt's: 44 % Aorta Ao Root S of Lu.: 2.57 cm Doppler/Quantitative Measurements LVOT Peak Velocity: 1.01 m/s Peak Gradient: 4.08 mmHg Mean Velocity: 0.61 m/s Mean Gradient: 1.86 mmHg LVOT VTI: 16.71 cm Procedure Note Interface, External Ris In - 03/25/2017 2:31 PM CDT Transthoracic Echocardiography Report (TTE) Demographics Patient Name SOUMYA JONES Date of Study 03/25/2017 JAMIE Gender Female Visit Number [id number] Race Unknown Room Number 6217 Number Date of 1945 Referring Physician Anita Jerome Age 72 year(s) Cream Dipper Emeli Rizvi RDCS Bottle Packer Yves Daniels Interpreting Zaire Chery MD Physician Procedure Type of Study TTE procedure:2DECHO W DOPPLER(CW/PW/COLOR) (Routine) Indications:Initial post operative evaluation of prosthetic valve. Clinical History HGB 9.7 HCT 32.1 % AbdAoAneurysm. , A-fib, ESRD, HTN, [place], CAD s/p ABC x 3 (2009) s/p Bilateral nephrectomy s/p TAVR/HA (03/24/2017, Evolut Pro #26) Height: 62 inches Weight: 68.95 kg (152 lbs) BSA: 1.7 m^2 BMI: 27.8 kg/m^2 HR: 69 bpm BP: 149/60 mmHg Summary 1. Severely enlarged LV. The LV function appears mildly depressed. LVEF is 40-44%. Severe hypokinesis noted in the inferior wall. 2. Diastology: Unable to comment due to sever mitral regurgitation. 3. S/p TAVR. Pk / Mn: 18.3 / 7 mm Hg. 4. Severe mitral regurgitation 5. Moderate to severe tricuspid regurgitation. Estimated RVSP 70-75 mm Hg. 6. When compared with previous study, the patient is s/p TAVR. Signature Findings Technical Quality: Technically adequate exam. Left Ventricle No evidence of LV hypertrophy. The following segment(s) appear severely hypokinetic: inferior . The other segments contract normally. Global LV systolic functionis mildly depressed.. Estimated LVEF by qualitative assessment is normal (50-54) . The left ventricle is chamber size (by vol index) is severely enlarged (female - LVED vol >80ml/m2). LV diastolic function is indeterminate. Left Atrium LA size is severely enlarged . Right Ventricle RV chamber size is moderately enlarged . Global RV systolic function is depressed. Right Atrium RA size is severely dilated. Aortic Valve A Karli percutaneous (TAVR) biologic AoV prosthesis is visualized . The prosthetic AoV appears well-seated with normal function by Doppler. Mitral Valve Mild MV leaflet thickening. Mild mitral annular calcification. Severe mitral regurgitation. Tricuspid Valve Moderate to severe tricuspid regurgitation (3+). Estimated peak systolic PA pressure is 70-75 mmHg . Pulmonic Valve Normal PV structure and function by limited views and Doppler. Pericardium No evidence of pericardial effusion. IVC/SVC/PA/PV/Pleural The estimated RA pressure by IVC dynamics 16-20mmHg . Chambers/Structures Left Atrium LA Dimension: 4.67 cm LA Area: 35.82 cm^2 LA Volume: 139.3 ml LA Vol. Index: 82 ml/m^2 Left Ventricle LVIDd: 5.27 cm LVEDV 2D:133.55 ml LV Septum Diastolic: 1.02 cm LV PW Diastolic: 1.14 cm LVEDV BP Hoyt's:199 ml LVESV BP Hoyt's:111 ml LVEF BP Hoyt's: 44 % Aorta Ao Root S of Lu.: 2.57 cm Doppler/Quantitative Measurements LVOT Peak Velocity: 1.01 m/s Peak Gradient: 4.08 mmHg Mean Velocity: 0.61 m/s Mean Gradient: 1.86 mmHg LVOT VTI: 16.71 cm * Hepatitis B surface antigen (03/25/2017 7:35 AM) Only the most recent of 2 results within the time period is included. Component Value Ref Range hepatitis B Surface Ag Nonreactive Nonreactive Specimen Performing Laboratory Blood - Arm, [place] [address] * CBC with platelet count + automated diff (03/25/2017 3:56 AM) Only the most recent of 11 results within the time period is included. Component Value Ref Range WBC 5.1 3.5 - 10.5 K/ L RBC 3.23 (L) 3.93 - 5.22 M/ L Hemoglobin 9.7 (L) 11.2 - 15.7 GM/DL Hematocrit 32.1 (L) 34.1 - 44.9 % MCV 99.4 (H) 79.4 - 94.8 fL MCH 30.0 25.6 - 32.2 pg MCHC 30.2 (L) 32.2 - 35.5 GM/DL RDW 18.3 (H) 11.7 - 14.4 % Platelets 92 (L) 150 - 450 K/CU MM MPV 11.5 9.4 - 12.3 fL nRBC 0 0 - 0 /100 WBC % Neutros 64 % % Lymphs 18 % % Monos 10 % % Eos 7 % % Baso 1 % # Neutros 3.27 1.56 - 6.13 K/ L # Lymphs 0.89 (L) 1.18 - 3.74 K/ L # Monos 0.48 (H) 0.24 - 0.36 K/ L # Eos 0.36 0.04 - 0.36 K/ L # Baso 0.06 0.01 - 0.08 K/ L Immature 0 0 - 1 % Granulocytes-Relative Specimen Performing Laboratory Blood [address] [address] * Daily Prothrombin time/INR while on warfarin (03/25/2017 3:56 AM) Only the most recent of 5 results within the time period is included. Component Value Ref Range Protime 15.6 (H) 11.7 - 14.7 seconds INR 1.3 <=5.9 Specimen Performing Laboratory Blood [address] [address] Narrative RECOMMENDED COUMADIN/WARFARIN INR THERAPY RANGES STANDARD DOSE: 2.0 - 3.0 Includes: PROPHYLAXIS for venous thrombosis, systemic embolization; TREATMENT for venous thrombosis and/or pulmonary embolus. HIGH RISK: Target INR is 2.5-3.5 for patients with mechanical heart valves. While on warfarin. * CBC with platelet count + automated diff (03/25/2017 3:56 AM) Only the most recent of 11 results within the time period is included. Specimen Performing Laboratory Blood Narrative The following orders were created for panel order CBC with platelet count + automated diff. Procedure Abnormality Status --------- - ------ CBC with platelet count ...[[id number]]AbnormalFinal result Please view results for these tests on the individual orders. * Basic Metabolic Panel (03/25/2017 3:56 AM) Only the most recent of 13 results within the time period is included. Component Value Ref Range Sodium 135 (L) 136 - 145 meq/L Potassium 5.5 (H) 3.5 - 5.1 meq/L Chloride 102 98 - 107 meq/L CO2 22 22 - 29 meq/L BUN 49 (H) 7 - 21 mg/dL Creatinine 7.52 (H) 0.57 - 1.25 mg/dL Glucose 74 70 - 105 mg/dL Calcium 8.1 (L) 8.4 - 10.2 mg/dL EGFR 5Comment: ESTIMATED GFR IS NOT ACCURATE mL/min/1.73 sq m CREATININE CLEARANCE IN PREDICTING GLOMERULAR FILTRATION RATE. ESTIMATED GFR IS NOT APPLICABLE FOR DIALYSIS PATIENTS. Specimen Performing Laboratory Blood [address] [address] * Prepare Leuko-Red RBC (03/24/2017 2:39 PM) Only the most recent of 3 results within the time period is included. Component Value Ref Range CROSSMATCH COMPATIBLE Unit ABO A Pos UNIT NUMBER [id number] Status RETURNED FROM ISSUE Blood Bank Product RED BLOOD CELLS PRODUCT CODE F0302K48 CROSSMATCH COMPATIBLE Unit ABO A Pos UNIT NUMBER [id number] Status RETURNED FROM ISSUE Blood Bank Product RED BLOOD CELLS PRODUCT CODE F1102G56 CROSSMATCH COMPATIBLE Unit ABO A Pos UNIT NUMBER [id number] Status RETURNED FROM ISSUE Blood Bank Product RED BLOOD CELLS PRODUCT CODE R6802O24 CROSSMATCH COMPATIBLE Unit ABO A Pos UNIT NUMBER [id number] Status RETURNED FROM ISSUE Blood Bank Product RED BLOOD CELLS PRODUCT CODE [id number] Specimen Performing Laboratory Other [place] * POC ACTIVATED CLOTTING TIME (03/24/2017 1:45 PM) Only the most recent of 3 results within the time period is included. Component Value Ref Range Activated Clotting Time 136Comment: TESTED AT [address] [address] Specimen Performing Laboratory Blood [address] [address] * Transesophageal echo (03/24/2017 11:44 AM) Only the most recent of 2 results within the time period is included. Component Value Ref Range Ejection Fraction Specimen Performing Laboratory [facility] ECHO HEARTLAB MKCKESSON [facility] Narrative Transesophageal Echocardiography Report (ANGEL) Demographics Patient NameSOUMYA JONES Date of Study03/24/2017 BLEYL Gender Female Visit [id number] Race Unknown [id number] Number Date of 1945 Referring Physician Age 72 year(s) Cream Dipper Maria Luisa Dias [facility] Interpreting [facility] Needs to be Pre Physician Read Roman Berrios MD FellowBUCKY Palumbo Procedure Type of Study ANGEL procedure:TRANSESOPHAGEAL ECHO (STAT) Indications:TAVR. Clinical History AAA, Anemia, , Arrhythmia, AFib, Bladder Cancer, Obesity, CAD, ESRD, GIB (05/2016), Murmur, HTN, Hypotension, Hypothyroid, [place], CABG x 3 (2009), Cath (01/2017) Height: 62 inches Weight: 68.95 kg (152 lbs) BSA: 1.7 m^2 BMI: 27.8 kg/m^2 HR: 93 bpm BP: 101/51 mmHg Summary POST PROCEDURE: S/P TAVR Overall LV systolic function appears lower limits normal. Hypokinesis of the basal to mid inferior wall. Abnormal septal motion likely due to cardiac surgery. Mildly dilated RV with normal systolic function. Patient is s/p TAVR. The bioprosthetic valve is well-seated with normal function. There is no significant paravalvular regurgitation. There is a severe, eccentric, posteriorly directed MR jet. Systolic reversal of flow seen in the LUPV consistent with severe MR. Severe TR jet impinging on the interatrial septum. PASP is at least 45-50mmHg + RAP; this is likely an underestimation due to TR Previous Study Compared to prior study dated 02/17/2017, patient is s/p TAVR. Signature Findings Left Ventricle Overall LV systolic function appears lower limits normal. Hypokinesis of the basal to mid inferior wall. Abnormal septal motion likely due to cardiac surgery. Left AtriumSeverely dilated LA. Left atrial appendage with windsock morphology. No thrombus visualized. Right VentricleMildly dilated RV with normal systolic function. Right Atrium Severely dilated RA. Atrial SeptumNormal interatrial septum by available views. Aortic Valve Patient is s/p TAVR. The bioprosthetic valve is well-seated with normal function. There is no significant paravalvular regurgitation. Mitral Valve Mildly thickened and calcified mitral valve leaflets with severely restricted movement of the posterior leaflet. Moderate mitral annular calcification. There is a severe, eccentric, posteriorly directed MR jet. Tricuspid ValveMildly thickened TV with severe TR jet impinging on the interatrial septum. PASP is at least 45-50mmHg + RAP ; this is likely an underestimation due to TR severity. Pulmonic Valve Normal PV structure and function by limited views and Doppler. PericardiumNo pericardial effusion is visualized. IVC/SVC/PA/PV/PleuralSystolic reversal of flow seen in the LUPV consistent with severe MR. Procedure Note Interface, External Ris In - 03/31/2017 10:20 AM CDT Transesophageal Echocardiography Report (ANGEL) Demographics Patient Name SOUMYA JONES Date of Study 03/24/2017 JAMIE Gender Female Visit Number [id number] Race Unknown Room Number 6217 Number Date of 1945 Referring Physician Age 72 year(s) Cream Dipper Maria Luisa Dias RDCS Interpreting [facility] Needs to be Pre Physician Read Roman Berrios MD Fellow BUCKY Palumbo Procedure Type of Study ANGEL procedure:TRANSESOPHAGEAL ECHO (STAT) Indications:TAVR. Clinical History AAA, Anemia, , Arrhythmia, AFib, Bladder Cancer, Obesity, CAD, ESRD, GIB (05/2016), Murmur, HTN, Hypotension, Hypothyroid, [place], CABG x 3 (2009), Cath (01/2017) Height: 62 inches Weight: 68.95 kg (152 lbs) BSA: 1.7 m^2 BMI: 27.8 kg/m^2 HR: 93 bpm BP: 101/51 mmHg Summary POST PROCEDURE: S/P TAVR Overall LV systolic function appears lower limits normal. Hypokinesis of the basal to mid inferior wall. Abnormal septal motion likely due to cardiac surgery. Mildly dilated RV with normal systolic function. Patient is s/p TAVR. The bioprosthetic valve is well-seated with normal function. There is no significant paravalvular regurgitation. There is a severe, eccentric, posteriorly directed MR jet. Systolic reversal of flow seen in the LUPV consistent with severe MR. Severe TR jet impinging on the interatrial septum. PASP is at least 45-50mmHg + RAP; this is likely an underestimation due to TR Previous Study Compared to prior study dated 02/17/2017, patient is s/p TAVR. Signature Findings Left Ventricle Overall LV systolic function appears lower limits normal. Hypokinesis of the basal to mid inferior wall. Abnormal septal motion likely due to cardiac surgery. Left Atrium Severely dilated LA. Left atrial appendage with windsock morphology. No thrombus visualized. Right Ventricle Mildly dilated RV with normal systolic function. Right Atrium Severely dilated RA. Atrial Septum Normal interatrial septum by available views. Aortic Valve Patient is s/p TAVR. The bioprosthetic valve is well-seated with normal function. There is no significant paravalvular regurgitation. Mitral Valve Mildly thickened and calcified mitral valve leaflets with severely restricted movement of the posterior leaflet. Moderate mitral annular calcification. There is a severe, eccentric, posteriorly directed MR jet. Tricuspid Valve Mildly thickened TV with severe TR jet impinging on the interatrial septum. PASP is at least 45-50mmHg + RAP; this is likely an underestimation due to TR severity. Pulmonic Valve Normal PV structure and function by limited views and Doppler. Pericardium No pericardial effusion is visualized. IVC/SVC/PA/PV/Pleural Systolic reversal of flow seen in the LUPV consistent with severe MR. * Potassium-Stat Lab (03/24/2017 8:59 AM) Component Value Ref Range Potassium 4.5 3.6 - 5.5 meq/L Specimen Performing Laboratory Blood, Arterial [facility] [address] [address] * Type and screen, automated (03/22/2017 11:29 AM) Only the most recent of 3 results within the time period is included. Component Value Ref Range ABO/RH AUTOMATED (BEAKER) A POSITIVE Ab Scrn NEGATIVE Specimen Performing Laboratory Blood - Arm, [address] [address] * B-type Natriuretic Factor (BNP) (03/22/2017 11:29 AM) Component Value Ref Range BNP 2627 (H) 0 - 100 pg/mL Specimen Performing Laboratory Blood - Arm, [address] [address] * Albumin (03/22/2017 11:29 AM) Component Value Ref Range Albumin 3.4 (L) 3.5 - 5.0 g/dL Specimen Performing Laboratory Blood - Arm, [address] [address] * ECG 12 lead (03/22/2017 10:45 AM) Only the most recent of 2 results within the time period is included. Specimen Performing Laboratory GE MUSE Narrative Ventricular Rate 80 BPM Atrial Rate 80 BPM P-R Interval 186 ms QRS Duration 104 ms Q-T Interval 384 ms QTC Calculation(Bazett) 442 ms P [place] 79 degrees R [place] 100 degrees T [place] -39 degrees Normal sinus rhythm Rightward axis T wave abnormality, consider inferolateral ischemia Abnormal ECG When compared with ECG of 13-FEB-2017 18:37, QRS axis has shifted rightward Lead V5 is no longer misplaced Confirmed by MD MARCUS, DAPHNE ([id number]) on 03/22/2017 2:24:27 PM Procedure Note Interface, External Ris In - 03/22/2017 2:24 PM CDT Ventricular Rate 80 BPM Atrial Rate 80 BPM P-R Interval 186 ms QRS Duration 104 ms Q-T Interval 384 ms QTC Calculation(Bazett) 442 ms P [place] 79 degrees R [place] 100 degrees T [place] -39 degrees Normal sinus rhythm Rightward axis T wave abnormality, consider inferolateral ischemia Abnormal ECG When compared with ECG of 13-FEB-2017 18:37, QRS axis has shifted rightward Lead V5 is no longer misplaced Confirmed by MD MARCUS, DAPHNE ([id number]) on 03/22/2017 2:24:27 PM * VASCULAR DIAGRAM -SCAN (02/25/2017 10:00 AM) Only the most recent of 2 results within the time period is included. * Hemodialysis (02/23/2017 7:24 PM) Only the most recent of 2 results within the time period is included. Narrative Ashley Ragland RN 02/23/20177:24 PM Pt completed hd tx VSS. Left avf positive thrill and bruit no bleeding. Vss. Report given to primary care RN. * PULMONARY FUNCTION - SCAN (02/23/2017 5:38 PM) * CTA chest, abdomen & pelvis - for dissection (02/23/2017 10:03 AM) Specimen Performing Laboratory [facility] Narrative Addendum Begins REPORT STATUS:A ADDENDUM: Study reviewed by radiology. Agree with the nonvascular findings as described below. Signed: Shayne Gibson MD Report Verified Date/Time:02/23/2017 17:16:08 Reading Location: [facility] P048 Angio Body Reading Room Addendum Ends FINAL REPORT CT angiography of the thoracoabdominal aorta [...] reconstruction, and/or weight based adjustment of the mA/kV was utilized to reduce the radiation dose [...] mm (34 mm valve). Agatston Score is 809.By planimetry, the aortic valve area is approximately 74 sq mm. The minimum distance between the most inferior bypass graft to the aortic annulus is approximately 3.6 cm. The sinus of Valsalva height, RCC (systole): 11.8 mm The sinus of Valsalva height, LCC (systole): 12.9 mm The sinus of Valsalva diameter, RCC (diastole): 28.3 mm The sinus of Valsalva diameter, LCC (diastole): 26.2 mm The sinus of Valsalva diameter, NCC (diastole): 26.2 mm The sinotubular junction measures approximately 26.3 x 25.5 mm. The aortic root angulation measures 31.5 degrees. The angle of delivery is CAMBODIAN 7 CAR 4. The minimal and perpendicular abdominal aortic diameter measure 21.1 and 23.1 mm, respectively. The abdominal aortic diameter measure 6.2 x 6.0 cm by multiplanar reformation. The minimum and the perpendicular left common iliac artery measures 10.3 and 10.7 mm (stent).The minimum and the perpendicular left external iliac artery measures 7.3 and 8.4 mm, respectively with minimaltortuosity and nocalcific atherosclerosis present. The minimum and the perpendicular left femoral artery measures 6.3 and 7.4 mm, respectively with minimaltortuosity and mildcalcific atherosclerosis present. The minimum and the perpendicular [...] measures 6.3 and 6.7 mm, respectively with minimaltortuosity and mildcalcific atherosclerosis present. NONVASCULAR: Assessment of the thyroid [...] enlarged. The pancreas appears grossly unremarkable. The pamunkey kidneys are not identified bilaterally. Correlate clinically. [...] identified. Some degenerative changes are noted. Conclusions: 1.Patient has a diagnosis of aortic stenosis. The [...] be helpful for TAVR as described above. 2.The central pulmonary artery is mildly prominent with no evidence of central pulmonary artery embolism as described. 3.Other findings as described above including the bowel findings, a degree of mediastinal adenopathy. 4.An addendum will be dictated by the Supervisor Coal Handling Radiologist regarding the nonvascular findings. Signed: Perez Rand MD Report Verified Date/Time:02/23/2017 12:22:19 Reading Location: [place] [address] Cardiology MRI Procedure Note Interface, External Ris In - 02/23/2017 5:18 PM CDT Addendum Begins REPORT STATUS:A ADDENDUM: Study reviewed by radiology. Agree with the nonvascular findings as described below. Signed: Shayne Gibson MD Report Verified Date/Time: 02/23/2017 17:16:08 Reading Location: [place] [address] Angio Body Reading Room Addendum Ends FINAL REPORT CT angiography of the thoracoabdominal aorta [...] reconstruction, and/or weight based adjustment of the mA/kV was utilized to reduce the radiation dose [...] sinus of Valsalva height, RCC (systole): 11.8 mm The sinus of Valsalva height, LCC (systole): 12.9 mm The sinus of Valsalva diameter, RCC (diastole): 28.3 mm The sinus of Valsalva diameter, LCC (diastole): 26.2 mm The sinus of Valsalva diameter, NCC (diastole): 26.2 mm The sinotubular junction measures approximately 26.3 x 25.5 mm. The aortic root angulation measures 31.5 degrees. The angle of delivery is CAMBODIAN 7 CAR 4. The minimal and perpendicular [...] enlarged. The pancreas appears grossly unremarkable. The pamunkey kidneys are not identified bilaterally. Correlate clinically. [...] An addendum will be dictated by the Supervisor Coal Handling Radiologist regarding the nonvascular findings. Signed: Perez Rand MD Report Verified Date/Time: 02/23/2017 12:22:19 Reading Location: [place] [address] Cardiology MRI * Calcium, Ionized (02/23/2017 3:54 AM) Only the most recent of 7 results within the time period is included. Component Value Ref Range Calcium, Ion 1.09 (L) 1.12 - 1.27 mmol/L pH, Blood 7.39 Specimen Performing Laboratory Blood [address] [address] * Phosphorus (02/23/2017 3:54 AM) Only the most recent of 7 results within the time period is included. Component Value Ref Range Phosphorus 3.9 2.3 - 4.7 mg/dL Specimen Performing Laboratory Blood [address] [address] * Magnesium (02/23/2017 3:54 AM) Only the most recent of 6 results within the time period is included. Component Value Ref Range Magnesium 2.0 1.6 - 2.6 mg/dL Specimen Performing Laboratory Blood [facility] [address] [address] * EKG-SCANNED (02/22/2017 12:20 PM) * Pulmonary Funct Lab Spirometry (02/21/2017 11:21 AM) Narrative Talon Andino, BRIAN, RUBBER FACTORY WORKER 02/21/2017 11:21 AM [facility] PFT CHARTING REPORT Infection Control/Hand Hygiene procedures followed throughout the encounter with patient: Yes Patient Identification Method: Patient name verified on armband, and Medical record on armband, Is the order complete?: Yes Account ID#: [id number] Patient Name: Soumya Jones Birthdate: 1945 Age: 72 y.o. Sex: female Admission Date: 02/13/2017Patient Status: Inpatient Reasons/Symptom for having the Test?: a history/complaint of a dyspnea Type of study/treatment ordered by physician: Spirometry Lab Results Component Value Date HGB 8.7 (L) 02/21/2017 Ranges: Adult Male 13 - 16.8 g/dlAdult Female 12 - 15 g/dl 6 Minute Walk (read only) 02/21/2017 02/21/2017 02/21/2017 Pulse 84 - 84 SpO2 96 (No Data) 98 Study Date: 02/21/2017Study Time: 934 ASSESSMENT History & Physical Mode of Arrival: Testing was performed at patient bedside Pulse: 84Resp: 18 SPO2: 98 % RA Pain Assessment Pain:None TESTING/THERAPEUTICS Medications ordered or required for procedure: N/A PT EDUCATION/INSTRUCTIONS Barriers to learning: No known barriers to learning. Learning need identified: Yes, Patient/Family/Guradian was informed of the ordered study by the physician Barriers to performing study or treatment: Patient has no known disability to perform the study or treatment. DISCHARGE The study was completed in accordance with the physician's order and patient released from the lab without adverse outcome. * PERIPHERAL VASCULAR REPORT - SCAN (02/19/2017 7:20 AM) * Carotid doppler bilateral (02/18/2017 5:23 PM) Component Value Ref Range Ejection Fraction Specimen Performing Laboratory [facility] ECHO HEARTLAB [facility] Impressions Right Impression 1. There is <50% diameter reduction (approximately 43% by 2-D measurement) in the internal carotid artery with a peak velocity of 96/20 cm/sec and heterogeneous plaque. 2. The external carotid artery is within normal limits. 3. There is non-occluding plaque in the common carotid artery. 4. The vertebral artery flow is antegrade and normal. 5. The subclavian artery is within normal limits where visualized. Left Impression 1. Post endarterectomy, the internal carotid artery is patent with a velocity of 83 cm/sec. 2. The external carotid artery is patent. 3. There is >50% stenosis in the distal common carotid artery with a velocity of 469/160 cm/sec . 4. The vertebral artery flow is antegrade and normal. 5. The subclavian artery is patent with a velocity and waveform consistent with a more distal arteriovenous dialysis fistula/graft. Conclusions Summary Carotid duplex scanning and color flow imaging were performed bilaterally. The exam was technically difficult ,however,the arteries were adequately visualized. The right internal carotid artery had <50% hemodynamically insignificant stenosis (approximately 43% by 2-D measurement) with heterogeneous plaque. The right subclavian artery was patent with normal flow where visualized. Post endarterectomy, the left internal carotid artery was patent with no significant stenosis. There was >50% stenosis in the left distal common carotid artery with a velocity of 469 cm/sec . The left subclavian artery was patent with a velocity and waveform consistent with a more distal arteriovenous dialysis fistula/graft. Signature Velocities are measured in cm/s ; Diameters are measured in cm Carotid Right Measurements + +----+----+-----+ + + + !Location !PSV !EDV !Angle!%Stenosis 2D!%Stenosis Doppler! Tortuosity ! + +----+----+-----+ + + + !Prox CCA !140 !17!60 !! ! ! + +----+----+-----+ + + + !Dist CCA !112 !24.6!60 !! ! ! + +----+----+-----+ + + + !Prox ICA !96.2!20.5!60 !43 %!<50% ! ! + +----+----+-----+ + + + !Dist ICA !66.8!15.2!60 !! ! ! + +----+----+-----+ + + + !Prox ECA !79.7!7.62!60 !! ! ! + +----+----+-----+ + + + !Vertebral!49.2!11.1!60 !! ! ! + +----+----+-----+ + + + !Prox Subclavian!135 !!60 !! ! ! + +----+----+-----+ + + + - There is antegrade vertebral flow noted on the right side. - Additional Measurements:ICAPSV/CCAPSV 0.86.ICAEDV/CCAEDV 1.21. Carotid Left Measurements + +----+----+-----+ + + + !Location !PSV !EDV !Angle!%Stenosis 2D!%Stenosis Doppler! Tortuosity ! + +----+----+-----+ + + + !Prox CCA !45.2!14.9!60 !! ! ! + +----+----+-----+ + + + !Dist CCA !469 !160 !60 !!>50% ! ! + +----+----+-----+ + + + !Prox ICA !83.3!32.2!60 !CEA/PATENT! ! ! + +----+----+-----+ + + + !Dist ICA !88.8!29.1!60 !! ! ! + +----+----+-----+ + + + !Prox ECA !71.1!28.7!60 !! ! ! + +----+----+-----+ + + + !Vertebral!44!14.9!60 !! ! ! + +----+----+-----+ + + + !Prox Subclavian!172 !48.1!60 !! ! ! + +----+----+-----+ + + + - There is antegrade vertebral flow noted on the left side. - Additional Measurements:ICAPSV/CCAPSV 0.19.ICAEDV/CCAEDV 2.16. Narrative [facility] - Carotid Duplex Study Demographics Patient Name SOUMYA JONES Date of Study 02/18/2017 JAMIE [id number] Age 72 Visit Number [id number] Gender Female Accession Number [id number] Date of 1945 Karely Robles MD Room Number 1022 Physician SonographMadi Chinchilla. Jesse Samuel MD, [facility] Zachary Manio Procedure Type of Study: Cerebral: Carotid, CAROTID DOPPLER, BILATERAL. Indications for Study:TAVR protocol . Patient Status:Routine. Study Location:Vascular Lab. Technical Quality:Technically Difficult. Risk Factors History of Disease + +----+ + !Diagnosis !Date!Comments ! 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 !Factors:!!hypertension, S/p left CEA in 2009, ESRD on HD, Left! !!!UA AVF as per patient and history of CAD s/p ACB 2009.! + +----+ + Procedure Note Interface, External Ris In - 02/19/2017 4:00 AM CDT [facility] - Carotid Duplex Study Demographics Patient Name SOUMYA JONES Date of Study 02/18/2017 JAMIE Age 72 Visit Number [id number] Gender Female Accession Number [id number] Date of 1945 Referring Lai Robles MD Room Number 1022 Physician Cream Dipper Rogelio Karimi Interpreting Yasmani Samuel MD, [facility] Physician SAM Dewey Procedure Type of Study: Cerebral: Carotid, CAROTID DOPPLER, BILATERAL. Indications for Study:TAVR protocol . Patient Status:Routine. Study Location:Vascular Lab. Technical Quality:Technically Difficult. Risk Factors History of Disease + +----+ + !Diagnosis !Date!Comments ! + +----+ + !History/Risk ! !Severe AR, MR and TR, SOB, severe pulmonary ! !Factors: ! !hypertension, S/p left CEA in 2010, ESRD on HD, Left ! ! ! !UA AVF as per patient and history of CAD s/p ACB 2009.! + +----+ + Impressions Right Impression 1. There is <50% diameter reduction (approximately 43% by 2-D measurement) in the internal carotid artery with a peak velocity of 96/20 cm/sec and heterogeneous plaque. 2. The external carotid artery is within normal limits. 3. There is non-occluding plaque in the common carotid artery. 4. The vertebral artery flow is antegrade and normal. 5. The subclavian artery is within normal limits where visualized. Left Impression 1. Post endarterectomy, the internal carotid artery is patent with a velocity of 83 cm/sec. 2. The external carotid artery is patent. 3. There is >50% stenosis in the distal common carotid artery with a velocity of 469/160 cm/sec . 4. The vertebral artery flow is antegrade and normal. 5. The subclavian artery is patent with a velocity and waveform consistent with a more distal arteriovenous dialysis fistula/graft. Conclusions Summary Carotid duplex scanning and color flow imaging were performed bilaterally. The exam was technically difficult ,however,the arteries were adequately visualized. The right internal carotid artery had <50% hemodynamically insignificant stenosis (approximately 43% by 2-D measurement) with heterogeneous plaque. The right subclavian artery was patent with normal flow where visualized. Post endarterectomy, the left internal carotid artery was patent with no significant stenosis. There was >50% stenosis in the left distal common carotid artery with a velocity of 469 cm/sec . The left subclavian artery was patent with a velocity and waveform consistent with a more distal arteriovenous dialysis fistula/graft. Signature Velocities are measured in cm/s ; Diameters are measured in cm Carotid Right Measurements + +----+----+-----+ + + + !Location !PSV !EDV !Angle!%Stenosis 2D!%Stenosis Doppler!Tortuosity ! + +----+----+-----+ + + + !Prox CCA !140 !17 !60 ! ! ! ! + +----+----+-----+ + + + !Dist CCA !112 !24.6!60 ! ! ! ! + +----+----+-----+ + + + !Prox ICA !96.2!20.5!60 !43 % !<50% ! ! + +----+----+-----+ + + + !Dist ICA !66.8!15.2!60 ! ! ! ! + +----+----+-----+ + + + !Prox ECA !79.7!7.62!60 ! ! ! ! + +----+----+-----+ + + + !Vertebral !49.2!11.1!60 ! ! ! ! + +----+----+-----+ + + + !Prox Subclavian!135 ! !60 ! ! ! ! + +----+----+-----+ + + + - There is antegrade vertebral flow noted on the right side. - Additional Measurements:ICAPSV/CCAPSV 0.86.ICAEDV/CCAEDV 1.21. Carotid Left Measurements + +----+----+-----+ + + + !Location !PSV !EDV !Angle!%Stenosis 2D!%Stenosis Doppler!Tortuosity ! + +----+----+-----+ + + + !Prox CCA !45.2!14.9!60 ! ! ! ! + +----+----+-----+ + + + !Dist CCA !469 !160 !60 ! !>50% ! ! + +----+----+-----+ + + + !Prox ICA !83.3!32.2!60 !CEA/PATENT ! ! ! + +----+----+-----+ + + + !Dist ICA !88.8!29.1!60 ! ! ! ! + +----+----+-----+ + + + !Prox ECA !71.1!28.7!60 ! ! ! ! + +----+----+-----+ + + + !Vertebral !44 !14.9!60 ! ! ! ! + +----+----+-----+ + + + !Prox Subclavian!172 !48.1!60 ! ! ! ! + +----+----+-----+ + + + - There is antegrade vertebral flow noted on the left side. - Additional Measurements:ICAPSV/CCAPSV 0.19.ICAEDV/CCAEDV 2.16. * CT abdomen/pelvis without iv contrast (02/17/2017 9:09 AM) Specimen Performing Laboratory [employer] FINAL REPORT CT OF THE ABDOMEN AND PELVIS CLINICAL HISTORY:GI bleed TECHNIQUE: CT of the abdomen and pelvis is performed without intravenous contrast administration. This exam was performed according to our departmental dose-optimization program which includes automated exposure control, adjustment of the mA and/or kV according to patient size and/or use of iterative reconstruction technique. COMPARISON FILM:None DISCUSSION: LOWER THORAX: Trace bilateral pleural effusions. Subsegmental bibasilar atelectasis and scarring. Cardiomegaly. HEPATOBILIARY: Cholelithiasis. Mildly cirrhotic morphology of the liver. PANCREAS: No pancreatic ductal dilation. No peripancreatic inflammatory change. SPLEEN: No splenomegaly. ADRENALS: No nodule. KIDNEYS/URETERS: Bilateral kidneys are absent. PELVIC ORGANS/BLADDER: Uterus is absent. GI TRACT: Moderate colonic diverticulosis. There is minimal stranding adjacent to the sigmoid colon with minimal wall thickening. Assessment is limited bilateral intravenous and oral contrast. There are findings of prior partial right colectomy. Remainder of the bowel is grossly unremarkable. PERITONEUM/RETROPERITONEUM: No free fluid or free air. LYMPH NODES: No upper abdominal, retroperitoneal, mesenteric, or pelvic lymphadenopathy. VESSELS: Assessment of the vasculature is limited by [...] pelvic lymph node dissection. Signed: Naveen Honeycutt MD Report Verified Date/Time:02/17/2017 10:10:39 Reading Location: [address] Radiology Reading Room Procedure Note Interface, External Ris In - 02/17/2017 10:12 AM CDT FINAL REPORT CT OF THE ABDOMEN AND PELVIS [...] HEPATOBILIARY: Cholelithiasis. Mildly cirrhotic morphology of the liver. PANCREAS: No pancreatic ductal dilation. No peripancreatic inflammatory change. SPLEEN: No splenomegaly. ADRENALS: No nodule. KIDNEYS/URETERS: Bilateral kidneys are absent. PELVIC ORGANS/BLADDER: Uterus is absent. GI TRACT: Moderate colonic diverticulosis. There is minimal stranding adjacent to the sigmoid colon with minimal wall thickening. Assessment is limited bilateral intravenous and oral contrast. There are findings of prior partial right colectomy. Remainder of the bowel is grossly unremarkable. PERITONEUM/RETROPERITONEUM: No free fluid or free air. LYMPH NODES: No upper abdominal, retroperitoneal, mesenteric, or pelvic lymphadenopathy. VESSELS: Assessment of the vasculature is limited by [...] pelvic lymph node dissection. Signed: Naveen Honeycutt MD Report Verified Date/Time: 02/17/2017 10:10:39 Reading Location: [address] Radiology Reading Room * NM GI bleed study (02/16/2017 9:43 AM) Specimen Performing Laboratory [facility] Narrative FINAL REPORT PROCEDURE: HEMORRHAGE STUDY with RBCs CPT CODE: 69422 INDICATION: Gastrointestinal Bleeding PROTOCOL: 19.8 mCi ofTc-99m was injected intravenously as labeled autologous red blood cells. Flow images of the abdomen were obtained, followed by serial images for approximately 60 minutes. Additional images were obtained 4 hours and 18 hours hours after tracer injection. FINDINGS:There is increase in tracer activity in the right upper quadrant of the abdomen in the area of the hepatic flexure, as well as in the mid abdomen. IMPRESSION: Findings are suggestive of interval gastrointestinal bleed. Signed: Marky Cheatham MD Report Verified Date/Time:02/16/2017 10:07:39 Reading Location: [address] [facility] Reading Room Procedure Note Interface, External Ris In - 02/16/2017 10:09 AM CDT FINAL REPORT PROCEDURE: HEMORRHAGE STUDY with RBCs CPT CODE: 81622 INDICATION: Gastrointestinal Bleeding PROTOCOL: 19.8 mCi of [...] suggestive of interval gastrointestinal bleed. Signed: Marky Cheatham MD Report Verified Date/Time: 02/16/2017 10:07:39 Reading Location: [address] Reading Room * REPORT OF PROCEDURE - ENDOSCOPY URL (02/14/2017 3:02 PM) * Hemoglobin and hematocrit (02/14/2017 10:06 AM) Only the most recent of 3 results within the time period is included. Component Value Ref Range Hemoglobin 8.7 (L) 11.2 - 15.7 GM/DL Hematocrit 27.5 (L) 34.1 - 44.9 % Specimen Performing Laboratory Blood - Arm, [place] [address] * CBC (Hemogram only) (02/14/2017 5:11 AM) Only the most recent of 2 results within the time period is included. Component Value Ref Range WBC 8.1 3.5 - 10.5 K/ L RBC 2.78 (L) 3.93 - 5.22 M/ L Hemoglobin 8.0 (L) 11.2 - 15.7 GM/DL Hematocrit 25.7 (L) 34.1 - 44.9 % MCV 92.4 79.4 - 94.8 fL MCH 28.8 25.6 - 32.2 pg MCHC 31.1 (L) 32.2 - 35.5 GM/DL RDW 17.8 (H) 11.7 - 14.4 % Platelets 187 150 - 450 K/CU MM MPV 10.8 9.4 - 12.3 fL nRBC 0 0 - 0 /100 WBC Specimen Performing Laboratory Blood - Arm, Right [facility] [address] [place] [address] * Transthoracic echo result (02/13/2017 8:42 PM) Component Value Ref Range Ejection Fraction Specimen Performing Laboratory [facility] ECHO HEARTLAB [facility] Narrative Transthoracic Echocardiography Report (TTE) Demographics Patient Name TRELL Saeed Date of Study 02/13/2017 [id number] Gender Female Visit Number Race Unknown [id number] Room Number 1546 Number Date of Birth1945Referring Physician Travis Hoyt MD Age72 year(s)Cream Dipper Carroll Canchola Interpreting Roman Berrios, Physician Fellow BUCKY Marquez Procedure Type of Study TTE procedure Indications:Dyspnea/SOB. Clinical History HTN,ESRD,A-FIB, Height: 62 inches Weight: 68.04 kg (150 lbs) BSA: 1.69 m^2 BMI: 27.44 kg/m^2 HR: 82 bpm BP: 109/56 mmHg Summary The left ventricle is chamber size (by vol index) is severely enlarged (female - LVED vol >80ml/m2). Mild septal hypertrophy is present. All of the LV segments have low normal contractility . LVEF by quantitative assessment is lower limits of normal (50-55%) . Degree of diastolic dysfunction (LAP assessment) is inconclusive due to significant MR . The right ventricular chamber size and systolic function are within normal limits. Severe aortic stenosis. ZOHREH=0.9cm2. Mean Aov gradient=24mmHg. AoV cusp mobility is severely decreased . Severe MR by regurgitation volume assessment. Qjlfcdfv-fh-bkskqi tricuspid regurgitation (hepatic vein systolic flow reversal, dilated RA) Estimated peak systolic PA pressure is 55-60 mmHg . The estimated RA pressure by IVC dynamics 16-20mmHg, however could be overestimated due to severe TR. No pericardial effusion is visualized. Signature Findings Rhythm/BPRegular sinus rhythm during the exam. Left Ventricle The left ventricle is chamber size (by vol index ) is severely enlarged (female - LVED vol >80ml/m2). Mild septal hypertrophy is present. All of the LV segments have low normal contractility . LVEF by quantitative assessment is lower limits of normal (50-55%) . Degree of diastolic dysfunction (LAP assessment) is inconclusive due to significant MR . Left AtriumLA size is severely dilated (>48 ml/m2) . Right VentricleThe right ventricular chamber size and systolic function are within normal limits. Right Atrium RA size is severely dilated. Aortic Valve Severe aortic stenosis. ZOHREH=0.9cm2. Mean Aov gradient=24mmHg. There is no aortic regurgitation. Moderate AoV cusp calcification. Moderate AoV cusp calcification. AoV cusp mobility is severely decreased . Mitral Valve Severe MR by regurgitation volume assessment. Mfyu-vk-bgkgclrk MV leaflet thickening. The mechanism for MR is leaflet tethering MV calcification is prominent in the posterior leaflet . Tricuspid ValveMild TV leaflet thickening. Estimated peak systolic PA pressure is 55-60 mmHg . Ommkqmpu-uj-ceewxf tricuspid regurgitation (hepatic vein systolic flow reversal, dilated RA) Pulmonic Valve Normal PV structure and function by limited views and Doppler. AortaAortic root size (SInus of Valsalva diameter) is normal . PericardiumNo pericardial effusion is visualized. IVC/SVC/PA/PV/PleuralThe inferior vena cava size is increased . The estimated RA pressure by IVC dynamics 16-20mmHg, however could be overestimated due to severe TR. Chambers/Structures Left Atrium LA Volume: 112.59 mlLA Area: 31.97 cm^2 LA Vol. Index: 67 ml/m^2 Left Ventricle LVIDd: 5.83 cm LVEDV 2D: 173.96 ml LVIDs: 4.99 cm LVESV 2D: 83.93 ml LV Septum Diastolic: 1.19 cm LV PW Diastolic: 1.08 cm LV FS: 14.4 % LV ESV (Cubed):124.25 cc LVOT Diameter: 2 cm LV ESV (Teich):117.69 ml LV SV (Teich):50.85 ml LV SI (Teich):30.09 ml/m^2 LVEF 2D Teich: 51.8 % Shunts QS:63.37 ml Doppler/Quantitative Measurements Mitral Valve Peak Velocity: 4.52 m/s Mean Velocity: 0.73 m/s Mean Gradient: 2.66 mmHg Area (continuity): 2.2 cm^2 MR Velocity: 6.33 m/s MR VTI: 185.73 cm MR Vena Contracta: 0.95 mm MV VTI: 28.83 cm MR Pk Grad: 160.38 mmHg Aortic Valve Peak Velocity: 3.38 m/sMean Velocity: 2.33 m/s Peak Gradient: 45.58 mmHgMean Gradient: 24.3 mmHg AV Area (continuity): 0.88 cm^2 AV VTI: 71.72 cm AV DVI: 0.28 LVOT Peak Velocity: 0.97 m/s Peak Gradient: 3.75 mmHg Mean Velocity: 0.63 m/s Mean Gradient: 1.89 mmHg LVOT Diameter: 2 cm LVOT VTI: 20.17 cm LVOT Area: 3.14 cm^2LVOT SV:63.33 ml LVOT CO: 5.19 l/min LVOT CI: 3.07 l/min/m^2 Tricuspid Valve TV Mean Gradient: 22 mmHg TR Mean Velocity: 2.19 m/s Procedure Note Interface, External Ris In - 02/14/2017 5:59 PM CDT Transthoracic Echocardiography Report (TTE) Demographics Patient Name TRELL Saeed Date of Study 02/13/2017 Gender Female Visit Number Race Unknown Room Number 1546 Number Date of 1945 Referring Physician Travis Hoyt MD Age 72 year(s) Cream Dipper Carroll Brerios, Physician Fellow BUCKY Marquez Procedure Type of Study TTE procedure Indications:Dyspnea/SOB. Clinical History HTN,ESRD,A-FIB, Height: 62 inches Weight: 68.04 kg (150 lbs) BSA: 1.69 m^2 BMI: 27.44 kg/m^2 HR: 82 bpm BP: 109/56 mmHg Summary The left ventricle is chamber size (by vol index) is severely enlarged (female - LVED vol >80ml/m2). Mild septal hypertrophy is present. All of the LV segments have low normal contractility . LVEF by quantitative assessment is lower limits of normal (50-55%) . Degree of diastolic dysfunction (LAP assessment) is inconclusive due to significant MR . The right ventricular chamber size and systolic function are within normal limits. Severe aortic stenosis. ZOHREH=0.9cm2. Mean Aov gradient=24mmHg. AoV cusp mobility is severely decreased . Severe MR by regurgitation volume assessment. Rtogqbjx-bj-qubkts tricuspid regurgitation (hepatic vein systolic flow reversal, dilated RA) Estimated peak systolic PA pressure is 55-60 mmHg . The estimated RA pressure by IVC dynamics 16-20mmHg, however could be overestimated due to severe TR. No pericardial effusion is visualized. Signature Findings Rhythm/BP Regular sinus rhythm during the exam. Left Ventricle The left ventricle is chamber size (by vol index) is severely enlarged (female - LVED vol >80ml/m2). Mild septal hypertrophy is present. All of the LV segments have low normal contractility . LVEF by quantitative assessment is lower limits of normal (50-55%) . Degree of diastolic dysfunction (LAP assessment) is inconclusive due to significant MR . Left Atrium LA size is severely dilated (>48 ml/m2) . Right Ventricle The right ventricular chamber size and systolic function are within normal limits. Right Atrium RA size is severely dilated. Aortic Valve Severe aortic stenosis. ZOHREH=0.9cm2. Mean Aov gradient=24mmHg. There is no aortic regurgitation. Moderate AoV cusp calcification. Moderate AoV cusp calcification. AoV cusp mobility is severely decreased . Mitral Valve Severe MR by regurgitation volume assessment. Cjme-uf-clfnqhhm MV leaflet thickening. The mechanism for MR is leaflet tethering MV calcification is prominent in the posterior leaflet . Tricuspid Valve Mild TV leaflet thickening. Estimated peak systolic PA pressure is 55-60 mmHg . Snarigun-gp-hpdzyb tricuspid regurgitation (hepatic vein systolic flow reversal, dilated RA) Pulmonic Valve Normal PV structure and function by limited views and Doppler. Aorta Aortic root size (SInus of Valsalva diameter) is normal . Pericardium No pericardial effusion is visualized. IVC/SVC/PA/PV/Pleural The inferior vena cava size is increased . The estimated RA pressure by IVC dynamics 16-20mmHg, however could be overestimated due to severe TR. Chambers/Structures Left Atrium LA Volume: 112.59 ml LA Area: 31.97 cm^2 LA Vol. Index: 67 ml/m^2 Left Ventricle LVIDd: 5.83 cm LVEDV 2D:173.96 ml LVIDs: 4.99 cm LVESV 2D:83.93 ml LV Septum Diastolic: 1.19 cm LV PW Diastolic: 1.08 cm LV FS: 14.4 % LV ESV (Cubed):124.25 cc LVOT Diameter: 2 cm LV ESV (Teich):117.69 ml LV SV (Teich):50.85 ml LV SI (Teich):30.09 ml/m^2 LVEF 2D Teich: 51.8 % Shunts QS:63.37 ml Doppler/Quantitative Measurements Mitral Valve Peak Velocity: 4.52 m/s Mean Velocity: 0.73 m/s Mean Gradient: 2.66 mmHg Area (continuity): 2.2 cm^2 MR Velocity: 6.33 m/s MR VTI: 185.73 cm MR Vena Contracta: 0.95 mm MV VTI: 28.83 cm MR Pk Grad: 160.38 mmHg Aortic Valve Peak Velocity: 3.38 m/s Mean Velocity: 2.33 m/s Peak Gradient: 45.58 mmHg Mean Gradient: 24.3 mmHg AV Area (continuity): 0.88 cm^2 AV VTI: 71.72 cm AV DVI: 0.28 LVOT Peak Velocity: 0.97 m/s Peak Gradient: 3.75 mmHg Mean Velocity: 0.63 m/s Mean Gradient: 1.89 mmHg LVOT Diameter: 2 cm LVOT VTI: 20.17 cm LVOT Area: 3.14 cm^2 LVOT SV:63.33 ml LVOT CO: 5.19 l/min LVOT CI: 3.07 l/min/m^2 Tricuspid Valve TV Mean Gradient: 22 mmHg TR Mean Velocity: 2.19 m/s after 09/11/2016
--- OUTSIDE RECORDS SUMMARY | 2017-09-12 07:53 | XMS REPORT | Continuity of Care Document ---
Author Author [facility] Organization [facility] Address [address] [facility] [place] [address] Phone Unavailable Care Team Providers Care Warehouse Freight Handler Name Role Phone STANLEY HEATON MD PCP Insurance Providers Guarantor Jeff Jones Address [address] [place] [address] Email [email or web address] Payer [employer] Policy Number [id number] Subscriber's Name Jeff Jones Relationship 18 Self / Same As Patient Group Number [id number] Group Name [employer] - [employer] Advantage [employer]is Effective Date 17 Advance Directives Directive Response Recorded Date/Time Does the patient have an advance directive? No 08/21/17 5:58pm If yes, is advance directive on file with [facility]? No 02/09/17 10:30pm If not on file with [facility] will patient provide a copy? No 02/09/17 10:30pm Do you have a Directive to Physician? No 08/21/17 12:18pm Do you have a Medical Power of Stove Installer? No 08/21/17 12:18pm Do you have an out of hospital Do Not Resuscitate Order? No 08/21/17 12:18pm Do you have any special needs we should be aware of? No 08/21/17 12:18pm Do you have a support person here with you today? No 08/21/17 12:18pm Did patient receive Notice of Privacy Practices? Yes 08/21/17 12:18pm Did patient receive patient rights and responsibilities? Yes 08/21/17 12:18pm Problems Medical Problem Onset Date Status Abdominal pain Unknown Abdominal pain Unknown Anemia Unknown Black stools Unknown ESRD (end stage renal disease) 04/08/2015 Acute ESRD (end stage renal disease) on dialysis Unknown Fever Unknown GI bleed Unknown Hyperkalemia Unknown Inflammatory bowel disease (ulcerative colitis) Unknown Renal failure Unknown Sinus tachycardia Unknown UTI (urinary tract infection) 04/08/2015 Acute Medications Current Home Medications Medication Dose Units Route Directions Days Qty Instructions Start Date Amiodarone Hcl 200 Mg Tablet 100 Mg Oral Daily TAKES AT 3PM Aspirin (Aspir 81) 81 Mg Tablet. 81 Mg Oral Bedtime Clopidogrel Bisulfate (Plavix) 75 Mg Tablet 75 Mg Oral Daily 30 Tab Levothyroxine Sodium 50 Mcg Tablet 200 Mcg Oral Daily 30 Tab Pravastatin Sodium (Pravachol) 40 Mg Tablet 40 Mg Oral Bedtime Past Home Medications Medication Directions Ordered Status Amiodarone , Discontinued Aspirin (Aspir 81) 81 Mg Tablet.dr 81 Mg Oral Daily Discontinued Aspirin (Aspir 81) 81 Mg Tablet.dr 81 Mg Oral Daily Discontinued Aspirin , Discontinued Cephalexin (Keflex) 250 Mg Capsule, 100 Mg Oral Three Times A Day Discontinued Cholecalciferol (Vitamin D) 400 Unit Tab, 400 Units Oral Daily Discontinued Cholecalciferol (Vitamin D3) (Vitamin D) 400 Unit Capsule, 400 Units Oral Daily Discontinued [id number] 500 Mg Tab, 500 Mg Oral Bid@,07/08/14 Discontinued Clonidine Hcl (Catapres) 0.1 Mg Tablet, 0.1 Mg Oral At Bedtime Discontinued Cyanocobalamin (Vitamin B-12) (Vitamin B-12) 500 Mcg Tablet, 500 Mcg Oral Daily Discontinued Cyanocobalamin/Folic Acid (Vitamin Z08-Elfhg Acid Tablet) 1 Each Tablet, 1 Tab Oral Daily Discontinued Digoxin 125 Mcg Tablet, 0.125 Mg Oral Use As Directed Discontinued Digoxin 125 Mcg Tablet, Mg Oral Discontinued Furosemide (Lasix) 40 Mg Tablet, 40 Mg Oral Daily Discontinued Furosemide 20 Mg Tablet, 20 Mg Oral Daily Discontinued Furosemide , Discontinued Hydralazine Hcl 25 Mg Tab, 50 Mg Oral Three Times A Day Discontinued Levalbuterol Hcl (Xopenex) 1.25 Mg/3 Ml Vial.neb, 1.25 Mg Inhalation Rt Q4h as needed for Shortness Of Breath 07/08/14 Discontinued Levothyroxine Sodium 150 Mcg Tablet, 175 Mcg Oral Before Breakfast Discontinued Methylprednisolone (Medrol Dose Pack) 4 Mg/Dose Pack Tab, 4 Mg Oral As Dir Discontinued Metoprolol , Discontinued Metoprolol Succinate 25 Mg Tab.er.24h, 25 Mg Oral Twice A Day as needed for Elevated Blood Pressure Discontinued Metoprolol Succinate 50 Mg Tab.er.24h, 50 Mg Oral Daily Discontinued Metoprolol Tartrate 50 Mg Tablet, 50 Mg Oral Daily Discontinued Metoprolol Tartrate (Lopressor) 25 Mg Tab, 75 Mg Oral Twice A Day Discontinued Midodrine Hcl 2.5 Mg Tablet, 5 Mg Oral Use As Directed Discontinued Pravastatin , Discontinued Prednisone 5 Mg Tablet, 5 Mg Oral Daily Discontinued Sodium Bicarbonate 650 Mg Tablet, 650 Mg Oral Twice A Day Discontinued Sodium Bicarbonate , Discontinued Thyroid , Discontinued Tramadol Hcl/Acetaminophen (Ultracet Tablet) 1 Each Tablet, Oral Every 4 Hours for Pain Discontinued Vitamin D , Discontinued Warfarin Sodium 2.5 Mg Tablet, 2.5 Mg Oral Daily Discontinued Warfarin Sodium 2.5 Mg Tablet, 5 Mg Oral Daily Discontinued Warfarin Sodium (Coumadin) 5 Mg Tablet, 5 Mg Oral Every Evening Discontinued Warfarin Sodium 2.5 Mg Tablet, 2.5 Mg Oral Every Evening Discontinued Social History Social History Problem Response Recorded Date/Time Onset Date Status Hx Psychiatric Problems No 08/21/2017 5:58pm Not Applicable Not Applicable Hx Eating Disorder No 08/21/2017 5:58pm Not Applicable Not Applicable Hx Substance Use Disorder No 08/21/2017 5:58pm Not Applicable Not Applicable Hx Depression No 08/21/2017 5:58pm Not Applicable Not Applicable Hx Alcohol Use No 08/21/2017 5:58pm Not Applicable Not Applicable Hx Substance Use Treatment No 08/21/2017 5:58pm Not Applicable Not Applicable Hx Physical Abuse No 08/21/2017 5:58pm Not Applicable Not Applicable Smoking Status Start Date Stop Date Former smoker Hospital Discharge Instructions No hospital discharge instruction information available. Plan of Care Discharge Date 08/23/17 1:35pm Disposition HOME, SELF-CARE Instructions/Education Provided Abdominal Pain - Adult Prescriptions See Medication Section Additional Instructions/Education Renal Diet @ gm Potassium Functional Status Query Response Date Recorded Assistive Devices Standard Walker August 21, 2017 6:04pm Ambulation Ability Independent August 21, 2017 6:04pm Toileting Ability Independent August 23, 2017 1:24pm Allergies, Adverse Reactions, Alerts Allergen Type Severity Reaction Status Last Updated Sulfa (Sulfonamide Antibiotics) Allergy Unknown RASH Active 10/10/16 Nifedipine Allergy Unknown Active 06/11/16 Amlodipine Allergy Unknown Active 06/11/16 Clonidine Allergy Unknown ALLERGIC TO CLONIDINE PATCH Active 07/11/16 CLONIDINE PATCH Allergy Unknown Active 06/11/16 SURGICAL TAPE Allergy Intermediate ITCHING, TEARS SKIN Active 03/14/15 Immunizations No immunization information available. Vital Signs Acute Vital Signs Vital Response Date/Time Temperature (Fahrenheit) 97.4 degrees F (97.6 - 99.5) 08/23/2017 12:00pm Pulse Pulse Rate (adult) 83 bpm (60 - 90) 08/23/2017 12:00pm Respiratory Rate 20 bpm (12 - 24) 08/23/2017 12:00pm Blood Pressure 106/56 mm Hg 08/23/2017 12:00pm Height 5 ft 2 in 08/21/2017 11:37am Weight 158 lb 08/21/2017 11:37am Body Mass Index 28.9 kg/m^2 08/21/2017 5:58pm Results Laboratory Results Test Name Result Units Flags Reference Collection Date/Time Result Date/ Time Comments Stool Occult Blood POSITIVE H NEGATIVE 02/03/2017 11:15am 02/03/2017 11:31am Lactic Acid Level 6.9 MG/DL 4.5-19.8 02/11/2017 5:40am 02/11/2017 6: 14am Magnesium Level 1.7 MG/DL 1.3-2.1 02/09/2017 6:15pm 02/09/2017 7:06pm Hepatitis A IgM Antibody Negative 02/11/2017 8:19am 02/22/2017 6: 37am Hepatitis B Core IgM Antibody Negative 02/11/2017 8:19am 2016 6:37am Hepatitis C Antibody 0.1 02/11/2017 8:19am 02/22/2017 6:37am Reference Range:0.0 - 0.9 s/co ratio Negative: < 0.8 Indeterminate: 0.8 - 0.9 Positive: > 0.9 The CDC recommends that a positive HCV antibody result be followed up with a HCV Nucleic Acid Amplification test (029491). Testing performed by: [facility] [address] Dir: Cole Huerta MD White Blood Count 10.66 x10e3/uL # 4.8-10.8 08/22/2017 5:46am 08/22/2017 6:47am Red Blood Count 3.09 x10e6/uL L 3.6-5.1 08/22/2017 5:46am 08/22/2017 6: 47am Hemoglobin 9.4 g/dL L 12.0-16.0 08/22/2017 5:46am 08/22/2017 6:47am Hematocrit 30.5 % L 34.2-44.1 08/22/2017 5:46am 08/22/2017 6:47am Mean Corpuscular Volume 98.7 fL 81-99 08/22/2017 5:46am 08/22/2017 6: 47am Mean Corpuscular Hemoglobin 30.4 pg 28-32 08/22/2017 5:46am 08/22/2017 6:47am Mean Corpuscular Hemoglobin Concent 30.8 g/dL L 31-35 08/22/2017 5:46am 08/22/2017 6:47am Red Cell Distribution Width 18.2 % H 11.7-14.4 08/22/2017 5:46am 2017 6:47am Platelet Count 174 x10e3/uL 140-360 08/22/2017 5:46am 08/22/2017 6: 47am Neutrophils (%) (Auto) 81.4 % H 38.7-80.0 08/22/2017 5:46am 08/22/2017 6 :47am Lymphocytes (%) (Auto) 7.4 % L 18.0-39.1 08/22/2017 5:46am 08/22/2017 6: 47am Monocytes (%) (Auto) 8.9 % 4.4-11.3 08/22/2017 5:46am 08/22/2017 6: 47am Eosinophils (%) (Auto) 1.5 % 0.0-6.0 08/22/2017 5:46am 08/22/2017 6: 47am Basophils (%) (Auto) 0.5 % 0.0-1.0 08/22/2017 5:46am 08/22/2017 6:47am IM GRANULOCYTES % 0.3 % 0.0-1.0 08/22/2017 5:46am 08/22/2017 6:47am Neutrophils # (Auto) 8.7 H 2.1-6.9 08/22/2017 5:46am 08/22/2017 6: 47am Lymphocytes # (Auto) 0.8 L 1.0-3.2 08/22/2017 5:46am 08/22/2017 6: 47am Monocytes # (Auto) 1.0 H 0.2-0.8 08/22/2017 5:46am 08/22/2017 6:47am Eosinophils # (Auto) 0.2 0.0-0.4 08/22/2017 5:46am 08/22/2017 6:47am Basophils # (Auto) 0.1 0.0-0.1 08/22/2017 5:46am 08/22/2017 6:47am Absolute Immature Granulocyte (auto 0.03 x10e3/uL 0-0.1 08/22/2017 5: 46am 08/22/2017 6:47am Prothrombin Time 12.9 seconds 11.9-14.5 08/21/2017 11:45am 08/21/2017 12:54pm Prothromb Time International Ratio 1.05 08/21/2017 11:45am 2017 12:54pm Oral Anticoagulant Therapy INR Values: 1. Low Intensity Therapy 1.5 - 2.0 2. Moderate Intensity Therapy 2.0 - 3.0 3. High Intensity Therapy(1) 2.5 - 3.5 4. High Intensity Therapy(2) 3.0 - 4.0 5. Panic Value INR > 5.0 Activated Partial Thromboplast Time 37.1 seconds H 23.8-35.5 08/21/2017 11:45am 08/21/2017 12:54pm Sodium Level 141 mmol/L 136-145 08/23/2017 5:53am 08/23/2017 6:59am Potassium Level 5.1 mmol/L 3.5-5.1 08/23/2017 5:53am 08/23/2017 6:59am Chloride Level 104 mmol/L 98-107 08/23/2017 5:53am 08/23/2017 6:59am Carbon Dioxide Level 27 mmol/L 22-29 08/23/2017 5:53am 08/23/2017 6: 59am Anion Gap 15.1 mmol/L 8-16 08/23/2017 5:53am 08/23/2017 6:59am Blood Urea Nitrogen 29 mg/dL # H 7-08/23/2017 5:53am 08/23/2017 6: 59am Creatinine 5.27 mg/dL H 0.57-1.11 08/23/2017 5:53am 08/23/2017 6:59am BUN/Creatinine Ratio 6 6-08/23/2017 5:53am 08/23/2017 6:59am Estimat Glomerular Filtration Rate 8 ML/MIN L 60- 08/23/2017 5:53am 6:59am Ranges were taken from the National Kidney Disease Education Program and the National Kidney Foundation literature. Reference ranges: 60 or greater: Normal 16-59 (for 3 consecutive months): Chronic kidney disease 15 or less: Kidney failure Glucose Level 89 mg/dL 74-118 08/23/2017 5:53am 08/23/2017 6:59am Calcium Level 8.9 mg/dL 8.4-10.2 08/23/2017 5:53am 08/23/2017 6:59am Bedside Glucose 89 mg/dL 70-120 08/23/2017 11:42am 08/23/2017 12:10pm Meter ID: [id number] Total Bilirubin 1.0 mg/dL 0.2-1.2 08/23/2017 5:53am 08/23/2017 6:59am Aspartate Amino Transf (AST/SGOT) 11 IU/L 5-34 08/23/2017 5:53am 2017 6:59am Alanine Aminotransferase (ALT/SGPT) < 6 IU/L 0-55 08/23/2017 5:53am 6:59am Total Protein 6.4 g/dL L 6.5-8.1 08/23/2017 5:53am 08/23/2017 6:59am Albumin 2.5 g/dL L 3.5-5.0 08/23/2017 5:53am 08/23/2017 6:59am Globulin 3.9 g/dL H 2.3-3.5 08/23/2017 5:53am 08/23/2017 6:59am Albumin/Globulin Ratio 0.6 L 0.8-2.0 08/23/2017 5:53am 08/23/2017 6: 59am Alkaline Phosphatase 109 IU/L 40-150 08/23/2017 5:53am 08/23/2017 6: 59am B-Type Natriuretic Peptide 1945.2 pg/mL H 0-100 08/21/2017 11:45am 08/21 1:11pm Creatine Kinase 33 IU/L 29-168 08/21/2017 11:45am 08/21/2017 1:03pm Creatine Kinase MB 1.20 ng/mL 0-5.0 08/21/2017 11:45am 08/21/2017 1: 07pm Troponin I 0.026 ng/mL 0-0.300 08/21/2017 11:45am 08/21/2017 1:07pm Amylase Level 55 U/L 25-125 08/22/2017 5:46am 08/22/2017 7:08am Lipase 7 U/L L 8-78 08/22/2017 5:46am 08/22/2017 7:08am Hepatitis B Surface Antigen Negative Negative 08/22/2017 5:46am 08/23 6:07am Performed at: [facility] [id number] Chair Maker: Cole Huerta MD, Phone: [phone] Procedures Procedure Status Date Provider(s) Unsched dialysis ESRD pt hos Completed 02/03/17 MAYNOR MARTIN MD PERFORMANCE OF URINARY FILTRATION, SINGLE Completed 02/11/17 DEVYN MEHTA TRANSFUSE NONAUT RED BLOOD CELLS IN CENTRAL VEIN, PERC Completed 02/10/[address] of abdomen and pelvis without contrast Active 08/21/17 SHYANNE WASHINGTON [facility] US gallbladder Active 08/21/17 SHYANNE WASHINGTON [facility] Encounters Encounter Location Arrival/Admit Date Discharge/Depart Date Attending Provider Discharged Inpatient [facility] 08/21/17 4:09pm 08/23/17 1:35pm KETTY BEAR MD Discharged Inpatient [facility] 02/09/17 10:05pm 12:56pm KETTY BEAR MD Discharged Inpatient (obs) [facility] 02/03/17 12:10pm 2:15pm KETTY BEAR MD
--- NOTE | 2017-09-12 08:55 | Diagnostic Imaging Report ---
Exam: Head and maxillofacial CTs without IV contrast History: Fall, pain Comparison studies: Head CT 11/13/2009 Technique: Axial images were obtained to the vertex and maxillofacial region. Coronal and sagittal images reconstructed from the axial data. Intravenous contrast: None Findings: Scalp: Midline frontal scalp hematoma with focus of subcutaneous emphysema related to laceration. No retained hyperdense foreign body. Bones: No fractures, blastic or lytic lesions. Brain sulci: Appropriate for age. Ventricles: Normal in size and configuration. No hydrocephalus. Parenchyma: No mass, acute hemorrhage or acute or chronic cortical vascular insults.. Sellar/suprasellar region: No abnormalities Craniocervical junction: Patent foramen magnum. No Chiari one malformation. Maxillofacial CT: Soft tissues: Midline frontal scalp hematoma, as above. Right periorbital soft tissue hematoma. Atherosclerotic calcifications in the carotid siphons with surgical clips in the left carotid space possibly related to previous carotid endarterectomy. A few left Bones: No fractures or bony abnormalities. Orbits: Globes and lenses are intact. No retrobulbar hematoma. Paranasal sinuses: Clear. Included cervical spine: Mildly degenerated cervical disks from C2 to the included C7 level. There is minimal retrolisthesis of C3 on C4 and anterolisthesis of C4 on C5. Mild canal stenosis at C3-C4 due to a disc osteophyte complex. Moderate bilateral foraminal stenosis at C3-C4 and on the left at C5-C6 due to uncovertebral arthrosis and facet arthrosis. Severe facet arthrosis on the left at C4-C5. Right central C5-C6 disc extrusion indents the thecal sac and may be in position to abut the right C6 nerve root Incidental findings: Atherosclerotic calcifications in the carotid siphons and intradural vertebral arteries. IMPRESSION: Head CT: 1. Frontal scalp hematoma and laceration without underlying fracture or retained hyperdense foreign body. 2. No acute intracranial abnormalities. 3. Mild age-related generalized volume loss. Maxillofacial CT: 1. Right periorbital soft tissue hematoma. 2. No maxillofacial fractures 3. Degenerative changes in the included cervical spine. 4. Postsurgical changes in the left neck. Signed by: Dr. Sushant Maguire M.D. on 09/12/2017 8:51 AM
== END 2017-09-12 09:29 | disposition home or self-care (01) ==
LOC: ER 07:49
DX: S00.12XA Contusion of left eyelid and periocular area, initial encounter (principal); S00.11XA Contusion of right eyelid and periocular area, initial encounter; S00.33XA Contusion of nose, initial encounter; S00.83XA Contusion of other part of head, initial encounter; W18.39XA Other fall on same level, initial encounter; Y92.008 Other place in unspecified non-institutional (private) residence as the place of occurrence of the external cause; I12.0 Hypertensive chronic kidney disease with stage 5 chronic kidney disease or end stage renal disease; E11.22 Type 2 diabetes mellitus with diabetic chronic kidney disease; N18.6 End stage renal disease; Z99.2 Dependence on renal dialysis
CPT/HCPCS: 70450; 70486; 99283

== ENCOUNTER 2017-10-28 07:34 | Inpatient (IN) | payer OTHER ==
[~2017-10-28] VITALS: Ht 309.9 cm; Wt 71.7 kg
--- OUTSIDE RECORDS SUMMARY | 2017-10-28 07:38 | XMS REPORT | Clinical Summary ---
Author Author CLAUDIA [facility] Address Unknown Phone Unavailable Care Team Providers Care Frame Aligner Name Role Phone PCP Unavailable Allergies Active [...] HTN (hypertension) ESRD (end stage renal disease) (FORM[facility]LY [facility]) Chronic a-fib ([facility]) Aortic valvar stenosis Anemia CAD (coronary artery disease) Bladder cancer ([facility]) Hypothyroidism Encounters Date Type Specialty Care Team Description 03/24/2017 [facility] Cardiac Intensive Care Mihai Howard, Nonrheumatic aortic valve - Encounter MD stenosis 03/25/2017 03/24/2017 Anesthesia Shahram Velásquez, AA Event 03/24/2017 Procedure Pass 03/24/2017 Surgery Mihai Howard, TAVR / HA MCR - IP MD PROC ONLY 03/22/2017 [facility] Mihai Howard, Aortic valve stenosis, Encounter MD etiology of cardiac valve disease unspecified 03/22/2017 Orders Only General Internal Medicine 02/25/2017 Documentation Nephrology Maya Gamez MD 02/16/2017 Procedure Pass 02/16/2017 Surgery Travis Hoyt MD L CATH & CORONARY ANGIOS 02/15/2017 Procedure Pass Gastroenterology 02/14/2017 Anesthesia Gastroenterology Dale Lam, Event HUMIDIFIER OPERATOR 02/14/2017 Procedure Pass Gastroenterology 02/14/2017 Surgery Gastroenterology Amita Jacobson ENTEROSCOPY, SALVADOR Lucas MD OVERTUBE SMALL INTESTINE-UPPER 02/13/2017 [facility] Cardiology Dank Quiroz MD Gastrointestinal - Encounter Tiffany Duque hemorrhage, unspecified 02/23/2017 Migel Dolan, gastrointestinal hemorrhage type;Tobi Escamilla MD (shortness of breath);AF (paroxysmal atrial fibrillation) ([facility]);Secondary hypertension;ESRD (end stage renal disease) ([facility]);Hypothyroidism, unspecified type;Hyperlipidemia, unspecified hyperlipidemia type;ESRD (end stage renal disease) on dialysis ([facility]);Essential hypertension;Nonrheumatic aortic valve stenosis;Non-rheumatic mitral regurgitation 02/11/2017 Orders Only Internal Medicine Dank Quiroz MD after 10/27/2016 Social History Tobacco Use Types Packs/Day Years [...] Not on file Implants Implanted Type Area Manufacturing Process Technician Device Expiration Model / Identifier Date Serial / Lot Device Clsr Angio-Seal Vip 6fr Cardiovasc Left: [employer] 12/27/2017 [id number] / [id number] - [id number] isabella Beckwith MED:CARDIAC / Implanted: Qty: 1 on 03/24/2017 by SURG [id number] Mihai Howard MD Closure Sys Perclose Progl 6fr Cardiovasc Right: [employer] [facility]:VASC 08435-13 / [id number] - [id number] isabella Beckwith DEV / Implanted: Qty: 2 on 03/24/2017 by [id number] Mihai Howard MD Device Clsr Angio-Seal Vip 6fr Cardiovasc Right: [employer] 02/27/2020 [id number] / [id number] - [id number] isabella Beckwith MED:CARDIAC / Implanted: Qty: 1 on 03/24/2017 by SURG [id number] Mihai Howard MD Valve Aortic 26 [id number]-[id number] - Valves [employer]:STRUC 11/03/2019 EVOLUTR-26 [id number] TURAL HEART -US / Implanted: Qty: 1 on 03/24/2017 by [id number] / Mihai Howard MD Procedures Procedure Name [...] OVERTUBE SMALL INTESTINE- UPPER WITH ANES after 10/27/2016 Results * ECHOCARDIOGRAM REPORT - SCAN (03/31/2017 [...] Ref Range Ejection Fraction Specimen Performing Laboratory [facility] ECHO HEARTLAB MKCKESSON CPA Narrative Transthoracic Echocardiography Report (TTE) Demographics Patient Name Javid JONES of Study 03/25/2017 BLEYL [id number] Female Visit Number [id number] Unknown [id number] Room Number 6217 Number Date of Birth1945Referring Physician Anita Jerome Age72 year(s)Dry Lumber Grader Emeli Rizvi, [facility] AnalystAlex Jeremiah Interpreting Zaire Chery MD Physician Procedure Type of Study TTE procedure:2DECHO W DOPPLER(CW/PW/COLOR) (Routine) Indications:Initial post operative evaluation of prosthetic valve. Clinical History HGB 9.7 HCT 32.1 % AbdAoAneurysm. , A-fib, ESRD, HTN, MA, CAD s/p ABC x 3 (2009) s/p [...] Study 03/25/2017 JAMIE Gender Female Visit Number [id number] Race Unknown Room Number 6217 Number Date of 1945 Referring Physician Anita Jerome Age 72 year(s) Dry Lumber Grader Emeli Rizvi RDCS Staff Reporter Yves Daniels Interpreting Zaire Chery MD Physician Procedure Type of Study TTE procedure:2DECHO W DOPPLER(CW/PW/COLOR) (Routine) Indications:Initial post operative evaluation of prosthetic valve. Clinical History HGB 9.7 HCT 32.1 % AbdAoAneurysm. , A-fib, ESRD, HTN, MA, CAD s/p ABC x 3 (2009) s/p [...] Nonreactive Specimen Performing Laboratory Blood - Arm, [place] [address] * CBC with platelet count + automated [...] 1 % Granulocytes-Relative Specimen Performing Laboratory Blood [address] [address] * Daily Prothrombin time/INR while on warfarin (03/25/2017 3:56 AM) Only the most recent of 5 results within the time period is included. Component Value Ref Range Protime 15.6 (H) 11.7 - 14.7 seconds INR 1.3 <=5.9 Specimen Performing Laboratory Blood [address] [address] Narrative RECOMMENDED COUMADIN/WARFARIN INR THERAPY RANGES STANDARD [...] --------- - ------ CBC with platelet count ...[[id number]]AbnormalFinal result Please view results for these tests [...] FOR DIALYSIS PATIENTS. Specimen Performing Laboratory Blood [address] [address] * Prepare Leuko-Red RBC (03/24/2017 2:39 PM) Only the most recent of 3 results within the time period is included. Component Value Ref Range CROSSMATCH COMPATIBLE Unit ABO A Pos UNIT NUMBER [id number] Status RETURNED FROM ISSUE Blood Bank Product RED BLOOD CELLS PRODUCT CODE P9836X19 CROSSMATCH COMPATIBLE Unit ABO A Pos UNIT NUMBER [id number] Status RETURNED FROM ISSUE Blood Bank Product RED BLOOD CELLS PRODUCT CODE J7019L62 CROSSMATCH COMPATIBLE Unit ABO A Pos UNIT NUMBER [id number] Status RETURNED FROM ISSUE Blood Bank Product RED BLOOD CELLS PRODUCT CODE N1776H47 CROSSMATCH COMPATIBLE Unit ABO A Pos UNIT NUMBER [id number] Status RETURNED FROM ISSUE Blood Bank Product RED BLOOD CELLS PRODUCT CODE Q7128Y71 Specimen Performing Laboratory Other [employer] * POC ACTIVATED CLOTTING TIME (03/24/2017 1:45 PM) Only the most recent of 3 results within the time period is included. Component Value Ref Range Activated Clotting Time 136Comment: TESTED AT [address] [address] Specimen Performing Laboratory Blood [address] [address] * Transesophageal echo (03/24/2017 11:44 AM) Only the most recent of 2 results within the time period is included. Component Value Ref Range Ejection Fraction Specimen Performing Laboratory [facility] ECHO [facility]ART[facility] Narrative Transesophageal Echocardiography Report (ANGEL) Demographics Patient NameSOUMYA JONES Date of Study03/24/2017 BLEYL Gender Female Visit [id number] Race Unknown [id number] Number Date of 1945 Referring Physician Age 72 year(s) Dry Lumber Grader Maria Luisa Dias [facility] Interpreting [facility] Needs to be Pre Physician Read Roman Berrios MD FellowBUCKY Palumbo Procedure Type of Study ANGEL procedure:TRANSESOPHAGEAL ECHO (STAT) Indications:TAVR. Clinical History AAA, Anemia, , Arrhythmia, AFib, Bladder Cancer, Obesity, CAD, ESRD, GIB (05/2016), Murmur, HTN, Hypotension, Hypothyroid, MA, CABG x 3 (2009), Cath (01/2017) Height: [...] Study 03/24/2017 JAMIE Gender Female Visit Number [id number] Race Unknown Room Number 6217 Number Date of 1945 Referring Physician Age 72 year(s) Dry Lumber Grader Maria Luisa Dias RDCS Interpreting BSC Needs to be Pre Physician Read Roman Berrios MD Fellow BUCKY Palumbo Procedure Type of Study ANGEL procedure:TRANSESOPHAGEAL ECHO (STAT) Indications:TAVR. Clinical History AAA, Anemia, , Arrhythmia, AFib, Bladder Cancer, Obesity, CAD, ESRD, GIB (05/2016), Murmur, HTN, Hypotension, Hypothyroid, MA, CABG x 3 (2009), Cath (01/2017) Height: [...] meq/L Specimen Performing Laboratory Blood, Arterial [facility] [address] [address] * Type and screen, automated (03/22/2017 11:29 AM) Only the most recent of 3 results within the time period is included. Component Value Ref Range ABO/RH AUTOMATED (BEAKER) A POSITIVE Ab Scrn NEGATIVE Specimen Performing Laboratory Blood - Arm, [address] [address] * B-type Natriuretic Factor (BNP) (03/22/2017 11:29 AM) Component Value Ref Range BNP 2627 (H) 0 - 100 pg/mL Specimen Performing Laboratory Blood - Arm, [address] [address] * Albumin (03/22/2017 11:29 AM) Component Value Ref Range Albumin 3.4 (L) 3.5 - 5.0 g/dL Specimen Performing Laboratory Blood - Arm, [address] [address] * ECG 12 lead (03/22/2017 10:45 AM) Only the most recent of 2 results within the time period is included. Specimen Performing Laboratory [facility]USE Narrative Ventricular Rate 80 BPM Atrial Rate 80 BPM P-R Interval 186 ms QRS Duration 104 ms Q-T Interval 384 ms QTC Calculation(Bazett) 442 ms P [place] 79 degrees R [place] 100 degrees T [place] -39 degrees Normal sinus rhythm Rightward axis [...] 384 ms QTC Calculation(Bazett) 442 ms P [place] 79 degrees R [place] 100 degrees T [place] -39 degrees Normal sinus rhythm Rightward axis [...] dissection (02/23/2017 10:03 AM) Specimen Performing Laboratory [employer] Narrative Addendum Begins REPORT STATUS:A ADDENDUM: Study reviewed by radiology. Agree with the nonvascular findings as described below. Signed: Shayne Gibson MD Report Verified Date/Time:02/23/2017 17:16:08 Reading Location: [facility] P048 Angio Body Reading Room Addendum Ends [...] 31.5 degrees. The angle of delivery is CENTRAL AFRICAN 7 CAR 4. The minimal and perpendicular [...] enlarged. The pancreas appears grossly unremarkable. The bishop paiute kidneys are not identified bilaterally. Correlate clinically. [...] 4.An addendum will be dictated by the Tank Car Repairer Radiologist regarding the nonvascular findings. Signed: Perez Rand MD Report Verified Date/Time:02/23/2017 12:22:19 Reading Location: [place] [address] Cardiology MRI Procedure Note Interface, External Ris In - 02/23/2017 5:18 PM CDT Addendum Begins REPORT STATUS:A ADDENDUM: Study reviewed by radiology. Agree with the nonvascular findings as described below. Signed: Shayne Gibson MD Report Verified Date/Time: 02/23/2017 17:16:08 Reading Location: [place] [address] Angio Body Reading Room Addendum Ends FINAL [...] 31.5 degrees. The angle of delivery is CENTRAL AFRICAN 7 CAR 4. The minimal and perpendicular [...] enlarged. The pancreas appears grossly unremarkable. The bishop paiute kidneys are not identified bilaterally. Correlate clinically. [...] An addendum will be dictated by the Tank Car Repairer Radiologist regarding the nonvascular findings. Signed: Perez Rand MD Report Verified Date/Time: 02/23/2017 12:22:19 Reading Location: [place] [address] Cardiology MRI * Calcium, Ionized (02/23/2017 3:54 AM) Only the most recent of 7 results within the time period is included. Component Value Ref Range Calcium, Ion 1.09 (L) 1.12 - 1.27 mmol/L pH, Blood 7.39 Specimen Performing Laboratory Blood [address] [address] * Phosphorus (02/23/2017 3:54 AM) Only the most recent of 7 results within the time period is included. Component Value Ref Range Phosphorus 3.9 2.3 - 4.7 mg/dL Specimen Performing Laboratory Blood [address] [address] * Magnesium (02/23/2017 3:54 AM) Only the most recent of 6 results within the time period is included. Component Value Ref Range Magnesium 2.0 1.6 - 2.6 mg/dL Specimen Performing Laboratory Blood [facility] [address] [address] * EKG-SCANNED (02/22/2017 12:20 PM) * Pulmonary Funct Lab Spirometry (02/21/2017 11:21 AM) Narrative Talon Andino, BRIAN, SIDE FRAMER 02/21/2017 11:21 AM [facility] PFT CHARTING REPORT Infection Control/Hand Hygiene procedures followed throughout the encounter with patient: Yes Patient Identification Method: Patient name verified on armband, and Medical record on armband, Is the order complete?: Yes Account ID#: [id number] Patient Name: Soumya Jones Birthdate: 1945 Age: [...] Ref Range Ejection Fraction Specimen Performing Laboratory [facility] ECHO HEART[facility] Impressions Right Impression 1. There is [...] SOUMYA JONES Date of Study 02/18/2017 JAMIE [id number] Age 72 Visit Number [id number] Gender Female Accession Number [id number] Date of 1945 Karely Robles MD Room Number 1022 Physician SonographaMdi Chinchilla. Jesse Samuel MD, [facility] Zachary Manio Procedure Type of Study: Cerebral: [...] Study 02/18/2017 JAMIE Age 72 Visit Number [id number] Gender Female Accession Number [id number] Date of 1945 Referring Lai Robles MD Room Number 1022 Physician Dry Lumber Grader Rogelio Karimi Interpreting Yasmani Samuel MD, RVS [...] contrast (02/17/2017 9:09 AM) Specimen Performing Laboratory [employer] FINAL REPORT CT OF THE ABDOMEN AND [...] MD Report Verified Date/Time:02/17/2017 10:10:39 Reading Location: [address] Radiology Reading Room Procedure Note Interface, [...] Report Verified Date/Time: 02/17/2017 10:10:39 Reading Location: [address] Radiology Reading Room * NM GI bleed study (02/16/2017 9:43 AM) Specimen Performing Laboratory [employer] Narrative FINAL REPORT PROCEDURE: HEMORRHAGE STUDY with RBCs CPT CODE: 08935 INDICATION: Gastrointestinal Bleeding PROTOCOL: 19.8 mCi ofTc-99m [...] MD Report Verified Date/Time:02/16/2017 10:07:39 Reading Location: [address] [address] Med Reading Room Procedure Note Interface, External Ris In - 02/16/2017 10:09 AM CDT FINAL REPORT PROCEDURE: HEMORRHAGE STUDY with RBCs CPT CODE: 54948 INDICATION: Gastrointestinal Bleeding PROTOCOL: 19.8 mCi of [...] Report Verified Date/Time: 02/16/2017 10:07:39 Reading Location: [address] Reading Room * REPORT OF PROCEDURE - ENDOSCOPY URL (02/14/2017 3:02 PM) * Hemoglobin and hematocrit (02/14/2017 10:06 AM) Only the most recent of 3 results within the time period is included. Component Value Ref Range Hemoglobin 8.7 (L) 11.2 - 15.7 GM/DL Hematocrit 27.5 (L) 34.1 - 44.9 % Specimen Performing Laboratory Blood - Arm, [place] [address] * CBC (Hemogram only) (02/14/2017 5:11 AM) [...] Performing Laboratory Blood - Arm, Right [facility] [address] [address] * Transthoracic echo result (02/13/2017 8:42 PM) Component Value Ref Range Ejection Fraction Specimen Performing Laboratory [facility] ECHO HEARTLAB [facility] Narrative Transthoracic Echocardiography Report (TTE) Demographics Patient Name TRELL Saeed Date of Study 02/13/2017 [id number] Gender Female Visit Number Race Unknown [id number] Room Number 1546 Number Date of Birth1945Referring Physician Travis Hoyt MD Age72 year(s)Dry Lumber Grader Carroll Canchola Interpreting Roman Berrios, Physician Fellow [...] . Severe MR by regurgitation volume assessment. Rzexrgzs-cc-ggzlwo tricuspid regurgitation (hepatic vein systolic flow reversal, [...] Valve Severe MR by regurgitation volume assessment. Chhj-wb-mykgyxir MV leaflet thickening. The mechanism for MR is leaflet tethering MV calcification is prominent in the posterior leaflet . Tricuspid ValveMild TV leaflet thickening. Estimated peak systolic PA pressure is 55-60 mmHg . Uhqrvvhf-ao-rbgufi tricuspid regurgitation (hepatic vein systolic flow reversal, [...] Physician Travis Hoyt MD Age 72 year(s) Dry Lumber Grader Carroll Berrios, Physician Fellow BUCKY Marquez Procedure Type [...] . Severe MR by regurgitation volume assessment. Uzwzawqm-ru-dcvhmg tricuspid regurgitation (hepatic vein systolic flow reversal, [...] Valve Severe MR by regurgitation volume assessment. Ersv-xp-cowfukua MV leaflet thickening. The mechanism for MR is leaflet tethering MV calcification is prominent in the posterior leaflet . Tricuspid Valve Mild TV leaflet thickening. Estimated peak systolic PA pressure is 55-60 mmHg . Hlomhydu-xu-edplkg tricuspid regurgitation (hepatic vein systolic flow reversal, [...] mmHg TR Mean Velocity: 2.19 m/s after 10/27/2016
--- OUTSIDE RECORDS SUMMARY | 2017-10-28 07:39 | XMS REPORT | Continuity of Care Document ---
Author Author [facility] Organization [facility] Address [address] [facility] [place] [address] Phone Unavailable Care Team Providers Care Grocery Sacker Name Role Phone STANLEY HEATON MD PCP Insurance Providers Guarantor Jeff Jones Address [address] [place] [address] Email [email or web address] Payer [place] Policy Number [id number] Subscriber's Name Jeff Jones Relationship 18 Self / Same As Patient Group Number [id number] Group Name [employer] - Medicare Advantage Divis Effective Date 17 Advance Directives Directive Response Recorded Date/Time Does the patient have an advance directive? No 08/21/17 5:58pm If yes, is advance directive on file with [facility]? No 02/09/17 10:30pm If not on file with [facility] will patient provide a copy? No 02/09/17 10:30pm Do you have a Directive to Physician? No 09/12/17 8:02am Do you have a Medical Power of Packaging Operator? No 09/12/17 8:02am Do you have an out of hospital Do Not Resuscitate Order? No 09/12/17 8:02am Do you have any special needs we should be aware of? No 09/12/17 8:02am Do you have a support person here with you today? Yes 09/12/17 8:02am Did patient receive Notice of Privacy Practices? Yes 09/12/17 8:02am Did patient receive patient rights and responsibilities? Yes 09/12/17 8:02am Problems Medical Problem Onset Date Status Abdominal [...] Unit Capsule, 400 Units Oral Daily Discontinued Idt276or 500 Mg Tab, 500 Mg Oral Bid@,07/08/14 Discontinued Clonidine Hcl (Catapres) 0.1 Mg Tablet, 0.1 Mg Oral At Bedtime Discontinued Cyanocobalamin (Vitamin B-12) (Vitamin B-12) 500 Mcg Tablet, 500 Mcg Oral Daily Discontinued Cyanocobalamin/Folic Acid (Vitamin W73-Qhzzp Acid Tablet) 1 Each Tablet, 1 Tab [...] Applicable Smoking Status Start Date Stop Date Never Smoker Hospital Discharge Instructions No hospital discharge instruction information available. Plan of Care Discharge Date 09/12/17 9:29am Disposition HOME, SELF-CARE Condition at Discharge Stable Instructions/Education Provided Fall Prevention Forms Provided Work/School Excuse Prescriptions See Medication Section Referrals STANLEY HEATON MD Address: [address] [place] [address], [place] [address] Additional Instructions/Education follow up with pcp Functional Status No functional status information available. Allergies, Adverse Reactions, Alerts Allergen Type Severity Reaction Status Last Updated Sulfa (Sulfonamide Antibiotics) Allergy Unknown RASH Active 09/12/17 Nifedipine Allergy Unknown Active 09/12/17 Amlodipine Allergy Unknown Active 09/12/17 Clonidine Allergy Unknown ALLERGIC TO CLONIDINE PATCH Active 09/12/17 CLONIDINE PATCH Allergy Unknown Active 06/11/16 SURGICAL [...] Pressure 106/56 mm Hg 08/23/2017 12:00pm Height 10 ft 2 in 09/12/2017 7:53am Weight 158 lb 09/12/2017 7:53am Body Mass Index 7.5 kg/m^2 09/12/2017 7:53am Results Laboratory Results Test Name Result Units [...] with a HCV Nucleic Acid Amplification test (057605). Testing performed by: [facility] [address] Dir: Cole Huerta MD White Blood Count [...] 70-120 08/23/2017 11:42am 08/23/2017 12:10pm Meter ID: [id number] Total Bilirubin 1.0 mg/dL 0.2-1.2 08/23/2017 5:53am [...] 5:46am 08/23 6:07am Performed at: [facility] [address] [id number] Senior It Security Analyst: Cole Huerta MD, Phone: [phone] Procedures Procedure Status Date Provider(s) Unsched dialysis ESRD pt hos Completed 02/03/17 MAYNOR MARTIN MD PERFORMANCE OF URINARY FILTRATION, SINGLE Completed 02/11/17 DEVYN MEHTA TRANSFUSE NONAUT RED BLOOD CELLS IN CENTRAL VEIN, PERC Completed 02/10/17 DEVYN MEHTA PERFORMANCE OF URINARY FILTRATION, <6 HRS/DAY Completed 08/22/[address] of abdomen and pelvis without contrast Active 08/21/17 SHYANNE WASHINGTON STRATEGIC ACCOUNT MANAGER US gallbladder Active 08/21/17 SHYANNE WASHINGTON NP Computed tomography of brain without radiopaque contrast Active 09/12/[address] maxillofacial area wo contrast Active 09/12/17 ALBER BLANCO MD Encounters Encounter Location Arrival/Admit Date Discharge/Depart Date Attending Provider Departed Emergency [facility] 09/12/17 7:49am 9:29am ALBER BLANCO MD [facility]charged [facility]patient [facility] 08/21/17 4:09pm 08/23/17 1:35pm KETTY BEAR MD Discharged Inpatient [facility] 02/09/17 10:05pm 12:56pm KETTY BEAR MD Discharged Inpatient (obs) [facility] 02/03/17 12:10pm 2:15pm KETTY BEAR MD
[2017-10-28] MEDS ORDERED: SODIUM CHLORIDE 0.9% 1000ML 1,000 ML IV STA (07:59)
[2017-10-28] MEDS ORDERED: PANTOPRAZOLE 40 MG 10ML VIAL IV STA (07:59)
[2017-10-28] MEDS ORDERED: LOPERAMIDE HCL 2 MG CAP PO ONE (08:15)
[2017-10-28] MEDS ORDERED: ONDANSETRON HCL 4 MG ORAL DISINTEGRATING TAB PO ONE (08:15)
[2017-10-28] MEDS ORDERED: MORPHINE SULFATE 5 MG/ML VIAL IV ONE (08:15)
[2017-10-28] MEDS ORDERED: SODIUM CHLORIDE 0.9% 1000ML 1,000 ML ONE (08:42)
[2017-10-28 08:55] LABS: BASOPHILS # (AUTO) 0.1 (0.0-0.1); BASOPHILS % 0.7 % (0.0-1.0); EOSINOPHILS # (AUTO) 0.2 (0.0-0.4); EOSINOPHILS % 3.2 % (0.0-6.0); HEMOGLOBIN 11.3 g/dL (12.0-16.0); LYMPHOCYTES # (AUTO) 1.4 (1.0-3.2); LYMPHOCYTES % 18.8 % (18.0-39.1); MEAN CORPUSCULAR HEMOGLOBIN 28.3 pg (28-32); MEAN CORPUSCULAR HGB CONC 30.5 g/dL (31-35); MEAN CORPUSCULAR VOLUME 92.5 fL (81-99); MONOCYTES # (AUTO) 0.8 (0.2-0.8); MONOCYTES % 10.7 % (4.4-11.3); NEUTROPHILS # (AUTO) 4.8 (2.1-6.9); NEUTROPHILS % 66.3 % (38.7-80.0); PLATELET COUNT 326 x10e3/uL (140-360)
[2017-10-28] MEDS ORDERED: DIATRIZOATE MEGL/DIATRIZOA SOD 30 ML BTL PO ONE (08:56)
[2017-10-28] MEDS ORDERED: MORPHINE SULFATE 2 MG/ML SYR ONE (09:00)
[2017-10-28 09:14] LABS: ALBUMIN 2.7 g/dL (3.5-5.0); ALBUMIN/GLOBULIN RATIO 0.6 (0.8-2.0); ANION GAP 19.4 mmol/L (8-16); CALCIUM 9.2 mg/dL (8.4-10.2); CREATININE, SERUM 6.25 mg/dL (0.57-1.11); POTASSIUM 4.4 mmol/L (3.5-5.1)
--- NOTE | 2017-10-28 10:37 | Diagnostic Imaging Report ---
PROCEDURE: CHEST SINGLE (PORTABLE) COMPARISON: 02/09/2017, CT abdomen and pelvis without contrast 08/21/2017. INDICATIONS: EPIGASTRIC PAIN FINDINGS: Lungs remain well-inflated. No focal airspace consolidation, pleural effusion, or pneumothorax. Right hemidiaphragmatic eventration is unchanged. Stable mild enlargement of the cardiac silhouette with pulmonary venous congestion. No acute osseous abnormality. Unchanged left upper quadrant surgical clips. CONCLUSION: Stable mild cardiomegaly and pulmonary venous congestion relative to 02/09/2017. Dictated by: Sushant Nix M.D. on 10/28/2017 at 10:40 Electronically approved by: Sushant Nix M.D. on 10/28/2017 at 10:40
--- NOTE | 2017-10-28 11:01 | Diagnostic Imaging Report ---
PROCEDURE: CT ABDOMEN AND PELVIS WITHOUT CONTRAST TECHNIQUE: The abdomen and pelvis were scanned utilizing a multidetector helical scanner from the diaphragm to the lesser trochanter after the oral administration of Gastrografin. No intravenous contrast was administered per referring physician request. Coronal and sagittal multiplanar reformations were obtained. COMPARISON: 08/01/2017. INDICATIONS: ABDOMINAL PAIN FINDINGS: ABSENCE OF INTRAVENOUS CONTRAST DECREASES SENSITIVITY FOR DETECTION OF FOCAL LESIONS AND VASCULAR PATHOLOGY. LOWER THORAX: Aortic valve prosthesis. Linear opacity compatible with fibrotic change or subsegmental atelectasis in the lower lobes. Cardiomegaly... HEPATOBILIARY: No focal hepatic lesion or intrahepatic biliary ductal dilatation. Unchanged gallbladder distention with small radiopaque calculi in the dependent portion. No pericholecystic inflammation. SPLEEN: No splenomegaly. PANCREAS: No focal masses or ductal dilatation. ADRENALS: No adrenal nodules. KIDNEYS/URETERS: Bilateral nephrectomies. PELVIC ORGANS/BLADDER: Cystectomy. PERITONEUM / RETROPERITONEUM: No ascites or mark pneumoperitoneum. Diffuse mesenteric edema unchanged. LYMPH NODES: No pelvic sidewall, retroperitoneal, or mesenteric lymphadenopathy. Postsurgical changes probably related to pelvic lymph node dissection. VESSELS: Status post endovascular repair of abdominal aortic aneurysm. The aneurysm sac measures 5.7 cm in diameter, unchanged. Presence of endoleak cannot be ascertained in the absence of intravenous contrast. GI TRACT: The large bowel is notable for diffuse wall thickening and adjacent inflammatory change. Status post right hemicolectomy. No small bowel dilatation to suggest obstruction. BONES AND SOFT TISSUES: Anasarca. No osseous destructive lesions. IMPRESSION: Status post right hemicolectomy with findings again suggestive of infectious or inflammatory colitis involving the residual transverse, descending, and sigmoid colon. No mark pneumoperitoneum. Stable size of abdominal aortic aneurysm status post endovascular repair. Stable cholelithiasis and gallbladder distention. Dictated by: Sushant Nix M.D. on 10/28/2017 at 11:04 Electronically approved by: Sushant Nix M.D. on 10/28/2017 at 11:04
[2017-10-28] MEDS ORDERED: CEFEPIME HCL 1 GM VIAL IV SCH (12:15)
[2017-10-28] MEDS ORDERED: SODIUM CHLORIDE FLUSH 10 ML SYR INJ PRN (12:15)
[2017-10-28] MEDS ORDERED: ONDANSETRON HCL INJ 2 MG/ML VIAL IV PRN (12:15)
[2017-10-28] MEDS ORDERED: MORPHINE SULFATE 2 MG/ML SYR IV PRN (12:30)
[2017-10-28] MEDS ORDERED: CEFTRIAXONE SOD 1 GM VIAL IM ONE (12:30)
[2017-10-28] MEDS: CEFTRIAXONE SOD 1 GM VIAL IV SCH (13:01)
[2017-10-28] MEDS: MORPHINE SULFATE 2 MG/ML SYR IV PRN (13:52)
--- OUTSIDE RECORDS SUMMARY | 2017-10-28 14:49 | XMS REPORT | Clinical Summary ---
Author Author CLAUDIA [facility] Address Unknown Phone Unavailable Care Team Providers Care Hourly Manager Name Role Phone PCP Unavailable Allergies Active [...] HTN (hypertension) ESRD (end stage renal disease) ([facility]) Chronic a-fib ([facility]) Aortic valvar stenosis Anemia CAD (coronary artery disease) Bladder cancer ([facility]) Hypothyroidism Encounters Date Type Specialty Care Team Description 03/24/2017 [facility] Cardiac Intensive Care Mihai Howard, Nonrheumatic aortic valve - Encounter MD stenosis 03/25/2017 03/24/2017 Anesthesia Shahram Velásquez, AA Event 03/24/2017 Procedure Pass 03/24/2017 Surgery Mihai Howard, TAVR / HA MCR - IP MD PROC ONLY 03/22/2017 [facility] Mihai Howard, Aortic valve stenosis, Encounter MD etiology of cardiac valve disease unspecified 03/22/2017 Orders Only General Internal Medicine 02/25/2017 Documentation Nephrology Maya Gamez MD 02/16/2017 Procedure Pass 02/16/2017 Surgery Travis Hoyt MD L CATH & CORONARY ANGIOS 02/15/2017 Procedure Pass Gastroenterology 02/14/2017 Anesthesia Gastroenterology Dale Lam, Event SYSTEM DESIGNER 02/14/2017 Procedure Pass Gastroenterology 02/14/2017 Surgery Gastroenterology Amita Jacobson ENTEROSCOPY, SALVADOR Lucas MD OVERTUBE SMALL INTESTINE-UPPER 02/13/2017 [facility] Cardiology Dank Quiroz MD Gastrointestinal - Encounter Tiffany Duque hemorrhage, unspecified 02/23/2017 Migel Dolan, gastrointestinal hemorrhage type;Tobi Escamilla MD (shortness of breath);AF (paroxysmal atrial fibrillation) ([facility]);Secondary hypertension;ESRD (end stage renal disease) ([facility]);Hypothyroidism, unspecified type;Hyperlipidemia, unspecified hyperlipidemia type;ESRD (end stage renal disease) on dialysis ([facility]);Essential hypertension;Nonrheumatic aortic valve stenosis;Non-rheumatic mitral regurgitation [...] Not on file Implants Implanted Type Area Vp Digital Marketing Device Expiration Model / Identifier Date Serial / Lot Device Clsr Angio-Seal Vip 6fr Cardiovasc Left: [employer] 12/27/2017 [id number] / [id number] - [id number] isabella Beckwith MED:CARDIAC / Implanted: Qty: 1 on 03/24/2017 by [id number] Mihai Howard MD Closure Sys Perclose Progl 6fr Cardiovasc Right: DE SOTO LAB:VASC 57631-57 / [id number] - [id number] isabella Beckwith DEV / Implanted: Qty: 2 on 03/24/2017 by [id number] Mihai Howard MD Device Clsr Angio-Seal Vip 6fr Cardiovasc Right: [employer] 02/27/2020 [id number] / [id number] - [id number] isabella Beckwith MED:CARDIAC / Implanted: Qty: 1 on 03/24/2017 by SURG [id number] Mihai Hwoard MD Valve Aortic 26 [id number] - Valves MEDTRONIC:STRUC 11/03/2019 EVOLUTR-26 [id number] TURAL HEART -US / Implanted: Qty: 1 on 03/24/2017 by [id number] / Mihai Howard MD Procedures Procedure Name [...] Ref Range Ejection Fraction Specimen Performing Laboratory [facility] ECHO HEARTLAB MKCKESSON CPA Narrative Transthoracic Echocardiography Report (TTE) Demographics Patient Name Javid JONES of Study 03/25/2017 BLEYL [id number] Female Visit Number [id number] Unknown [id number] Room Number 6217 Number Date of Birth1945Referring Physician Anita Jerome Age72 year(s)Pin Game Machine Inspector Emeli Rizvi, [facility] AnalystAlex Jeremiah Interpreting Zaire Chery MD Physician Procedure Type of Study TTE procedure:2DECHO W DOPPLER(CW/PW/COLOR) (Routine) Indications:Initial post operative evaluation of prosthetic valve. Clinical History HGB 9.7 HCT 32.1 % AbdAoAneurysm. , A-fib, ESRD, HTN, NH, CAD s/p ABC x 3 (2009) s/p [...] Study 03/25/2017 JAMIE Gender Female Visit Number [id number] Race Unknown Room Number 6217 Number Date of 1945 Referring Physician Anita Jerome Age 72 year(s) Pin Game Machine Inspector Emeli Rizvi RDCS Engineering Manager Yves Daniels Interpreting Zaire Chery MD Physician Procedure Type of Study TTE procedure:2DECHO W DOPPLER(CW/PW/COLOR) (Routine) Indications:Initial post operative evaluation of prosthetic valve. Clinical History HGB 9.7 HCT 32.1 % AbdAoAneurysm. , A-fib, ESRD, HTN, NH, CAD s/p ABC x 3 (2009) s/p [...] Nonreactive Specimen Performing Laboratory Blood - Arm, [place] [address] * CBC with platelet count + automated [...] 1 % Granulocytes-Relative Specimen Performing Laboratory Blood [address] [address] * Daily Prothrombin time/INR while on warfarin (03/25/2017 3:56 AM) Only the most recent of 5 results within the time period is included. Component Value Ref Range Protime 15.6 (H) 11.7 - 14.7 seconds INR 1.3 <=5.9 Specimen Performing Laboratory Blood [address] [address] Narrative RECOMMENDED COUMADIN/WARFARIN INR THERAPY RANGES STANDARD [...] --------- - ------ CBC with platelet count ...[[id number]]AbnormalFinal result Please view results for these tests [...] FOR DIALYSIS PATIENTS. Specimen Performing Laboratory Blood [address] [address] * Prepare Leuko-Red RBC (03/24/2017 2:39 PM) Only the most recent of 3 results within the time period is included. Component Value Ref Range CROSSMATCH COMPATIBLE Unit ABO A Pos UNIT NUMBER [id number] Status RETURNED FROM ISSUE Blood Bank Product RED BLOOD CELLS PRODUCT CODE S9294W68 CROSSMATCH COMPATIBLE Unit ABO A Pos UNIT NUMBER [id number] Status RETURNED FROM ISSUE Blood Bank Product RED BLOOD CELLS PRODUCT CODE G0702Y99 CROSSMATCH COMPATIBLE Unit ABO A Pos UNIT NUMBER [id number] Status RETURNED FROM ISSUE Blood Bank Product RED BLOOD CELLS PRODUCT CODE L0877A95 CROSSMATCH COMPATIBLE Unit ABO A Pos UNIT NUMBER [id number] Status RETURNED FROM ISSUE Blood Bank Product RED BLOOD CELLS PRODUCT CODE L3634I34 Specimen Performing Laboratory Other [place] * POC ACTIVATED CLOTTING TIME (03/24/2017 1:45 PM) Only the most recent of 3 results within the time period is included. Component Value Ref Range Activated Clotting Time 136Comment: TESTED AT [address] [address] Specimen Performing Laboratory Blood [address] [address] * Transesophageal echo (03/24/2017 11:44 AM) Only the most recent of 2 results within the time period is included. Component Value Ref Range Ejection Fraction Specimen Performing Laboratory [facility]CHO HEART[facility] MKCKESSON [facility] Narrative Transesophageal Echocardiography Report (ANGEL) Demographics Patient NameSOUMYA JONES Date of Study03/24/2017 BLEYL Gender Female Visit [id number] Race Unknown [id number] Number Date of 1945 Referring Physician Age 72 year(s) Pin Game Machine Inspector Maria Luisa Dias [facility] Interpreting [facility] Needs to be Pre Physician Read Roman Berrios MD FellowBUCKY Palumbo Procedure Type of Study ANGEL procedure:TRANSESOPHAGEAL ECHO (STAT) Indications:TAVR. Clinical History AAA, Anemia, , Arrhythmia, AFib, Bladder Cancer, Obesity, CAD, ESRD, GIB (05/2016), Murmur, HTN, Hypotension, Hypothyroid, NH, CABG x 3 (2009), Cath (01/2017) Height: [...] Study 03/24/2017 JAMIE Gender Female Visit Number [id number] Race Unknown Room Number 6217 Number Date of 1945 Referring Physician Age 72 year(s) Pin Game Machine Inspector Maria Luisa Dias RDCS Interpreting [facility]SC Needs to be Pre Physician Read Roman Berrios MD Fellow BUCKY Palumbo Procedure Type of Study ANGEL procedure:TRANSESOPHAGEAL ECHO (STAT) Indications:TAVR. Clinical History AAA, Anemia, , Arrhythmia, AFib, Bladder Cancer, Obesity, CAD, ESRD, GIB (05/2016), Murmur, HTN, Hypotension, Hypothyroid, NH, CABG x 3 (2009), Cath (01/2017) Height: [...] meq/L Specimen Performing Laboratory Blood, Arterial [facility] [address] [address] * Type and screen, automated (03/22/2017 11:29 AM) Only the most recent of 3 results within the time period is included. Component Value Ref Range ABO/RH AUTOMATED (BEAKER) A POSITIVE Ab Scrn NEGATIVE Specimen Performing Laboratory Blood - Arm, [address] [address] * B-type Natriuretic Factor (BNP) (03/22/2017 11:29 AM) Component Value Ref Range BNP 2627 (H) 0 - 100 pg/mL Specimen Performing Laboratory Blood - Arm, [address] [address] * Albumin (03/22/2017 11:29 AM) Component Value Ref Range Albumin 3.4 (L) 3.5 - 5.0 g/dL Specimen Performing Laboratory Blood - Arm, [address] [address] * ECG 12 lead (03/22/2017 10:45 AM) Only the most recent of 2 results within the time period is included. Specimen Performing Laboratory GE MUSE Narrative Ventricular Rate 80 BPM Atrial Rate 80 BPM P-R Interval 186 ms QRS Duration 104 ms Q-T Interval 384 ms QTC Calculation(Bazett) 442 ms P [place] 79 degrees R [place] 100 degrees T [place] -39 degrees Normal sinus rhythm Rightward axis [...] 384 ms QTC Calculation(Bazett) 442 ms P [place] 79 degrees R [place] 100 degrees T [place] -39 degrees Normal sinus rhythm Rightward axis [...] dissection (02/23/2017 10:03 AM) Specimen Performing Laboratory Context Labs Narrative Addendum Begins REPORT STATUS:A ADDENDUM: Study reviewed by radiology. Agree with the nonvascular findings as described below. Signed: Shayne Gibson MD Report Verified Date/Time:02/23/2017 17:16:08 Reading Location: [facility] P048 Angio Body Reading Room Addendum [...] 31.5 degrees. The angle of delivery is WALLISIAN 7 CAR 4. The minimal and perpendicular [...] enlarged. The pancreas appears grossly unremarkable. The [place] kidneys are not identified bilaterally. Correlate clinically. [...] 4.An addendum will be dictated by the Psych Arnp Radiologist regarding the nonvascular findings. Signed: Perez Rand MD Report Verified Date/Time:02/23/2017 12:22:19 Reading Location: [place] [address] Cardiology MRI Procedure Note Interface, External Ris In - 02/23/2017 5:18 PM CDT Addendum Begins REPORT STATUS:A ADDENDUM: Study reviewed by radiology. Agree with the nonvascular findings as described below. Signed: Shayne Gibson MD Report Verified Date/Time: 02/23/2017 17:16:08 Reading Location: [place] [address] Angio Body Reading Room Addendum Ends FINAL [...] 31.5 degrees. The angle of delivery is WALLISIAN 7 CAR 4. The minimal and perpendicular [...] enlarged. The pancreas appears grossly unremarkable. The [place] kidneys are not identified bilaterally. Correlate clinically. [...] An addendum will be dictated by the Psych Arnp Radiologist regarding the nonvascular findings. Signed: Perez Radn MD Report Verified Date/Time: 02/23/2017 12:22:19 Reading Location: [place] [address] Cardiology MRI * Calcium, Ionized (02/23/2017 3:54 AM) Only the most recent of 7 results within the time period is included. Component Value Ref Range Calcium, Ion 1.09 (L) 1.12 - 1.27 mmol/L pH, Blood 7.39 Specimen Performing Laboratory Blood [address] [address] * Phosphorus (02/23/2017 3:54 AM) Only the most recent of 7 results within the time period is included. Component Value Ref Range Phosphorus 3.9 2.3 - 4.7 mg/dL Specimen Performing Laboratory Blood [address] [address] * Magnesium (02/23/2017 3:54 AM) Only the most recent of 6 results within the time period is included. Component Value Ref Range Magnesium 2.0 1.6 - 2.6 mg/dL Specimen Performing Laboratory Blood [facility] [address] [address] * EKG-SCANNED (02/22/2017 12:20 PM) * Pulmonary Funct Lab Spirometry (02/21/2017 11:21 AM) Narrative Talon Andino, BRIAN, LEARNING AND DEVELOPMENT ASSISTANT 02/21/2017 11:21 AM [facility] PFT CHARTING REPORT Infection Control/Hand Hygiene procedures followed throughout the encounter with patient: Yes Patient Identification Method: Patient name verified on armband, and Medical record on armband, Is the order complete?: Yes Account ID#: [id number] Patient Name: Soumya Jones Birthdate: 1945 Age: [...] Ref Range Ejection Fraction Specimen Performing Laboratory [facility] ECHO HEARTLAB MKCKESSON [facility] Impressions Right Impression 1. There is [...] SOUMYA JONES Date of Study 02/18/2017 JAMIE [id number] Age 72 Visit Number [id number] Gender Female Accession Number [id number] Date of 1945 Karely Robles MD Room Number 1022 Physician SonographMadi Chinchilla. Jesse Samuel MD, [facility] Centers[facility] Zachary Manio Procedure Type [...] Study 02/18/2017 JAMIE Age 72 Visit Number [id number] Gender Female Accession Number [id number] Date of 1945 Referring Lai Robles MD Room Number 1022 Physician Pin Game Machine Inspector Rogelio Karimi Interpreting Yasmani Samuel MD, RVS [...] contrast (02/17/2017 9:09 AM) Specimen Performing Laboratory [facility] FINAL REPORT CT OF THE ABDOMEN AND [...] MD Report Verified Date/Time:02/17/2017 10:10:39 Reading Location: [address] Radiology Reading Room Procedure Note Interface, [...] Report Verified Date/Time: 02/17/2017 10:10:39 Reading Location: [address] Radiology Reading Room * NM GI bleed study (02/16/2017 9:43 AM) Specimen Performing Laboratory Context Labs Narrative FINAL REPORT PROCEDURE: HEMORRHAGE STUDY with RBCs CPT CODE: 24467 INDICATION: Gastrointestinal Bleeding PROTOCOL: 19.8 mCi ofTc-99m [...] MD Report Verified Date/Time:02/16/2017 10:07:39 Reading Location: [address] [address] Procedure Note Interface, External Ris In - 02/16/2017 10:09 AM CDT FINAL REPORT PROCEDURE: HEMORRHAGE STUDY with RBCs CPT CODE: 16858 INDICATION: Gastrointestinal Bleeding PROTOCOL: 19.8 mCi of [...] Report Verified Date/Time: 02/16/2017 10:07:39 Reading Location: [address] Reading Room * REPORT OF PROCEDURE - ENDOSCOPY URL (02/14/2017 3:02 PM) * Hemoglobin and hematocrit (02/14/2017 10:06 AM) Only the most recent of 3 results within the time period is included. Component Value Ref Range Hemoglobin 8.7 (L) 11.2 - 15.7 GM/DL Hematocrit 27.5 (L) 34.1 - 44.9 % Specimen Performing Laboratory Blood - Arm, [place] [address] * CBC (Hemogram only) (02/14/2017 5:11 AM) [...] Performing Laboratory Blood - Arm, Right [facility] [address] [address] * Transthoracic echo result (02/13/2017 8:42 PM) Component Value Ref Range Ejection Fraction Specimen Performing Laboratory [facility] ECHO HEARTLAB MKCKESSON CPACS Narrative Transthoracic Echocardiography Report (TTE) Demographics Patient Name TRELL Saeed Date of Study 02/13/2017 [id number] Gender Female Visit Number Race Unknown [id number] Room Number 1546 Number Date of Birth1945Referring Physician Travis Hoyt MD Age72 year(s)Pin Game Machine Inspector Carroll Canchola Interpreting Roman Berrios, Physician Fellow [...] . Severe MR by regurgitation volume assessment. Moetthgb-vd-bxrwlg tricuspid regurgitation (hepatic vein systolic flow reversal, [...] Valve Severe MR by regurgitation volume assessment. Vxvs-pu-hteywmex MV leaflet thickening. The mechanism for MR is leaflet tethering MV calcification is prominent in the posterior leaflet . Tricuspid ValveMild TV leaflet thickening. Estimated peak systolic PA pressure is 55-60 mmHg . Bkduxqmc-wp-bfqeie tricuspid regurgitation (hepatic vein systolic flow reversal, [...] Physician Travis Hoyt MD Age 72 year(s) Pin Game Machine Inspector Carroll Berrios, Physician Fellow BUCKY Marquez Procedure [...] . Severe MR by regurgitation volume assessment. Sdzbmsan-ii-pphivn tricuspid regurgitation (hepatic vein systolic flow reversal, [...] severely dilated. Aortic Valve Severe aortic stenosis. ZORHEH=0.9cm2. Mean Aov gradient=24mmHg. There is no aortic regurgitation. Moderate AoV cusp calcification. Moderate AoV cusp calcification. AoV cusp mobility is severely decreased . Mitral Valve Severe MR by regurgitation volume assessment. Thxi-wm-hytioggo MV leaflet thickening. The mechanism for MR is leaflet tethering MV calcification is prominent in the posterior leaflet . Tricuspid Valve Mild TV leaflet thickening. Estimated peak systolic PA pressure is 55-60 mmHg . Ptgnljqr-df-luxblw tricuspid regurgitation (hepatic vein systolic flow reversal, [...]
[2017-10-28 15:38] VITALS: BP 100/55
[2017-10-28 15:39] VITALS: BP 120/60
[2017-10-28 15:42] VITALS: BP 120/60
[2017-10-28] MEDS ORDERED: MIDODRINE HCL2.5 MG PO ×2 (17:12→17:16)
[2017-10-28] MEDS ORDERED: LIDOCAINE TOP (18:01)
[2017-10-28 20:00] VITALS: BP 110/58
--- NOTE | 2017-10-28 20:02 | Consultation ---
DATE OF CONSULTATION: October 28, 2017 HISTORY OF PRESENT ILLNESS: A 72-year-old female who presented with abdominal pain. She is an end-stage renal disease patient of [facility], scheduled for dialysis today. Has multiple medical problems including ischemic cardiomyopathy, history of CHF, history of coronary artery disease, hypothyroidism, hyperlipidemia, end-stage renal disease, anemia and secondary hypoparathyroidism, prior GI bleed, history of inflammatory bowel disease i.e. ulcerative colitis, history of prior nephrectomy, bladder resection, urostomy placement, history of coronary artery bypass surgery, history of ablation of SVT and aneurysm repair. Currently awake, alert and sitting up and in no apparent distress. Dialysis nurse has been contacted. She is on her way. ALLERGIES: TO CLONIDINE PATCH, SURGICAL TAPE, SULFA, AMLODIPINE, CLONIDINE AND NIFEDIPINE. CURRENT MEDICATIONS: Please see MAR. She is on ondansetron p.r.n., Zofran p.r.n., ceftriaxone 1 gram IV q.12. She is on loperamide 4 mg 1 time dose, morphine, she received 1 time dose. Pantoprazole 40 mg IV daily. SOCIAL HISTORY: Does not smoke or drink. FAMILY HISTORY: Significant for hypertension. PHYSICAL EXAMINATION: GENERAL: Awake, alert and lying supine. No apparent distress. VITALS: Blood pressure 104/54. Pulse is 78. Afebrile. HEAD AND NECK: Cornea clear. Oral mucosa dry. Neck veins flat. LUNGS: With bibasilar rales. HEART: S1 and S2 audible. ABDOMEN: Otherwise soft and nontender. LOWER EXTREMITY EXAMINATION: Shows no edema. IMPRESSION AND PLAN: Multiple comorbid conditions, end-stage renal disease presented with abdominal pain, currently asymptomatic, has stable cholelithiasis and gallbladder distention. CT scan she is prior status post right hemicolectomy. Plan on consulting general surgery for her gallstones and gallbladder distension. Arrange for dialysis. Please see orders. Job#: [id number]
[2017-10-29] VITALS (8 sets, daily range): BP systolic 85–133; BP diastolic 42–60
[2017-10-29] MEDS: CEFTRIAXONE SOD 1 GM VIAL IV SCH (02:00)
[2017-10-29 07:38] LABS: BASOPHILS % 0.3 % (0.0-1.0); EOSINOPHILS # (AUTO) 0.1 (0.0-0.4); EOSINOPHILS % 1.3 % (0.0-6.0); HEMATOCRIT 33.9 % (34.2-44.1); HEMOGLOBIN 10.4 g/dL (12.0-16.0); LYMPHOCYTES # (AUTO) 0.8 (1.0-3.2); LYMPHOCYTES % 12.8 % (18.0-39.1); MEAN CORPUSCULAR HGB CONC 30.7 g/dL (31-35); MEAN CORPUSCULAR VOLUME 91.1 fL (81-99); MONOCYTES # (AUTO) 0.6 (0.2-0.8); MONOCYTES % 9.1 % (4.4-11.3); NEUTROPHILS # (AUTO) 4.8 (2.1-6.9); PLATELET COUNT 278 x10e3/uL (140-360); RED BLOOD COUNT 3.72 x10e6/uL (3.6-5.1); RED CELL DISTRIBUTION WIDTH 17.5 % (11.7-14.4)
[2017-10-29 07:58] LABS: ALBUMIN 2.5 g/dL (3.5-5.0); ALBUMIN/GLOBULIN RATIO 0.6 (0.8-2.0); ANION GAP 13.9 mmol/L (8-16); CALCIUM 8.5 mg/dL (8.4-10.2); CREATININE, SERUM 4.43 mg/dL (0.57-1.11); POTASSIUM 3.9 mmol/L (3.5-5.1)
[2017-10-29] MEDS: PANTOPRAZOLE 40 MG 10ML VIAL IV SCH (08:20)
[2017-10-29 13:06] LABS: FOLATE 10.8 ng/mL (7.0-15.4)
[2017-10-29] MEDS ORDERED: MIDODRINE 2.5 MG TAB PO SCH (13:30)
[2017-10-29] MEDS: MORPHINE SULFATE 2 MG/ML SYR IV PRN (15:28)
--- NOTE | 2017-10-29 17:32 | History and Physical ---
CHIEF COMPLAINT: Abdominal pain. HISTORY OF PRESENT ILLNESS: This is a 72-year-old female with recurrent abdominal pain. CT scan shows some inflammation in the transverse and descending colon. She has a history of right hemicolectomy. The patient is otherwise stable. She has also had multiple abdominal surgeries previously. PAST MEDICAL HISTORY 1. End-stage renal disease on dialysis. 2. Hypertension. 3. Atrial fibrillation. 4. History of cardiac ablation. 5. Chronic anemia. 6. Multiple colonoscopies. 7. Hypothyroidism. 8. History of ulcerative colitis. 9. Congestive heart failure. 10. SVT. 11. Aneurysm repair. 12. Urinary bladder surgery. 13. Aortic valve replacement. 14. Coronary artery bypass surgery due to coronary disease. 15. Cystectomy and bilateral nephrectomy. SOCIAL HISTORY: Patient does not smoke or use alcohol. No recreational drugs. ALLERGIES: CLONIDINE, SURGICAL TAPE, SULFA, NORVASC, NIFEDIPINE. REVIEW OF SYSTEMS: Abdominal pain with occasional nausea and vomiting. Recent diarrhea but not now. PHYSICAL EXAMINATION VITAL SIGNS: Temperature 98. Blood pressure 128/58. Pulse rate 72. Respirations 18. GENERAL: The patient is not in acute distress. Awake. HEENT: Normocephalic, atraumatic. Anicteric. NECK: Supple grossly. PULMONARY: Clear. CARDIOVASCULAR: Regular rate and rhythm. ABDOMEN: Multiple surgical scars. Tenderness, but without any guarding or rebound. EXTREMITIES: No cyanosis or edema. NEUROLOGIC: No focal deficit. CT of the abdomen and pelvis showed that the patient is status post right hemicolectomy. There is inflammation suggestive of either infectious or inflammatory colitis involving the residual transverse, descending and sigmoid colon. No pneumoperitoneum. Stable cholelithiasis and gallbladder distention without any acute infection. LABORATORY: Sodium 139, potassium 3.9, chloride 99, bicarb 30, BUN 28, creatinine 4.4. Glucose 87. WBC 6.2, hemoglobin 10.4, hematocrit 33.9, platelets 278. IMPRESSION 1. Generalized abdominal pain, chronic. There is inflammation in the transverse, descending and sigmoid colon, either infectious or inflammatory process. 2. Multiple chronic baseline problems. PLAN: Suggest the patient to have some supplement. Continue with current treatment. Consultation with GI and surgery per patient's request. Will monitor the patient closely at this time. KETTY BEAR MD Job#: [id number] MH
[2017-10-29] MEDS: ASPIRIN 81 MG CHEW TAB PO SCH (20:55)
[2017-10-30] VITALS (8 sets, daily range): BP systolic 115–143; BP diastolic 55–80
[2017-10-30] MEDS ORDERED: LEVOTHYROXINE SODIUM 100 MCG TAB PO SCH (06:00)
[2017-10-30] MEDS: PANTOPRAZOLE 40 MG 10ML VIAL IV SCH (08:30)
[2017-10-30] MEDS: AMIODARONE HCL 200 MG TAB PO SCH (08:31)
[2017-10-30] MEDS: CLOPIDOGREL BISULFATE 75 MG TAB PO SCH (08:31)
[2017-10-30] MEDS ORDERED: CEFTRIAXONE SOD 1 GM VIAL IV SCH (09:00)
[2017-10-30] MEDS: LEVOFLOXACIN 250 MG TAB PO SCH (12:20)
[2017-10-30] MEDS: METRONIDAZOLE 500 MG TAB PO SCH ×2 (12:20→17:29)
[2017-10-30] MEDS: MORPHINE SULFATE 2 MG/ML SYR IV PRN (15:13)
[2017-10-30] MEDS: ASPIRIN 81 MG CHEW TAB PO SCH (20:35)
[2017-10-31] VITALS: BP 129/58
[2017-10-31 04:00] VITALS: BP 111/58
[2017-10-31] MEDS: LEVOTHYROXINE SODIUM 100 MCG TAB PO SCH (05:13)
[2017-10-31] MEDS: AMIODARONE HCL 200 MG TAB PO SCH (08:43)
[2017-10-31 08:45] VITALS: BP 120/58
[2017-10-31] MEDS: METRONIDAZOLE 500 MG TAB PO SCH ×2 (08:54→16:38)
[2017-10-31] MEDS: CLOPIDOGREL BISULFATE 75 MG TAB PO SCH (08:54)
[2017-10-31] MEDS: PANTOPRAZOLE 40 MG 10ML VIAL IV SCH (08:54)
[2017-10-31 09:03] LABS: BASOPHILS % 0.3 % (0.0-1.0); EOSINOPHILS # (AUTO) 0.5 (0.0-0.4); EOSINOPHILS % 6.7 % (0.0-6.0); HEMATOCRIT 31.8 % (34.2-44.1); HEMOGLOBIN 10.1 g/dL (12.0-16.0); LYMPHOCYTES # (AUTO) 0.8 (1.0-3.2); LYMPHOCYTES % 11.5 % (18.0-39.1); MEAN CORPUSCULAR HEMOGLOBIN 28.2 pg (28-32); MEAN CORPUSCULAR HGB CONC 31.8 g/dL (31-35); MEAN CORPUSCULAR VOLUME 88.8 fL (81-99); MONOCYTES # (AUTO) 0.5 (0.2-0.8); MONOCYTES % 7.4 % (4.4-11.3); NEUTROPHILS # (AUTO) 5.1 (2.1-6.9); NEUTROPHILS % 73.7 % (38.7-80.0); PLATELET COUNT 208 x10e3/uL (140-360); RED BLOOD COUNT 3.58 x10e6/uL (3.6-5.1); RED CELL DISTRIBUTION WIDTH 17.3 % (11.7-14.4)
[2017-10-31 09:21] LABS: ANION GAP 13.9 mmol/L (8-16); CALCIUM 8.4 mg/dL (8.4-10.2); CREATININE, SERUM 4.68 mg/dL (0.57-1.11); POTASSIUM 3.9 mmol/L (3.5-5.1)
[2017-10-31] MEDS: MORPHINE SULFATE 2 MG/ML SYR IV PRN (11:20)
[2017-10-31] MEDS: LEVOFLOXACIN 250 MG TAB PO SCH (11:36)
[2017-10-31 12:00] VITALS: BP 121/54
--- NOTE | 2017-10-31 15:58 | Discharge Summary ---
CONSULTANTS: Dr. Dong Vides, Dr. Dedrick Elder. Dr. Niles Neri. FINAL DIAGNOSES 1. Colitis. 2. Nausea and vomiting, resolved. 3. Diarrhea, resolved. SUMMARY: A 72-year-old female with extensive workup in the past. She does have some inflammatory process in the transverse and descending colon. No gross constipation or diarrhea. She did have some diarrhea previously. The patient is otherwise stable. She has been seen by Dr. Sheppard. Patient has been cleared by GI for discharge. She will go home with Flagyl and Levaquin for 5 days. Zofran as needed for nausea. Patient is otherwise stable. She will follow up with Dr. Marion in approximately 1 to 2 weeks. Job#: [id number] CARLY
--- NOTE | 2017-10-31 16:44 | Consultation ---
DATE OF CONSULTATION: CHIEF COMPLAINT: Abdominal pain. HISTORY OF PRESENT ILLNESS: A very pleasant 72-year-old lady coming with some diarrhea, abdominal pain. Had a CAT scan that showed some inflammation of the transverse and descending colon. She had a right hemicolectomy. She has multiple abdominal surgeries. She denies pain at this time. She denies diarrhea presently. PAST MEDICAL HISTORY: Atrial fibrillation; renal disease, on hemodialysis; congestive heart failure; aortic valve replacement. SOCIAL HISTORY: Patient has no toxic habits. ALLERGIES: CLONIDINE, SURGICAL TAPE, SULFA, NORVASC. REVIEW OF SYSTEMS: Abdominal pain with some nausea, not now. PHYSICAL EXAMINATION: VITAL SIGNS: Blood pressure 140/80, pulse 80, temperature 98. GENERAL: This is an elderly lady, in no distress. HEENT: No pallor. ABDOMEN: Soft, nontender. No masses. EXTREMITIES: No edema. ASSESSMENT AND PLAN: What appeared to be infectious colitis, patient improving. I would recommend to advance diet. Continue current medications. Discharge home soon. Thank you. Job#: [id number]
[2017-10-31 17:12] VITALS: BP 106/53
[2017-10-31 20:00] VITALS: BP 111/58
[2017-10-31] MEDS: ASPIRIN 81 MG CHEW TAB PO SCH (21:00)
[2017-11-01] VITALS: BP 100/70
[2017-11-01 04:00] VITALS: BP 122/68
[2017-11-01] MEDS: LEVOTHYROXINE SODIUM 100 MCG TAB PO SCH (05:15)
[2017-11-01] MEDS ORDERED: PEG (High)/E-LYTE SOLN 4,000 ML BTL PO ONE (07:00)
[2017-11-01] MEDS ORDERED: BISACODYL 5 MG TAB EC PO ONE (07:00)
[2017-11-01 07:52] VITALS: BP 120/58
[2017-11-01] MEDS: AMIODARONE HCL 200 MG TAB PO SCH (08:42)
[2017-11-01] MEDS: PANTOPRAZOLE 40 MG 10ML VIAL IV SCH (08:42)
[2017-11-01] MEDS: METRONIDAZOLE 500 MG TAB PO SCH ×2 (08:43→16:28)
[2017-11-01 09:00] VITALS: BP 120/58
[2017-11-01] MEDS: MORPHINE SULFATE 2 MG/ML SYR IV PRN ×2 (10:30→18:39)
[2017-11-01] MEDS: LEVOFLOXACIN 250 MG TAB PO SCH (11:51)
[2017-11-01 12:28] VITALS: BP 126/58
[2017-11-01 20:00] VITALS: BP 131/60
[2017-11-01] MEDS: ASPIRIN 81 MG CHEW TAB PO SCH (20:42)
[2017-11-02] VITALS (9 sets, daily range): BP systolic 107–123; BP diastolic 46–59
[2017-11-02] MEDS: LEVOTHYROXINE SODIUM 100 MCG TAB PO SCH (05:52)
[2017-11-02 05:59] LABS: BASOPHILS % 0.1 % (0.0-1.0); EOSINOPHILS # (AUTO) 0.3 (0.0-0.4); EOSINOPHILS % 3.7 % (0.0-6.0); HEMATOCRIT 32.6 % (34.2-44.1); HEMOGLOBIN 10.2 g/dL (12.0-16.0); LYMPHOCYTES # (AUTO) 1.2 (1.0-3.2); LYMPHOCYTES % 13.6 % (18.0-39.1); MEAN CORPUSCULAR HGB CONC 31.3 g/dL (31-35); MEAN CORPUSCULAR VOLUME 89.6 fL (81-99); MONOCYTES # (AUTO) 1.1 (0.2-0.8); MONOCYTES % 12.3 % (4.4-11.3); NEUTROPHILS # (AUTO) 6.3 (2.1-6.9); NEUTROPHILS % 69.9 % (38.7-80.0); PLATELET COUNT 222 x10e3/uL (140-360); RED BLOOD COUNT 3.64 x10e6/uL (3.6-5.1); RED CELL DISTRIBUTION WIDTH 17.5 % (11.7-14.4)
[2017-11-02 06:31] LABS: ALBUMIN 2.4 g/dL (3.5-5.0); ALBUMIN/GLOBULIN RATIO 0.6 (0.8-2.0); ALKALINE PHOSPHATASE 103 IU/L (40-150); ANION GAP 16.7 mmol/L (8-16); BLOOD UREA NITROGEN 39 mg/dL (7-26); BUN/CREATININE RATIO 6 (6-25); CALCIUM 8.8 mg/dL (8.4-10.2); CARBON DIOXIDE 28 mmol/L (22-29); CHLORIDE 93 mmol/L (98-107); CREATININE, SERUM 6.11 mg/dL (0.57-1.11); EST GLOMERULAR FILTRATION RATE 7 ML/MIN (60-); GLUCOSE 87 mg/dL (74-118); POTASSIUM 5.7 mmol/L (3.5-5.1); SODIUM 132 mmol/L (136-145)
[2017-11-02 06:46] LABS: ALANINE AMINOTRANSFERASE < 6 IU/L (0-55)
[2017-11-02] MEDS: MORPHINE SULFATE 2 MG/ML SYR IV PRN ×2 (07:35→18:00)
[2017-11-02] MEDS: METRONIDAZOLE 500 MG TAB PO SCH ×2 (09:00→17:14)
[2017-11-02] MEDS: AMIODARONE HCL 200 MG TAB PO SCH (09:00)
[2017-11-02] MEDS ORDERED: SODIUM CHLORIDE 0.9% 1000ML 2,000 ML ONE (09:07)
[2017-11-02] MEDS: PANTOPRAZOLE 40 MG 10ML VIAL IV SCH (09:10)
[2017-11-02] MEDS ORDERED: MANNITOL 25% 12.5GM/50 ML VIAL IV PRN (09:30)
[2017-11-02] MEDS ORDERED: ALBUMIN 25% 12.5GM 50 ML IV PRN (09:30)
[2017-11-02] MEDS ORDERED: SODIUM CHLORIDE 0.9% 1000ML 1,000 ML IV PRN (09:30)
[2017-11-02] MEDS ORDERED: SODIUM CHLORIDE 0.9% 500ML 500 ML ONE (12:14)
[2017-11-02] MEDS: LEVOFLOXACIN 250 MG TAB PO SCH (16:00)
[2017-11-02] MEDS ORDERED: LIDOCAINE HCL 2% LOCAL INJ 5 ML SDV VIAL INJ ONE (18:12)
[2017-11-02] MEDS ORDERED: PROPOFOL IV EMULSION 10 MG/ML 50 ML VIAL ONE (18:12)
[2017-11-02] MEDS ORDERED: MIDAZOLAM HCL 2 MG/2 ML VIAL ONE (18:31)
--- NOTE | 2017-11-02 21:56 | Discharge Summary ---
FINAL DIAGNOSES 1. Recurrent abdominal pain secondary to most likely adhesions with multiple abdominal surgeries. 2. End-stage renal disease, on dialysis. SUMMARY: Patient is a 72-year-old female, who came in with abdominal pain. The patient has chronic abdominal pain for some time now. She had extensive multiple surgical interventions in the abdomen. She had multiple scars. She had multiple healing incisions. The patient came in with abdominal pain. A workup was, otherwise, unremarkable. She did receive dialysis. Patient did have hyperkalemia that was, subsequently, treated. The patient was stable. Arrangement for dialysis. The patient will continue with her dialysis as an outpatient. No further workup needed. Advised the patient to follow up with her general office associate as an outpatient for any further workup. Again, the patient has extensive workup for abdominal pain previously. Pain most likely consistent with adhesions. Patient is high risk for any exploratory surgery at this time. Job#: [id number] CQ
[2017-11-02] MEDS: ASPIRIN 81 MG CHEW TAB PO SCH (21:57)
[2017-11-02] MEDS ORDERED: BISACODYL 5 MG TAB EC PO ONE (23:00)
[2017-11-03 04:20] VITALS: BP 136/75
[2017-11-03] MEDS: LEVOTHYROXINE SODIUM 100 MCG TAB PO SCH (05:55)
[2017-11-03 07:20] VITALS: BP 103/64
[2017-11-03 07:40] VITALS: BP 103/64
[2017-11-03] MEDS: MORPHINE SULFATE 2 MG/ML SYR IV PRN (08:40)
[2017-11-03] MEDS: AMIODARONE HCL 200 MG TAB PO SCH (09:30)
[2017-11-03] MEDS: PANTOPRAZOLE 40 MG 10ML VIAL IV SCH (09:30)
[2017-11-03] MEDS: METRONIDAZOLE 500 MG TAB PO SCH (09:30)
[2017-11-03 11:37] VITALS: BP 108/68
[2017-11-03] MEDS: LEVOFLOXACIN 250 MG TAB PO SCH (11:45)
[2017-11-03] MEDS ORDERED: NORCO 10-325 T1 EACH PO (13:05)
[2017-11-03] MEDS ORDERED: ZOFRAN ODT4 MG SL (13:06)
[2017-11-03] MEDS ORDERED: SENNA LAXATIVE1 EACH PO (13:07)
== END 2017-11-03 13:50 | disposition home or self-care (01) | DRG 391 ==
LOC: ER 07:34 → MED/SURG3 14:45
PROVIDERS: ADMIT Internal Medicine; ATTEND Internal Medicine
PROC: 5A1D70Z Performance of Urinary Filtration, Intermittent, Less than 6 Hours Per Day (ICD-10-PCS; 2017-10-28)
PROC: 5A1D70Z Performance of Urinary Filtration, Intermittent, Less than 6 Hours Per Day (ICD-10-PCS; 2017-10-31)
PROC: 0DBN8ZX Excision of Sigmoid Colon, Via Natural or Artificial Opening Endoscopic, Diagnostic (ICD-10-PCS; principal; 2017-11-02 11:30)
DX: K52.3 Indeterminate colitis (principal); N18.6 End stage renal disease; I12.0 Hypertensive chronic kidney disease with stage 5 chronic kidney disease or end stage renal disease; K57.30 Diverticulosis of large intestine without perforation or abscess without bleeding; Z99.2 Dependence on renal dialysis; K63.5 Polyp of colon; K66.0 Peritoneal adhesions (postprocedural) (postinfection); I25.5 Ischemic cardiomyopathy; E03.9 Hypothyroidism, unspecified; Z79.52 Long term (current) use of systemic steroids; I25.10 Atherosclerotic heart disease of native coronary artery without angina pectoris; E78.5 Hyperlipidemia, unspecified; E20.8 Other hypoparathyroidism; Z88.2 Allergy status to sulfonamides; Z95.1 Presence of aortocoronary bypass graft; K80.20 Calculus of gallbladder without cholecystitis without obstruction; Z90.49 Acquired absence of other specified parts of digestive tract; D63.1 Anemia in chronic kidney disease; I48.91 Unspecified atrial fibrillation; Z79.01 Long term (current) use of anticoagulants; Z95.2 Presence of prosthetic heart valve; E87.5 Hyperkalemia
CPT/HCPCS: 36415; 45380; 71045; 74176; 80048; 80053; 82150; 82607; 82746; 83605; 83690; 84132; 84443; 85025; 86677; 86705; 87340; 88305; 90962; 99284; J0696; J2001; J2250; J2270; J2405; J7030; J7040